=== PATIENT | female | born 1950 | race Caucasian/White ===

== ENCOUNTER 2017-01-22 15:38 | Emergency (ER) | payer MEDICARE ==
[2017-01-22] MEDS ORDERED: oxyCODONE TAB* 5 MG TAB PO ONE (16:31)
--- NOTE | 2017-01-22 16:56 | RAD ---
HISTORY: Hip pain, status post fall COMPARISONS: None relevant TECHNIQUE: Multiple contiguous axial CT images are obtained of the pelvis, with coronal and sagittal multiplanar reconstructions, without intravenous contrast administration. FINDINGS: BONE DENSITY: Normal. BONES: There are subacute appearing pelvic fractures of the left inferior pubic ramus and superior pubic ramus. There is minimal displacement. There is minimal periosteal reaction and callus formation There is a bone island of L5. There is a nondisplaced oblique transverse fracture through the S2 vertebral body. JOINTS: There is mild osteoarthritis of the hips bilaterally. MUSCULATURE: Unremarkable ALIGNMENT: There is no dislocation. SOFT TISSUES: Unremarkable. OTHER FINDINGS: Degenerative changes are noted of the spine IMPRESSION: 1. SUBACUTE APPEARING FRACTURES OF THE LEFT INFERIOR AND SUPERIOR PUBIC RAMI. 2. NONDISPLACED FRACTURE THROUGH THE S2 VERTEBRAL BODY.
--- NOTE | 2017-01-22 16:57 | ED ---
Lower Extremity - HPI Summary HPI Summary: 66F w/ PMH of cardiac disease presents with right hip pain for 2 weeks s/p fall two weeks ago. She fell out of wheelchair two weeks ago and landed on her butt. She has been able to ambulate with pain to the right hip. She normal gets around with walker or wheelchair. She states pain since has been constant but today it got worst. She denies any loss of bowel or bladder and saddle anaesthesia. she states she took an unknown amount of norco today. She states she ran out of oxycodone so do not take any today. She has a follow up with ortho for tuesday already and PT set up also. - History of Current Complaint Chief Complaint: EDExtremityLower Stated Complaint: RIGHT HIP PAIN Time Seen by Provider: 01/22/17 16:15 Pain Intensity: 6 - Allergies/Home Medications Allergies/Adverse Reactions: Allergies Allergy/AdvReac Type Severity Reaction Status Date / Time Penicillins [PCN] Allergy Unknown Rash And Verified 01/22/17 15:45 Itching PMH/Surg Hx/FS Hx/Imm Hx Endocrine/Hematology History: Reports: Hx Anticoagulant Therapy, Hx Diabetes Denies: Hx Blood Disorders, Hx Blood Transfusions, Hx Bone Marrow Disease, Hx Systemic Lupus Erythematosus, Hx Sickle Cell Disease, Hx Thyroid Disease, Hx Anemia, Hx Unexplained Bleeding, Other Endocrine/Hematological Disorders Cardiovascular History: Reports: Hx Angina, Hx Auto Implanted Cardiovert Defib, Hx Cardiomegaly, Hx Congestive Heart Failure, Hx Coronary Artery Disease - CABG, Cardiomyopthy,ICD, Hx Hypertension, Hx Myocardial Infarction, Hx Pacemaker/ICD, Hx 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, Other Cardiovascular Problems/ Disorders - DOUBLE BYPASS & MITRAL VALVE REPLACEMENT Denies: Hx Aneurysm, Hx Angioplasty, Hx Cardiac Arrest, Hx Congenital Heart Disease, Hx Deep Vein Thrombosis, Hx Hypercholesterolemia, Hx Hypotension, Hx Peripheral Vascular Disease, Hx Rheumatic Fever, Hx Syncope Respiratory History: Reports: Hx Pulmonary Edema Denies: Hx Asthma, Hx Chronic Bronchitis, Hx Chronic Obstructive Pulmonary Disease (COPD), Hx Cystic Fibrosis, Hx Lung Cancer, Hx Pleural Effusion, Hx Pneumonia, Hx Pulmonary Embolism, Hx Seasonal Allergies, Hx Sleep Apnea, Other Respiratory Problems/Disorders GI History: Denies: Hx Cirrhosis, Hx Crohn's Disease, Hx Diverticulosis, Hx Gall Bladder Disease, Hx Gastroesophageal Reflux Disease, Hx Gastrointestinal Bleed, Hx Hiatal Hernia, Hx Irritable Bowel, Hx Jaundice, Hx Obstructive Bowel, Hx Ileostomy, Hx Pyloric Stenosis, Hx Ulcer, Other GI Disorders History: Reports: Hx Kidney Stones Denies: Hx Acute Renal Failure, Hx Benign Prostatic Hyperplasia, Hx Chronic Renal Failure, Hx Dialysis, Hx Kidney Infection, Other Problems/Disorders Musculoskeletal History: Denies: Other Musculoskeletal History Sensory History: Reports: Hx Cataracts - 07/18 TOM, Hx Contacts or Glasses, Hx Vision Problem - 02/13/13: glasses Denies: Hx Eye Injury, Hx Eye Prosthesis, Hx Glaucoma, Hx Macular Degeneration, Hx Deafness, Hx Hearing Aid, Hx Hearing Problem, Other Sensory Impairments Opthamlomology History: Reports: Hx Cataracts - 07/18 TOM, Hx Contacts or Glasses, Hx Vision Problem - 02/13/13: glasses Denies: Hx Eye Injury, Hx Eye Prosthesis, Hx Glaucoma, Hx Macular Degeneration, Other Sensory Impairments Neurological History: Reports: Other Neuro Impairments/Disorders - DIABETIC NEUROPATHY Denies: Hx Dementia, Hx Developmental Delay Psychiatric History: Reports: Hx Depression Denies: Hx Anxiety, Hx Attention Deficit Hyperactivity Disorder, Hx Eating Disorder, Hx Panic Disorder, Hx Post Traumatic Stress Disorder, Hx Inpatient Treatment, Hx Community Mental Health Tx, Hx Schizophrenia, Hx Bipolar Disorder , Hx Suicide Attempt, Hx of Violent Episodes Against Others, Hx Substance Abuse , Other Psychiatric Issues/Disorders - Cancer History Hx Chemotherapy: No Hx Radiation Therapy: No - Surgical History Surgery Procedure, Year, and Place: CABG 12/2012, Cataracts 07/2013, Defib/ pacemaker 2012, C section, Gastric bypass 2002, paniculectomy Hx Anesthesia Reactions: No Infectious Disease History: No Infectious Disease History: Denies: Hx Clostridium Difficile, Hx Hepatitis, Hx Shingles, Hx Tuberculosis , Traveled Outside the [place] in Last 30 Days - Family History Known Family History: Positive: Cardiac Disease - Social History Alcohol Use: Rare Substance Use Type: Reports: None Smoking Status (MU): Former Smoker Type: Cigarettes Have You Smoked in the Last Year: No Review of Systems Negative: Fever Negative: Chest Pain Negative: Shortness Of Breath Positive: Myalgia - right hip pain All Other Systems Reviewed And Are Negative: Yes Physical Exam Triage Information Reviewed: Yes Vital Signs On Initial Exam: Initial Vitals Temp Pulse Resp BP Pulse Ox 98.2 F 80 18 114/59 100 01/22/17 15:40 01/22/17 15:40 01/22/17 15:40 01/22/17 15:40 01/22/17 15:40 Vital Signs Reviewed: Yes Appearance: Positive: Pain Distress Skin: Positive: Warm, Dry Head/Face: Positive: Normal Head/Face Inspection Eyes: Positive: Normal, Conjunctiva Clear ENT: Positive: Normal ENT inspection, Pharynx normal, TMs normal Respiratory/Lung Sounds: Positive: Clear to Auscultation, Breath Sounds Present Cardiovascular: Positive: Normal, RRR Musculoskeletal: Positive: Strength/ROM Intact - left hip, Limited @ - right hip due to pain, Passive ROM intake right hip, Other - good pulses Diagnostics - Vital Signs Vital Signs Temp Pulse Resp BP Pulse Ox 01/22/17 15:40 98.2 F 80 18 114/59 100 - Laboratory Lab Statement: Any lab studies that have been ordered have been reviewed, and results considered in the medical decision making process. - CT pelvis CT Interpretation: Positive (See Comments) - IMPRESSION: 1. SUBACUTE APPEARING FRACTURES OF THE LEFT INFERIOR AND SUPERIOR PUBIC RAMI. 2. NONDISPLACED FRACTURE THROUGH THE S2 VERTEBRAL BODY. CT Interpretation Completed By: Radiologist Lower Extremity Course/Dx - Course Course Of Treatment: 66F presents with right hip pain for 2 weeks s/p fall out of wheelchair. She states pain has remained constant for 2 weeks. Her pain is over right hip but fracture is on left side. has been able to ambulate with pain. says pain was just with walking but today started at rest. denies any new injury today. CT shows fracture S4 and left pelvic rami. spoke with dr day for pain managment advise and decided to do equilvant dose of oxycodone into morphine as patient would like morphine so dose is 37 so will have use morphine 15mg twice a day to start and 3 as needed in 2 days if pain not controlled and follow up with dr desai. patient understands and agrees with plan - Diagnoses Differential Diagnosis/HQI/PQRI: Positive: Fracture (Closed), Sprain, Strain Provider Diagnoses: Pelvic fracture - Physician Notifications Discussed Care of Patient With: dr day Time Discussed With Above Provider: 17:45 - discussed pain options, patient wants morphine so suggested start equivalent dose of oxycodone in morphine Discharge - Discharge Plan Condition: Good Disposition: HOME Prescriptions: Morphine TAB (NF) 15 mg PO BID PRN #9 tab MDD 3 PRN Reason: Pain Patient Education Materials: Pelvic Fracture (ED) Referrals: Rubens Desai MD [Primary Care Provider] - Additional Instructions: Take hydrocodone as normal prescribed Take morphine twice a day with minimum of 6 hours between dosage, if pain is very severe can do up to 3 tablets a day Follow up with ortho office Follow up with Dr Desai in 3-4 days Return to ED if develop any new or worsening symptoms
[2017-01-22 17:55] VITALS: BP 104/52
== END 2017-01-22 18:02 | disposition home or self-care (01) ==
LOC: ED 15:38
DX: S32.9XXA Fracture of unspecified parts of lumbosacral spine and pelvis, initial encounter for closed fracture (principal); W05.0XXA Fall from non-moving wheelchair, initial encounter; Y92.9 Unspecified place or not applicable; Z88.0 Allergy status to penicillin; Z87.891 Personal history of nicotine dependence; E11.40 Type 2 diabetes mellitus with diabetic neuropathy, unspecified
CPT/HCPCS: 72192; 99282; A9270-GY

== ENCOUNTER 2017-02-08 12:17 | Inpatient (IN) | payer MEDICARE ==
[2017-02-08] MEDS ORDERED: NS 0.9% 1000 ML* 1,000 ML IV ONE (13:18)
[2017-02-08 13:34] LABS: Hematocrit 33 % (35-47); Mean Corpuscular HGB Conc 33 g/dl (31-36); Mean Corpuscular Hemoglobin 31 pg (27-31); Mean Corpuscular Volume 94 fL (80-97); Mean Platelet Volume 10 um3 (7.4-10.4); Red Blood Count 3.55 10^6/ul (4.0-5.4); Red Cell Distribution Width 14 % (10.5-15)
[2017-02-08 13:46] LABS: Albumin 3.8 g/dL (3.2-5.2); BUN/Creatinine Ratio 38.4 (8-20); C Reactive Protein 20.75 mg/L (< 5.00); EGFR African American 24.4 (>60); Globulin 3.9 g/dL (2-4); Magnesium 2.4 mg/dL (1.9-2.7); Potassium 2.8 mmol/L (3.5-5.0); Total Bilirubin 0.6 mg/dL (0.2-1.0); Total Protein 7.7 g/dL (6.4-8.9)
[2017-02-08 13:57] LABS: TSH (Thyroid Stimulating Horm) 2.27 mcIU/mL (0.34-5.60)
[2017-02-08] MEDS ORDERED: Potassium Chlor TAB* 20 MEQ TAB.ER PO ONE ×2 (14:42→21:00)
[2017-02-08] MEDS: KCL 10 MEQ/50 ML IVPREMIX* 10 MEQ/50 ML BAG IV SCH ×2 (14:50→17:09)
[2017-02-08] MEDS ORDERED: Morphine INJ* 4 MG/ML 1 ML SYRINGE IV PRN (15:42)
[2017-02-08] MEDS ORDERED: Ondansetron INJ* 2 MG/ML VIAL IV PRN (15:42)
[2017-02-08] MEDS ORDERED: Acetaminophen TAB* 325 MG PO PRN (15:42)
[2017-02-08] MEDS ORDERED: NS 0.9% 1000 ML* 1,000 ML IV SCH ×2 (15:45→16:03)
[2017-02-08] MEDS ORDERED: Dextrose 50% Syringe 50 ML* 25 GM/50 ML SYRINGE IV PUSH PRN (15:46)
[2017-02-08] MEDS ORDERED: Morphine TAB (NF) 15 MG TAB PO PRN (15:47)
[2017-02-08] MEDS: Cyclobenzaprine TAB* 10 MG PO PRN (16:15)
--- NOTE | 2017-02-08 16:20 | HP ---
HISTORY AND PHYSICAL:* ADDENDUM: Ms. Gustafson is a 66-year-old female with a history of cardiomyopathy with EF of 25% who stayed over the weekend at one of the local rehab facilities after she was noted to have severe hip pain when she came back from a recent visit to [facility]. She came in to the hospital with complaints of generalized weakness and she was noted to have acute renal failure with hypokalemia, hyponatremia, and hypochloremia. The patient has had significant doses of Lasix at home and she most likely had not been drinking well and had been taking her usual doses of Lasix. The patient is going to be admitted with diagnosis of acute renal failure. She is going to be rehydrated and her diuretic doses are going to be adjusted. Further to evaluate the patient's kidneys, CT without contrast is going to be performed. We will also try to evaluate the patient's bilateral hips while doing the CT of the pelvis. For further details of the patient's presentation and plan, please see history and physical dictated by Candido Mchugh NP, on 02/19 with which I agree. [id number]/CPS #: [id number] MTDD
[2017-02-08 16:26] LABS: Urine Bacteria 1+ (Absent); Urine Bilirubin Negative (Negative); Urine Glucose Negative (Negative); Urine Nitrite Positive (Negative)
[2017-02-08] MEDS ORDERED: Warfarin TAB(*) 2 MG PO SCH (17:00)
[2017-02-08] MEDS ORDERED: cefTRIAXone VIAL(*) 1,000 MG in NS 0.9% 50 ML* 50 ML IVPB SCH (17:00)
--- NOTE | 2017-02-08 17:26 | RAD ---
INDICATION: Right hip pain, acute renal failure. COMPARISON: Comparison is made with a prior CT study of the abdomen and chest from January 09, [address] of the pelvis from January 22, 2017. TECHNIQUE: A CT scan of the abdomen and pelvis was performed without intravenous or oral contrast. Contiguous axial sections were obtained from the lung bases through the symphysis pubis. Images were reconstructed in the coronal and sagittal planes. FINDINGS: There are linear densities at the right lung base most consistent with subsegmental atelectasis. No pleural effusion is seen. No pleural effusion is present. The liver and spleen are within normal limits in size without significant focal abnormality on this noncontrast study. No calcified gallstones are seen. The pancreas appears to be within normal limits in size. The adrenal glands and kidneys are normal in size. There is suggestion of a punctate 1 mm calculus in the lower pole of the right kidney. The calyces and renal pelvises are slightly prominent and similar to the prior exam. 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 No ureteral or bladder calculi are seen. The aorta is normal in caliber with moderate calcific plaque present. No significant enlarged retroperitoneal lymph nodes are seen. The patient appears to be status post gastric bypass surgery which is not well-defined on this noncontrast study. The stomach, small and large bowel appear nondistended. The appendix is within normal limits. There is no evidence for diverticulitis or colitis. No free intraperitoneal air or fluid is seen. There is a chronic mild to moderate compression fracture of the superior endplate of the L3 vertebral body. There is an oblique subacute nondisplaced fracture through the lateral aspect of the S1 vertebra on the right side which appears unchanged. There are comminuted subacute fractures of the left superior and inferior pubic rami which appear similar to the prior exam with bony callus present. No right hip fracture is seen. No hip joint effusion is appreciated. IMPRESSION: 1. 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 THIS APPEARS UNCHANGED FROM THE PRIOR STUDY. 2. SUBACUTE COMMINUTED FRACTURES OF THE LEFT SUPERIOR AND INFERIOR PUBIC RAMI. 3. NONDISPLACED SUBACUTE FRACTURE OF THE S1 VERTEBRA.
[2017-02-08 17:30] LABS: Urine Bacteria 1+ (Absent); Urine Bilirubin Negative (Negative); Urine Glucose Negative (Negative); Urine Nitrite Negative (Negative)
--- NOTE | 2017-02-08 17:43 | HP ---
ATTENDING PHYSICIAN ADDENDUM NOW INCLUDED ON THIS REPORT CC: Dr. Cunningham* HISTORY AND PHYSICAL: DATE OF ADMISSION: 02/08/17 PRIMARY CARE PROVIDER: Dr. Cunningham. ATTENDING PHYSICIAN WHILE IN THE HOSPITAL: Dr. Queenie Hanley * (report dictated by Candido Mchugh NP) CHIEF COMPLAINT: Abnormal labs. HISTORY OF PRESENT ILLNESS: Ms. Gustafson is a 66-year-old female patient who about a week ago was in [facility]. She was ambulating up and down stairs at her daughter's apartment. When she got back from [place] last week, she was having significant amount of right hip pain to the point where she went to the emergency department. She was evaluated on the and was found to have rami fracture in the pelvis and she was also found to have a sacral fracture. She was discharged with pain control. Unfortunately though, the pain has progressed, actually to the point where she was having to caring for herself. She sought care with Dr. Cunningham who evaluated her and felt that she would benefit from a correction facility for rehab and she checked in to [facility] on Tuesday. Labs were obtained and it was found that she had acute renal failure. She does state to me that she has not been really eating or drinking well. She says the pain in her right hip has been progressively getting worse. She denied having any recent trauma to the hip. She does state that she fell in December and in November. The patient states that she has had decreased intake. She says the pain has been increasing. She denies having any pain shooting down the legs. She denies any weakness to the legs. She says that her biggest complaint is that she has pain in her right hip. She denies having any chest pain. No shortness of breath. She denies having any abdominal pain. There has been no nausea or vomiting. She says she had been taking her diuretics as prescribed. She came in to the ER after she was referred here by the [facility] for evaluation. It was noted that she was in acute renal failure and the hospitalist service was asked to evaluate for admission. PAST MEDICAL HISTORY: Significant for: 1. Diabetes. 2. CKD. 3. Depression. 4. Hyperlipidemia. 5. AFib. 6. Neuropathy. 7. Nephropathy. 8. Retinopathy. 9. CAD. 10. CHF with a last known EF of 20% to 25%. 11. History of CVA. PAST SURGICAL HISTORY: 1. She has had gastric bypass. 2. She has had a cholecystectomy. 3. Cataract extraction. 4. . 5. Lithotripsy. 6. CABG with a mitral valve repair. 7. Pacemaker and ICD placement. HOME MEDICATIONS: According to [facility] list include: 1. Morphine 15 mg every 2 hours as needed. 2. Tylenol 650 mg every 4 hours as needed. 3. MiraLAX 17 g p.o. daily. 4. Coumadin 3 mg Tuesday, Tuesday, , Tuesday. 5. Melatonin 5 mg at bedtime. 6. Warfarin 2 mg Tuesday, Tuesday, Tuesday. 7. Lasix 40 mg Tuesday, Tuesday, . 8. Lasix 120 mg Tuesday, Tuesday, Tuesday, Tuesday. 9. Benadryl 50 mg daily at bedtime. 10. Coreg 6.25 mg p.o. b.i.d. 11. Candesartan 8 mg daily. 12. Lipitor 10 mg daily. 13. Morphine (MS Contin) 30 mg p.o. b.i.d. 14. Allopurinol 300 mg a day. 15. Trazodone 50 mg at bedtime. 16. Zoloft 100 mg daily. 17. Prandin 0.5 mg p.o. daily. 18. Zaroxolyn 2.5 mg Tuesday. 19. Lantus 8 units subcu daily. 20. Multivitamin 1 tablet daily. ALLERGIES TO MEDICATIONS: PENICILLIN. FAMILY HISTORY: Her mother and father both had heart attacks. Her mother is a diabetic. SOCIAL HISTORY: She does not smoke. She does not drink. Surrogate decision maker is her and her daughter. REVIEW OF SYSTEMS: There is no documented fever. She denied having any significant weight change. There is no double vision. No ear discharge. She denied having any rhinorrhea. No sore throat. No thyroid enlargement. She denied having any chest pain. There was no orthopnea. No nocturnal dyspnea. There was no abdominal pain. No nausea. No vomiting. No dysuria. No frequency. There was no seizure. No loss of consciousness. No pruritus and no skin ulcerations. Review of 14 systems completed, all others negative. PHYSICAL EXAMINATION GENERAL: At this time, Ms. Gustafson is a 66-year-old female patient. She is sitting in the ER stretcher. She does not appear to be in any acute distress. VITAL SIGNS: Blood pressure 104/57, pulse 88, respirations 18, O2 sat 99%, and temperature 97.5. HEENT: Head is atraumatic and normocephalic. Eyes: EOMs are intact. Sclerae were anicteric and not pale. Throat: Oral mucosa appears to be dry. No oropharyngeal erythema. NECK: Supple. LUNGS: Clear to auscultation. No wheezes, rales, or rhonchi. HEART: Sounds S1, S2. Regular rate and rhythm. No murmurs, rubs, or gallops. ABDOMEN: Soft, flat, and nontender. Bowel sounds present. EXTREMITIES: She has limited range of motion to the right lower hip; particularly when you go to extend or flex the hip she has pain right along the right lateral aspect of the right hip. It does not radiate down the leg. She has no weakness. Her range of motion is limited due to pain. She is able to move the left leg, 5/5 strength. Distal CSM checks are intact bilaterally. NEUROLOGIC: She is awake, alert. She is oriented x3. Her tongue is midline. Scouring Machine Tender are equal. No gross focal deficits. SKIN: Intact. LABORATORY DATA AND DIAGNOSTIC STUDIES: Today revealed WBC of 10.0, RBC of 3.55, hemoglobin 11.3, hematocrit 33, platelet count 250. Sodium 132, potassium 2.8, chloride of 88 , bicarb 29, BUN 98, creatinine is 2.55, her baseline creatinine appears to be about 1.5 to 1.7. Her glucose 167, lactic 1.6 , calcium 10. Total bili 0.6. Magnesium 2.4. AST 24, ALT 14, alk phos 207. CRP of 20. Albumin 3.8. TSH of 2.27. She did have an EKG obtained today which revealed a normal sinus rhythm. No ST elevation. She had inverted T waves in leads II and aVL, but she has had that previously. She does have what appears to be LVH, but again, the EKGs appear to be similar. She did have an echo just done beginning of January almost about a month ago which did show EF of 20% to 25%. She did have a pelvis CT done on the 20th, which impression: Subacute- appearing fracture of the left inferior and superior rami, nondisplaced fracture to the S2 vertebral body. She did have a nuclear medicine scan which showed impression: Limited exam due to magnitude of activity with obstruction of the inferior wall on both stress and rest exams suggestive of ischemia in the anteroseptal junction from the apex to the base. Dilated left ventricle and diffuse hypokinesis with relative sparing of the anterior wall. Low normal left ventricular ejection fraction. Old medical records were reviewed. ASSESSMENT AND PLAN: Ms. Gustafson is a 66-year-old female patient coming in to the ER today with complaints of worsening right hip pain and abnormal lab data. She will be admitted under inpatient status for: 1. Acute renal failure: I suspect this is probably prerenal from dehydration. She has been taking a pretty good dose of Lasix and her output has not done very well, which I suspect is probably because she is not eating as much because she is on pain medication which is suppressing her appetite. My plan at this point is to go ahead and send off a FENa. I am going to get a CT of the abdomen and pelvis to make sure there is no hydronephrosis. She is urinating here. I am going to hydrate her slowly and then when able we would restart her diuretics. May have to do it at a reduced dose. 2. Right hip pain: I am going to re-image the pelvis to make sure there has not been any progression of the sacral fractures or the rami fractures. There has been no trauma. 3. Diabetes: Lispro sliding scale. 4. Depression: Supportive care will be continued. 5. Hyperlipidemia: Continue statin therapy. 6. Atrial fibrillation: Continue warfarin. She is in sinus. We will follow. 7. Neuropathy: Continue with the current medical regimen. 8. Retinopathy: She can follow up with her primary. 9. Nephropathy: Again, she does have worsening kidney function here today. We will hydrate her and send off a FENa, but I think this is most likely prerenal. 10. History of congestive heart failure: I am going to hold the Lasix and diuretics. I am just going to give her a liter of fluids slowly throughout the next 24 hours. We will monitor her closely as obviously she has increased risk for going into heart failure and we will again diurese her as needed. 11. Coronary artery disease: Continue her beta belle with hold parameters. Stain to be continued. 12. History of cerebrovascular accident: Continue secondary prevention. 13. Code status: Full code. 14. Fluids, electrolytes, and nutrition: She can have a consistent carbohydrate diet. TIME SPENT: Time spent on the admission was approximately 70 minutes; greater than half the time was spent face to face with the patient obtaining my history and physical, other half the time spent going over the plan of care with the patient and implementing plan of care. I did discuss the plan of care with my attending, Dr. Hanley; she is in agreement. CANDIDO MCHUGH NP ADDENDUM: Ms. Gustafson is a 66-year-old female with a history of cardiomyopathy with EF of 25% who stayed over the weekend at one of the local rehab facilities after she was noted to have severe hip pain when she came back from a recent visit to [facility]. She came in to the hospital with complaints of generalized weakness and she was noted to have acute renal failure with hypokalemia, hyponatremia, and hypochloremia. The patient has had significant doses of Lasix at home and she most likely had not been drinking well and had been taking her usual doses of Lasix. The patient is going to be admitted with diagnosis of acute renal failure. She is going to be rehydrated and her diuretic doses are going to be adjusted. Further to evaluate the patient's kidneys, CT without contrast is going to be performed. We will also try to evaluate the patient's bilateral hips while doing the CT of the pelvis. For further details of the patient's presentation and plan, please see history and physical dictated by Candido Mchugh NP, on 02/19 with which I agree. QUEENIE HANLEY MD [id number] #: [id number] #: [id number] LUZ MARIA
[2017-02-08] MEDS: Morphine INJ* 2 MG/ML 1 ML SYRINGE IV PRN (18:28)
[2017-02-08] MEDS: Atorvastatin* 10 MG TAB PO SCH (18:29)
[2017-02-08] MEDS: Insulin LISPRO* 1 UNITS UNIT SUBCUT SCH (18:29)
[2017-02-08] MEDS: traZODone TAB* 50 MG TAB PO SCH (22:16)
[2017-02-08] MEDS: Carvedilol TAB* 6.25 MG PO SCH (22:16)
[2017-02-08] MEDS: Morphine TAB Extended Release (*) 30 MG TAB.ER PO SCH (23:08)
[2017-02-09 04:52] LABS: Hematocrit 30 % (35-47); Hemoglobin 9.6 g/dl (12.0-16.0); Mean Corpuscular HGB Conc 32 g/dl (31-36); Mean Corpuscular Hemoglobin 31 pg (27-31); Mean Corpuscular Volume 95 fL (80-97); Mean Platelet Volume 9 um3 (7.4-10.4); Red Blood Count 3.14 10^6/ul (4.0-5.4); Red Cell Distribution Width 14 % (10.5-15); White Blood Count 8.3 10^3/ul (3.5-10.8)
[2017-02-09 05:09] LABS: EGFR African American 33.6 (>60); EGFR Non-African American 26.1 (>60); Potassium 3.6 mmol/L (3.5-5.0)
--- NOTE | 2017-02-09 07:17 | ED ---
Adams Ash SooYoung, scribed for David Patel MD on 02/08/17 at 1243 . Complex/Multi-Sys Presentation - HPI Summary HPI Summary: A 66 y/o F presents to ED with abnormal lab values and dehydration after having labs drawn this AM [employer] H[employer]. Secondary complaint of shooting pain down leg due to a known hip and pelvis hairline fracture onset last week. She is currently taking morphine and as a result has been eating or drinking much less than usual. Denies other pain, SOB, CP. Pt has previously taken morphine after CABG surgery. - History Of Current Complaint Chief Complaint: EDGeneral Time Seen by Provider: 02/08/17 12:41 Hx Obtained From: Patient, Family/Sap Portal Architect - Onset/Duration: Lasting Hours, Still Present Timing: Constant Severity Currently: Moderate Associated Signs And Symptoms: Positive: Other - pos: abnormal lab values; dehydration. Negative: SOB, Chest Pain, Abdominal Pain - Allergies/Home Medications Allergies/Adverse Reactions: Allergies Allergy/AdvReac Type Severity Reaction Status Date / Time Penicillins [PCN] Allergy Unknown Rash And Verified 01/22/17 15:45 Itching Home Medications: Home Medications Acetaminophen TAB* [Tylenol TAB*] 650 mg PO Q4H PRN MDD 3000 mg 02/08/17 [ History Confirmed 02/08/17] Candesartan Cilexetil [Atacand] 8 mg PO DAILY 02/08/17 [History Confirmed ] Furosemide TAB* [Lasix TAB*] 40 mg PO SUTUTH 02/08/17 [History Confirmed ] Furosemide TAB* [Lasix TAB*] 120 mg PO MOWEFRSA 02/08/17 [History Confirmed 02/19] Insulin GLARGINE(*) [Lantus(*)] 8 units SUBCUT DAILY 02/08/17 [History Confirmed 02/08/17] Melatonin 5 mg PO BEDTIME 02/08/17 [History Confirmed 02/08/17] Metolazone TAB* [Zaroxolyn TAB*] 2.5 mg PO BEASLEY 02/08/17 [History Confirmed ] Morphine Sulfate [Diana] 10 mg PO ONCE 02/08/17 [History Confirmed 02/08/17] Morphine TAB (NF) 15 mg PO Q2HR PRN 02/08/17 [History Confirmed 02/08/17] Morphine TAB Extended Rel(*) [Ms Contin(*)] 30 mg PO BID 02/08/17 [History Confirmed 02/08/17] Multivitamins/Minerals TAB* [Theragran/minerals TAB*] 1 tab PO DAILY 02/08/17 [ History Confirmed 02/08/17] Polyethylene Glycol 3350* [Miralax*] 17 gm PO DAILY 02/08/17 [History Confirmed 02/08/17] Repaglinide TAB* [Prandin TAB*] 0.5 mg PO DAILY 02/08/17 [History Confirmed 02/19] Sertraline* [Zoloft*] 100 mg PO DAILY 02/08/17 [History Confirmed 02/08/17] Warfarin TAB(*) [Coumadin TAB(*)] 2 mg PO SUTUFR 02/08/17 [History Confirmed 02/19] Warfarin TAB(*) [Coumadin TAB(*)] 3 mg PO MOWETHSA 02/08/17 [History Confirmed 02/08/17] diPHENhydraMINE PO* [Benadryl PO 50 MG CAP*] 50 mg PO BEDTIME 02/08/17 [History Confirmed 02/08/17] traZODone TAB* [Desyrel TAB*] 50 mg PO BEDTIME 02/08/17 [History Confirmed 02/08] PMH/Surg Hx/FS Hx/Imm Hx Previously Healthy: No Endocrine/Hematology History: Reports: Hx Anticoagulant Therapy, Hx Diabetes Denies: Hx Blood Disorders, Hx Blood Transfusions, Hx Bone Marrow Disease, Hx Systemic Lupus Erythematosus, Hx Sickle Cell Disease, Hx Thyroid Disease, Hx Anemia, Hx Unexplained Bleeding, Other Endocrine/Hematological Disorders Cardiovascular History: Reports: Hx Angina, Hx Auto Implanted Cardiovert Defib, Hx Cardiomegaly, Hx Congestive Heart Failure, Hx Coronary Artery Disease - CABG, Cardiomyopthy,ICD, Hx Hypertension, Hx Myocardial Infarction, Hx Pacemaker/ICD, Hx 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, Other Cardiovascular Problems/ Disorders - DOUBLE BYPASS & MITRAL VALVE REPLACEMENT Denies: Hx Aneurysm, Hx Angioplasty, Hx Cardiac Arrest, Hx Congenital Heart Disease, Hx Deep Vein Thrombosis, Hx Hypercholesterolemia, Hx Hypotension, Hx Peripheral Vascular Disease, Hx Rheumatic Fever, Hx Syncope Respiratory History: Reports: Hx Pulmonary Edema Denies: Hx Asthma, Hx Chronic Bronchitis, Hx Chronic Obstructive Pulmonary Disease (COPD), Hx Cystic Fibrosis, Hx Lung Cancer, Hx Pleural Effusion, Hx Pneumonia, Hx Pulmonary Embolism, Hx Seasonal Allergies, Hx Sleep Apnea, Other Respiratory Problems/Disorders GI History: Denies: Hx Cirrhosis, Hx Crohn's Disease, Hx Diverticulosis, Hx Gall Bladder Disease, Hx Gastroesophageal Reflux Disease, Hx Gastrointestinal Bleed, Hx Hiatal Hernia, Hx Irritable Bowel, Hx Jaundice, Hx Obstructive Bowel, Hx Ileostomy, Hx Pyloric Stenosis, Hx Ulcer, Other GI Disorders History: Reports: Hx Kidney Stones Denies: Hx Acute Renal Failure, Hx Benign Prostatic Hyperplasia, Hx Chronic Renal Failure, Hx Dialysis, Hx Kidney Infection, Other Problems/Disorders Musculoskeletal History: Denies: Other Musculoskeletal History Sensory History: Reports: Hx Cataracts - 07/18 TOM, Hx Contacts or Glasses, Hx Vision Problem - 02/13/13: glasses Denies: Hx Eye Injury, Hx Eye Prosthesis, Hx Glaucoma, Hx Macular Degeneration, Hx Deafness, Hx Hearing Aid, Hx Hearing Problem, Other Sensory Impairments Opthamlomology History: Reports: Hx Cataracts - 07/18 TOM, Hx Contacts or Glasses, Hx Vision Problem - 02/13/13: glasses Denies: Hx Eye Injury, Hx Eye Prosthesis, Hx Glaucoma, Hx Macular Degeneration, Other Sensory Impairments Neurological History: Reports: Other Neuro Impairments/Disorders - DIABETIC NEUROPATHY Denies: Hx Dementia, Hx Developmental Delay Psychiatric History: Reports: Hx Depression Denies: Hx Anxiety, Hx Attention Deficit Hyperactivity Disorder, Hx Eating Disorder, Hx Panic Disorder, Hx Post Traumatic Stress Disorder, Hx Inpatient Treatment, Hx Community Mental Health Tx, Hx Schizophrenia, Hx Bipolar Disorder , Hx Suicide Attempt, Hx of Violent Episodes Against Others, Hx Substance Abuse , Other Psychiatric Issues/Disorders - Cancer History Hx Chemotherapy: No Hx Radiation Therapy: No - Surgical History Surgery Procedure, Year, and Place: CABG 12/2012, Cataracts 07/2013, Defib/ pacemaker 2012, C section, Gastric bypass 2002, paniculectomy Hx Anesthesia Reactions: No - Immunization History Date of Tetanus Vaccine: UTD Date of Influenza Vaccine: UTD Infectious Disease History: No Infectious Disease History: Denies: Hx Clostridium Difficile, Hx Hepatitis, Hx Shingles, Hx Tuberculosis , Traveled Outside the [place] in Last 30 Days - Family History Known Family History: Positive: Cardiac Disease - Social History Occupation: Retired Lives: Alone Alcohol Use: Rare Hx Substance Use: No Substance Use Type: Reports: None Hx Tobacco Use: Yes Smoking Status (MU): Former Smoker Type: Cigarettes Have You Smoked in the Last Year: No Review of Systems Positive: Other - pos: dehydrated; abnormal lab values Negative: Chest Pain Negative: Shortness Of Breath Negative: Abdominal Pain All Other Systems Reviewed And Are Negative: Yes Physical Exam - Summary Physical Exam Summary: Vital signs: reviewed General: Patient is comfortable lying in stretcher with no signs of distress HEENT: within normal limits except for dry nasal and oral mucosa. Lungs: CTA B/L CVS: S1 & S2 present. No murmurs appreciated. ABDOMEN: Soft, non-tender. No signs of distention. No rebound no guarding, and no masses palpated. Bowel sounds are normal. EXTREMITIES: Decreased ROM in the lower extremities secondary to ramus fracture. . NEURO: Alert and oriented x 3. No acute neurological deficits. Speech is normal and follows commands. SKIN: Dry and warm Triage Information Reviewed: Yes Vital Signs On Initial Exam: Initial Vitals Temp Pulse Resp BP Pulse Ox 97.5 F 78 16 107/63 100 02/08/17 12:29 02/08/17 12:29 02/08/17 12:29 02/08/17 12:29 02/08/17 12:29 Vital Signs Reviewed: Yes - Ruthy Coma Scale Coma Scale Total: 15 Diagnostics - Vital Signs Vital Signs Temp Pulse Resp BP Pulse Ox 02/08/17 12:29 97.5 F 78 16 107/63 100 - Laboratory Lab Results: Lab Results 02/08/17 02/08/17 02/08/17 Range/Units 12:55 12:55 12:55 WBC 10.0 (3.5-10.8) 10^3/ul RBC 3.55 L (4.0-5.4) 10^6/ul Hgb 11.0 L (12.0-16.0) g/dl Hct 33 L (35-47) % MCV 94 (80-97) fL MCH 31 (27-31) pg MCHC 33 (31-36) g/dl RDW 14 (10.5-15) % Plt Count 250 (150-450) 10^3/ul MPV 10 (7.4-10.4) um3 Neut % (Auto) 77.8 (38-83) % Lymph % (Auto) 13.4 L (25-47) % [place] % (Auto) 4.6 (1-9) % Eos % (Auto) 3.2 (0-6) % Baso % (Auto) 1.0 (0-2) % Absolute Neuts (auto) 7.8 H (1.5-7.7) 10^3/ul Absolute Lymphs (auto) 1.3 (1.0-4.8) 10^3/ul Absolute Monos (auto) 0.5 (0-0.8) 10^3/ul Absolute Eos (auto) 0.3 (0-0.6) 10^3/ul Absolute Basos (auto) 0.1 (0-0.2) 10^3/ul Absolute Nucleated RBC 0 10^3/ul Nucleated RBC % 0 INR (Anticoag Therapy) (0.89-1.11) Sodium 132 L (133-145) mmol/L Potassium 2.8 L (3.5-5.0) mmol/L Chloride 88 L (101-111) mmol/L Carbon Dioxide 29 (22-32) mmol/L Anion Gap 15 H (2-11) mmol/L BUN 98 H (6-24) mg/dL Creatinine 2.55 H (0.51-0.95) mg/dL Est GFR ( Amer) 24.4 (>60) Est GFR (Non-Af Amer) 19.0 (>60) BUN/Creatinine Ratio 38.4 H (8-20) Glucose 167 H (70-100) mg/dL Lactic Acid 1.6 (0.5-2.0) mmol/L Calcium 10.0 (8.6-10.3) mg/dL Magnesium 2.4 (1.9-2.7) mg/dL Total Bilirubin 0.60 (0.2-1.0) mg/dL AST 25 (13-39) U/L ALT 14 (7-52) U/L Alkaline Phosphatase 207 H (34-104) U/L C-Reactive Protein 20.75 H (< 5.00) mg/L Total Protein 7.7 (6.4-8.9) g/dL Albumin 3.8 (3.2-5.2) g/dL Globulin 3.9 (2-4) g/dL Albumin/Globulin Ratio 1.0 (1-3) TSH 2.27 (0.34-5.60) mcIU/mL 02/08/17 Range/Units 12:55 WBC (3.5-10.8) 10^3/ul RBC (4.0-5.4) 10^6/ul Hgb (12.0-16.0) g/dl Hct (35-47) % MCV (80-97) fL MCH (27-31) pg MCHC (31-36) g/dl RDW (10.5-15) % Plt Count (150-450) 10^3/ul MPV (7.4-10.4) um3 Neut % (Auto) (38-83) % Lymph % (Auto) (25-47) % Gal[place] % (Auto) (1-9) % Eos % (Auto) (0-6) % Baso % (Auto) (0-2) % Absolute Neuts (auto) (1.5-7.7) 10^3/ul Absolute Lymphs (auto) (1.0-4.8) 10^3/ul Absolute Monos (auto) (0-0.8) 10^3/ul Absolute Eos (auto) (0-0.6) 10^3/ul Absolute Basos (auto) (0-0.2) 10^3/ul Absolute Nucleated RBC 10^3/ul Nucleated RBC % INR (Anticoag Therapy) 1.74 H (0.89-1.11) Sodium (133-145) mmol/L Potassium (3.5-5.0) mmol/L Chloride (101-111) mmol/L Carbon Dioxide (22-32) mmol/L Anion Gap (2-11) mmol/L BUN (6-24) mg/dL Creatinine (0.51-0.95) mg/dL Est GFR ( Amer) (>60) Est GFR (Non-Af Amer) (>60) BUN/Creatinine Ratio (8-20) Glucose (70-100) mg/dL Lactic Acid (0.5-2.0) mmol/L Calcium (8.6-10.3) mg/dL Magnesium (1.9-2.7) mg/dL Total Bilirubin (0.2-1.0) mg/dL AST (13-39) U/L ALT (7-52) U/L Alkaline Phosphatase (34-104) U/L C-Reactive Protein (< 5.00) mg/L Total Protein (6.4-8.9) g/dL Albumin (3.2-5.2) g/dL Globulin (2-4) g/dL Albumin/Globulin Ratio (1-3) TSH (0.34-5.60) mcIU/mL Result Diagrams: 02/08/17 12:55 02/08/17 12:55 Lab Statement: Any lab studies that have been ordered have been reviewed, and results considered in the medical decision making process. 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 Secondary complaint of shooting pain down leg due to a known hip and pelvis hairline fracture onset last week. She is currently taking morphine and as a result has been eating or drinking much less than usual. Denies other pain, SOB, CP. Pt has previously taken morphine after CABG surgery. Test results show slight chronic anemia, sodium of 132, potassium of 2.8, BUN of 98, creatine of 2.55 which is consistent with acute on chronic renal failure. C-RP is 20.75. UA is contaminated and will wait for urine cultures. . In ED course, pt given IV fluids, since pt's dehydration may be cause of the acute renal failure. Pt given KCl. Discussed findings and results with Dr. Cunningham, PCP, who recommends admittance to the medical team. Discussed with Dr. Hanley who accepted pt for admission. - Diagnoses Differential Diagnoses/HQI/PQRI: Other - Dehydration, Renal failure Provider Diagnoses: Renal failure, Dehydration - Physician Notifications Discussed Care Of Patient With: Rubens Cunningham - PCP Time Discussed With Above Provider: 15:03 Instructed by Provider To: Other - recommends admitting pt Discharge - Discharge Plan Condition: Stable Disposition: ADMITTED TO [facility] Consult Consult: 1505: Dr. Hanley, hospitalist Will admit. The documentation as recorded by the Adams hagen SooYoung accurately reflects the service I personally performed and the decisions made by me, David Patel MD.
[2017-02-09] MEDS ORDERED: Polyethylene Glycol 3350* 17 GM PACKET PO SCH (09:00)
[2017-02-09] MEDS: Insulin GLARGINE(*) 1 UNITS UNIT SUBCUT SCH (09:11)
[2017-02-09] MEDS: Insulin LISPRO* 1 UNITS UNIT SUBCUT SCH ×3 (09:12→17:25)
[2017-02-09] MEDS: Sertraline* 100 MG TAB PO SCH (09:13)
[2017-02-09] MEDS: Morphine TAB Extended Release (*) 30 MG TAB.ER PO SCH (09:13)
[2017-02-09] MEDS: Carvedilol TAB* 6.25 MG PO SCH ×2 (09:13→20:57)
--- NOTE | 2017-02-09 09:24 | PN ---
Subjective - Subjective Reason for Note: Progress Note History: I have reviewed presentation with the Adam Gustafson, her Mian who is present at this visit and with the H and P provided by Eze Mchugh NP. I am her primary care physician and have been involved in her recent medical care. She sustained fractures of her left superior and inferior pubic rami, she also has a subacute fracture of S1. There is a gap of several weeks between the fall she sustained from her wheelchair and the onset of pain. I recommended to the family she transfer to [facility] as she was not safe at home. She was there over the weekend and has become dehydrated and presented to the emergency room with pre-renal renal insufficiency ontop of underlying chronic diabetic nephropathy with CKD. She has been eating and drinking at [place]. However, she told me she was offered soda and can't drink this owing to her previous bariatric surgery. This morning she has 7/10 right hip pain at rest and this increases on any movement. She is unable to mobilize. However, she has managed PT at [facility]. She ate 1/2 her meal last night and is drinking. She has been given IVF. 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) I51.89 Coronary artery disease (Chronic) I25.10 History of bariatric surgery (Chronic) Z98.84 History of cerebrovascular disease (Chronic) Z86.79 History of coronary artery bypass graft x 2 (Chronic) Z95.1 Presence of combination internal cardiac defibrillator (ICD) and pacemaker ( Chronic) Z95.810 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) E11.22, N18.3 Type 2 diabetes mellitus (Chronic) Current Medications: Current Medications Acetaminophen (Tylenol Tab*) 650 mg PO Q4H PRN PRN Reason: FEVER/PAIN Atorvastatin Calcium (Lipitor*) 10 mg PO QPM [facility] Last Admin: 02/08/17 18:29 Dose: 10 mg Carvedilol (Coreg Tab*) 6.25 mg PO BID [facility] Last Admin: 02/09/17 09:13 Dose: 6.25 mg Cyclobenzaprine HCl (Flexeril Tab*) 10 mg PO BID PRN PRN Reason: SPASMS Last Admin: 02/08/17 16:15 Dose: 10 mg Dextrose (D50w Syringe 50 Ml*) 12.5 gm IV PUSH .FOR FS < 60 - SS PRN PRN Reason: FS < 60 Sodium Chloride (Ns 0.9% 1000 Ml*) 1,000 mls @ 75 mls/hr IV PER RATE [facility] Ceftriaxone Sodium 1,000 mg/ (Sodium Chloride) 50 mls @ 200 mls/hr IVPB Q24H [facility] Last Admin: 02/08/17 22:09 Dose: 200 mls/hr Insulin Glargine (Lantus(*)) 8 units SUBCUT DAILY [facility] Last Admin: 02/09/17 09:11 Dose: 8 units Insulin Human Lispro (Humalog*) 0 units SUBCUT AC [facility] PRN Reason: Protocol Last Admin: 02/09/17 09:12 Dose: 3 units Morphine Sulfate (Ms Contin(*)) 30 mg PO BID [facility] Last Admin: 02/09/17 09:13 Dose: 30 mg Morphine Sulfate (Morphine Inj (Syringe)*) 2 mg IV Q4H PRN PRN Reason: PAIN Last Admin: 02/08/17 18:28 Dose: 2 mg Ondansetron HCl (Zofran Inj*) 4 mg IV Q6H PRN PRN Reason: NAUSEA Oxycodone HCl (Roxycodone Tab*) 10 mg PO Q6H PRN PRN Reason: PAIN Polyethylene Glycol/Electrolytes (Miralax*) 17 gm PO DAILY [facility] Last Admin: 02/09/17 09:19 Dose: Not Given Sertraline HCl (Zoloft*) 100 mg PO DAILY [facility] Last Admin: 02/09/17 09:13 Dose: 100 mg Trazodone HCl (Desyrel Tab*) 50 mg PO BEDTIME [facility] Last Admin: 02/08/17 22:16 Dose: 50 mg Warfarin Sodium (Coumadin Tab(*)) 2 mg PO SuTuFr@1700 [facility] PRN Reason: Protocol Last Admin: 02/08/17 18:29 Dose: 2 mg Warfarin Sodium (Coumadin Tab(*)) 3 mg PO MoWeThSa@1700 [facility] PRN Reason: Protocol - Review of Systems Constitutional Symptoms: No: Fever Cardiology: Negative: Chest Pain, Shortness of Breath, Palpitations, Swelling of Ankles Gastroenterology: Negative: Abdominal Pain, Nausea, Vomiting, Change in Bowel Habits - BM yesterday Genital - Urinary: Positive: Normal Home Medications: Home Medications Medication Instructions Recorded Confirmed Type Allopurinol TAB* [Zyloprim 300 MG 300 mg PO DAILY 12/11/12 02/08/17 History TAB*] Carvedilol TAB* [Coreg TAB*] 6.25 mg PO BID 12/11/12 02/08/17 History Atorvastatin* [Lipitor 10 MG*] 10 mg PO QPM 02/12/13 02/08/17 History Acetaminophen TAB* [Tylenol TAB*] 650 mg PO Q4H PRN MDD 3000 mg 02/08/17 History Candesartan Cilexetil [Atacand] 8 mg PO DAILY 02/08/17 02/08/17 History Furosemide TAB* [Lasix TAB*] 40 mg PO SUTUTH 02/08/17 02/08/17 History Furosemide TAB* [Lasix TAB*] 120 mg PO MOWEFRSA 02/08/17 02/08/17 History Insulin GLARGINE(*) [Lantus(*)] 8 units SUBCUT DAILY 02/08/17 02/08/17 History Melatonin 5 mg PO BEDTIME 02/08/17 02/08/17 History Metolazone TAB* [Zaroxolyn TAB*] 2.5 mg PO BEASLEY 02/08/17 02/08/17 History Morphine Sulfate [Diana] 10 mg PO ONCE 02/08/17 02/08/17 History Morphine TAB (NF) 15 mg PO Q2HR PRN 02/08/17 02/08/17 History Morphine TAB Extended Rel(*) [Ms 30 mg PO BID 02/08/17 02/08/17 History Contin(*)] Multivitamins/Minerals TAB* 1 tab PO DAILY 02/08/17 02/08/17 History [Theragran/minerals TAB*] Polyethylene Glycol 3350* 17 gm PO DAILY 02/08/17 02/08/17 History [Miralax*] Repaglinide TAB* [Prandin TAB*] 0.5 mg PO DAILY 02/08/17 02/08/17 History Sertraline* [Zoloft*] 100 mg PO DAILY 02/08/17 02/08/17 History Warfarin TAB(*) [Coumadin TAB(*)] 2 mg PO SUTUFR 02/08/17 02/08/17 History Warfarin TAB(*) [Coumadin TAB(*)] 3 mg PO MOWETHSA 02/08/17 02/08/17 History diPHENhydraMINE PO* [Benadryl PO 50 mg PO BEDTIME 02/08/17 02/08/17 History 50 MG CAP*] traZODone TAB* [Desyrel TAB*] 50 mg PO BEDTIME 02/08/17 02/08/17 History Allergies: Allergies Allergy/AdvReac Type Severity Reaction Status Date / Time Penicillins [PCN] Allergy Unknown Rash And Verified 01/22/17 15:45 Itching Objective - Vital Signs Vital Signs: Vital Signs 02/08/17 02/08/17 02/08/17 16:00 16:38 17:00 Temperature Pulse Rate 90 84 80 Respiratory Rate Blood Pressure 107/85 122/71 114/59 (mmHg) O2 Sat by Pulse 100 100 86 Oximetry 02/08/17 02/08/17 02/08/17 17:17 17:21 18:25 Temperature 97.6 F 97.5 F Pulse Rate 91 88 Respiratory 16 Rate Blood Pressure 129/72 (mmHg) O2 Sat by Pulse 100 100 Oximetry 02/08/17 02/08/17 02/08/17 18:28 20:00 20:08 Temperature 98.0 F Pulse Rate 76 Respiratory 16 18 18 Rate Blood Pressure 76/47 (mmHg) O2 Sat by Pulse 97 Oximetry 02/08/17 02/08/17 02/09/17 20:15 23:08 00:00 Temperature Pulse Rate 75 Respiratory 18 20 Rate Blood Pressure 88/57 (mmHg) O2 Sat by Pulse Oximetry 02/09/17 02/09/17 02/09/17 00:11 01:08 01:59 Temperature 98.6 F Pulse Rate 80 Respiratory 20 16 16 Rate Blood Pressure 90/54 (mmHg) O2 Sat by Pulse 96 Oximetry 02/09/17 02/09/17 02/09/17 03:49 07:27 07:38 Temperature 98.1 F 97.8 F Pulse Rate 74 78 Respiratory 20 16 18 Rate Blood Pressure 103/52 111/53 (mmHg) O2 Sat by Pulse 98 99 Oximetry 02/09/17 09:13 Temperature Pulse Rate Respiratory 20 Rate Blood Pressure (mmHg) O2 Sat by Pulse Oximetry - Intake and Output Intake and Output: Intake & Output 02/06/17 02/07/17 02/08/17 02/09/17 11:59 11:59 11:59 11:59 Intake Total 699 Output Total 400 Balance 299 Weight 170 lb Intake: IV Fluids 599 NS (0.9%) 549 potassium 10 meq 50 IVPB 50 potassium 10 meq 50 Oral 50 Output: Urine 400 Other: Estimated Void Medium # Bowel Movements 0 # Voids 2 ADLs: Meal Record Start: 02/08/17 16: 35 Freq: DAILY@0900,1400,1800 Status: Active Document 02/08/17 18:00 [id number] (Rec: 02/08/17 20:45 [id number]) Intake and Output Start: 02/08/17 16: 35 Freq: DAILY@0600,1400,2200 Status: Active Document 02/08/17 22:00 [id number] (Rec: 02/08/17 22:22 [id number]) Document 02/09/17 06:00 [id number] (Rec: 02/09/17 06:09 [id number]) - Physical Exam General: No Cyanosis, Yes Anemia, No Jaundice, No Clubbing Lungs and Chest: Yes: Chest Expansion Full, Chest Expansion Symetrica, Percussion Note Resonant, Vessicular Breath Sounds. No: Crackles, Wheezes, Respiratory Distress Heart Rate and Rhythm: Regular JVP: Not Elevated Additional Cardiovascular: Yes: Normal Heart Sounds. No: Heart Murmur, Pedal Edema Abdominal Exam: Yes: Soft, Bowel Sounds Present. No: Distention, Abdominal Mass , Hepatomegaly, Abdominal Tenderness - Extremities Cranial Nerves II-XII Intact: Yes Limbs: Normal Power - legs limited by pain, Normal Tone Results - Results Lab Results: Laboratory Results - last 24 hr 02/08/17 02/08/17 02/08/17 15:56 17:10 17:10 WBC RBC Hgb Hct MCV MCH MCHC RDW Plt Count MPV Neut % (Auto) Lymph % (Auto) [place] % (Auto) Eos % (Auto) Baso % (Auto) Absolute Neuts (auto) Absolute Lymphs (auto) Absolute Monos (auto) Absolute Eos (auto) Absolute Basos (auto) Absolute Nucleated RBC Nucleated RBC % INR (Anticoag Therapy) Sodium Potassium Chloride Carbon Dioxide Anion Gap BUN Creatinine Est GFR ( Amer) Est GFR (Non-Af Amer) BUN/Creatinine Ratio Glucose POC Glucose (mg/dL) Calcium Urine Color Yellow Yellow Urine Appearance Cloudy Cloudy Urine pH 5.0 5.0 Ur Specific [place] 1.008 L 1.008 L Urine Protein Negative Negative Urine Ketones Negative Negative Urine Blood Negative Negative Urine Nitrate Positive H Negative Urine Bilirubin Negative Negative Urine Urobilinogen Negative Negative Ur Leukocyte Esterase 2+ H 2+ H Urine WBC (Auto) 1+(6-10/hpf) H 1+(6-10/hpf) H Urine RBC (Auto) Absent Trace(0-2/hpf) Ur Squamous Epith Cells Present H Present H Urine Bacteria 1+ H 1+ H Hyaline Casts Present H Ur Random Creatinine 53.13 Ur Random Sodium 72 Urine Glucose Negative Negative 02/08/17 02/09/17 02/09/17 18:06 04:32 04:32 WBC 8.3 RBC 3.14 L Hgb 9.6 L Hct 30 L MCV 95 MCH 31 MCHC 32 RDW 14 Plt Count 205 MPV 9 Neut % (Auto) 63.0 Lymph % (Auto) 25.1 [place] % (Auto) 5.0 Eos % (Auto) 6.1 H Baso % (Auto) 0.8 Absolute Neuts (auto) 5.2 Absolute Lymphs (auto) 2.1 Absolute Monos (auto) 0.4 Absolute Eos (auto) 0.5 Absolute Basos (auto) 0.1 Absolute Nucleated RBC 0 Nucleated RBC % 0 INR (Anticoag Therapy) 1.78 H Sodium Potassium Chloride Carbon Dioxide Anion Gap BUN Creatinine Est GFR ( Amer) Est GFR (Non-Af Amer) BUN/Creatinine Ratio Glucose POC Glucose (mg/dL) 184 H Calcium Urine Color Urine Appearance Urine pH Ur Specific [place] Urine Protein Urine Ketones Urine Blood Urine Nitrate Urine Bilirubin Urine Urobilinogen Ur Leukocyte Esterase Urine WBC (Auto) Urine RBC (Auto) Ur Squamous Epith Cells Urine Bacteria Hyaline Casts Ur Random Creatinine Ur Random Sodium Urine Glucose 02/09/17 02/09/17 04:32 07:31 WBC RBC Hgb Hct MCV MCH MCHC RDW Plt Count MPV Neut % (Auto) Lymph % (Auto) [place] % (Auto) Eos % (Auto) Baso % (Auto) Absolute Neuts (auto) Absolute Lymphs (auto) Absolute Monos (auto) Absolute Eos (auto) Absolute Basos (auto) Absolute Nucleated RBC Nucleated RBC % INR (Anticoag Therapy) Sodium 136 Potassium 3.6 Chloride 99 L Carbon Dioxide 30 Anion Gap 7 BUN 85 H Creatinine 1.93 H Est GFR ( Amer) 33.6 Est GFR (Non-Af Amer) 26.1 BUN/Creatinine Ratio 44.0 H Glucose 168 H POC Glucose (mg/dL) 163 H Calcium 9.0 Urine Color Urine Appearance Urine pH Ur Specific [place] Urine Protein Urine Ketones Urine Blood Urine Nitrate Urine Bilirubin Urine Urobilinogen Ur Leukocyte Esterase Urine WBC (Auto) Urine RBC (Auto) Ur Squamous Epith Cells Urine Bacteria Hyaline Casts Ur Random Creatinine Ur Random Sodium Urine Glucose Radiology Results: Patient Name: RUI GUSTAFSON Medical Record#: [id number] Ordering Physician: Candido Mchugh [employer]PERATOR Acct.#: [id number] : 1950 Age: 66 Sex: F Location: [address] [place] [address]/TELEMETRY Exam Date: 02/08/17 1542 ADM Status: ADM IN Order Information: CT ABD/PEL W/O Accession Number: [id number] CPT: 79827 INDICATION: Right hip pain, acute renal failure. COMPARISON: Comparison is made with a prior CT study of the abdomen and chest from January 09, [address] of the pelvis from January 22, 2017. TECHNIQUE: A CT scan of the abdomen and pelvis was performed without intravenous or oral contrast. Contiguous axial sections were obtained from the lung bases through the symphysis pubis. Images were reconstructed in the coronal and sagittal planes. FINDINGS: There are linear densities at the right lung base most consistent with subsegmental atelectasis. No pleural effusion is seen. No pleural effusion is present. The liver and spleen are within normal limits in size without significant focal abnormality on this noncontrast study. No calcified gallstones are seen. The pancreas appears to be within normal limits in size. The adrenal glands and kidneys are normal in size. There is suggestion of a punctate 1 mm calculus in the lower pole of the right kidney. The calyces and renal pelvises are slightly prominent and similar to the prior exam. 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 No ureteral or bladder calculi are seen. The aorta is normal in caliber with moderate calcific plaque present. No significant enlarged retroperitoneal lymph nodes are seen. The patient appears to be status post gastric bypass surgery which is not well- defined on this noncontrast study. The stomach, small and large bowel appear nondistended. The appendix is within normal limits. There is no evidence for diverticulitis or colitis. No free intraperitoneal air or fluid is seen. There is a chronic mild to moderate compression fracture of the superior endplate of the L3 vertebral body. There is an oblique subacute nondisplaced fracture through the lateral aspect of the S1 vertebra on the right side which appears unchanged. There are comminuted subacute fractures of the left superior and inferior pubic rami which appear similar to the prior exam with bony callus present. No right hip fracture is seen. No hip joint effusion is appreciated. IMPRESSION: 1. 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 THIS APPEARS UNCHANGED FROM THE PRIOR STUDY. 2. SUBACUTE COMMINUTED FRACTURES OF THE LEFT SUPERIOR AND INFERIOR PUBIC RAMI. 3. NONDISPLACED SUBACUTE FRACTURE OF THE S1 VERTEBRA. 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 Following her admission to [facility] she clearly was not drinking enough for the dose of her furosemide. Her BUN/Cr have improved overnight with IV hydration. She is not quite at baseline (in the past she was best with a BUN of around 70, though recently this has been lower). She requires further acute hospital observation. We need to get the balance of hydration/diuretic therapy correct Right hip pain (Acute)Closed compression fracture of sacrum (Acute)Fracture of left inferior pubic ramus (Acute)Fracture of superior pubic ramus (Acute) Her pain followed several weeks after her fall. The pain is on the right side, despite the fractures in her pubic rami on the left. I discussed this with radiology. She has right and left sided sacral fractures as well as multiple pelvic fractures. There is some OA of the hips. I asked about a bone scan - this is not needed as everything is explained by the current radiology. I will therefor treat with pain management/PT. 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 I spoke to Rui Gustafson and Mian Ventura (). She requires ongoing acute hospital care until her hydration/CHF protocol is well controlled. They agree with the management plan.
[2017-02-09] MEDS ORDERED: Polyethylene Glycol 3350* 17 GM PACKET PO PRN (09:38)
--- NOTE | 2017-02-09 13:13 | PN ---
Progress Note - Progress Note Note: Phone call: Prisca Robles MD [phone] She is concerned at the disproportionate right hip pain and thinks she needs an MRI. I told her I discussed this with radiology this morning and that they didn' t think it was necessary. Both of us think it is clinically indicated and so I will order the test.
[2017-02-09] MEDS ORDERED: oxyCODONE TAB* 5 MG TAB PO PRN (16:05)
[2017-02-09] MEDS: Warfarin TAB(*) 3 MG PO SCH (17:24)
[2017-02-09] MEDS: Atorvastatin* 10 MG TAB PO SCH (17:24)
[2017-02-09] MEDS: traZODone TAB* 50 MG TAB PO SCH (20:57)
[2017-02-09] MEDS: cefTRIAXone VIAL(*) 1,000 MG in NS 0.9% 50 ML* 50 ML IVPB SCH (21:52)
[2017-02-10] MEDS: Morphine INJ* 2 MG/ML 1 ML SYRINGE IV PRN ×2 (06:46→23:31)
[2017-02-10 07:43] LABS: Hematocrit 27 % (35-47); Hemoglobin 8.9 g/dl (12.0-16.0); Mean Corpuscular HGB Conc 33 g/dl (31-36); Mean Corpuscular Hemoglobin 31 pg (27-31); Mean Corpuscular Volume 95 fL (80-97); Mean Platelet Volume 9 um3 (7.4-10.4); Red Blood Count 2.86 10^6/ul (4.0-5.4); Red Cell Distribution Width 14 % (10.5-15); White Blood Count 6.7 10^3/ul (3.5-10.8)
[2017-02-10 07:54] LABS: BUN/Creatinine Ratio 40.4 (8-20); C Reactive Protein 10.43 mg/L (< 5.00); Calcium 8.9 mg/dL (8.6-10.3); EGFR African American 41.4 (>60); EGFR Non-African American 32.2 (>60); Potassium 3.3 mmol/L (3.5-5.0)
[2017-02-10] MEDS: Insulin GLARGINE(*) 1 UNITS UNIT SUBCUT SCH (08:03)
[2017-02-10] MEDS: Insulin LISPRO* 1 UNITS UNIT SUBCUT SCH ×3 (08:03→16:56)
[2017-02-10] MEDS: Carvedilol TAB* 6.25 MG PO SCH ×2 (08:04→22:06)
[2017-02-10] MEDS: Sertraline* 100 MG TAB PO SCH (08:04)
[2017-02-10] MEDS: oxyCODONE TAB* 5 MG TAB PO PRN (12:13)
[2017-02-10] MEDS: Potassium Chlor TAB* 20 MEQ TAB.ER PO SCH (12:13)
--- NOTE | 2017-02-10 13:26 | RAD ---
CPT II Codes: 3570F INDICATION: Pelvic pain after a fall COMPARISON: CT abdomen pelvis dated February 08, 2017 TECHNIQUE: 20.67 mCi of Tc-99m HDP were injected IV. The whole body was scanned in anterior and posterior projections approximately 2 hours after the injection. FINDINGS: There is increased uptake overlying the left superior pubic ramus with uptake extending to the location of the pubic symphysis. There is uptake bilaterally at the sacrum and involving the S1 vertebral body. Chronic appearing and symmetric uptake is seen at the shoulders, knees and ankles which is more consistent with age-appropriate degenerative changes. The kidneys are normal in size and position and without evidence for obstructive uropathy. IMPRESSION: There is uptake at the S1 vertebral body, sacrum and left superior pubic ramus. This uptake corresponds to the pubic ramus fracture identified on the 6617 CT examination and is compatible with nondisplaced fracture of the S1 vertebral body and sacral insufficiency fracture.
[2017-02-10] MEDS: Atorvastatin* 10 MG TAB PO SCH (16:56)
[2017-02-10] MEDS: Warfarin TAB(*) 3 MG PO SCH (16:57)
[2017-02-10] MEDS: cefTRIAXone VIAL(*) 1,000 MG in NS 0.9% 50 ML* 50 ML IVPB SCH (22:06)
[2017-02-10] MEDS: traZODone TAB* 50 MG TAB PO SCH (22:06)
[2017-02-10] MEDS: Cyclobenzaprine TAB* 10 MG PO PRN (23:32)
[2017-02-11] MEDS: Morphine INJ* 2 MG/ML 1 ML SYRINGE IV PRN (04:56)
[2017-02-11 06:04] LABS: Hematocrit 29 % (35-47); Hemoglobin 9.3 g/dl (12.0-16.0); Mean Corpuscular HGB Conc 33 g/dl (31-36); Mean Corpuscular Hemoglobin 31 pg (27-31); Mean Corpuscular Volume 95 fL (80-97); Mean Platelet Volume 8 um3 (7.4-10.4); Red Blood Count 3.02 10^6/ul (4.0-5.4); Red Cell Distribution Width 14 % (10.5-15); White Blood Count 7.7 10^3/ul (3.5-10.8)
[2017-02-11 06:17] LABS: Albumin 3.1 g/dL (3.2-5.2); BUN/Creatinine Ratio 32.3 (8-20); C Reactive Protein 6.64 mg/L (< 5.00); Calcium 9.2 mg/dL (8.6-10.3); EGFR Non-African American 43.5 (>60); Globulin 3.2 g/dL (2-4); Magnesium 1.8 mg/dL (1.9-2.7); Phosphorus 2.1 mg/dL (2.5-5.0); Potassium 3.6 mmol/L (3.5-5.0); Total Bilirubin 0.3 mg/dL (0.2-1.0); Total Protein 6.3 g/dL (6.4-8.9)
[2017-02-11 08:39] VITALS: BP 131/70
[2017-02-11] MEDS: Sertraline* 100 MG TAB PO SCH (08:48)
[2017-02-11] MEDS: Potassium Chlor TAB* 20 MEQ TAB.ER PO SCH (08:48)
[2017-02-11] MEDS: Carvedilol TAB* 6.25 MG PO SCH (08:48)
[2017-02-11] MEDS: Insulin LISPRO* 1 UNITS UNIT SUBCUT SCH ×2 (08:49→12:44)
[2017-02-11] MEDS: Insulin GLARGINE(*) 1 UNITS UNIT SUBCUT SCH (08:50)
[2017-02-11] MEDS ORDERED: Furosemide TAB* 40 MG PO SCH (09:00)
--- NOTE | 2017-02-11 12:13 | DS ---
CC: Dr. Robles, [facility]; Dr. Rubens Cunningham DATE OF ADMISSION: 02/08/2017. DATE OF DISCHARGE: 02/11/2017. DISPOSITION: To [facility]. DISCHARGE DIAGNOSES: 1. Prerenal acute renal failure. 2. Pain due to osteoporotic fractures of the pelvis and sacrum. 3. Right hip pain likely due to trochanteric bursitis/trauma. 4. Combined systolic and diastolic cardiac failure. 5. Coronary artery disease. 6. History of bariatric surgery. 7. History of cerebrovascular disease. 8. Status post coronary artery bypass graft. 9. Type 2 diabetes mellitus. 10. Status post ICD/pacemaker. 11. Stage 3 chronic kidney disease. 12. Hyperlipidemia. 13. Chronic atrial fibrillation, on Warfarin. 14. Neuropathy. 15. Retinopathy. 16. Urinary tract infection. HISTORY OF PRESENT ILLNESS: Rui Gustafson is a 66-year-old woman admitted with resting right hip pain and abnormal labs due to acute renal failure. Please see the dictated admission note for details of the present illness, past medical history, family history, social and personal history, review of systems , and physical examination. LABORATORY DATA: On admission, CBC: White blood count 10, hemoglobin/ hematocrit 11/33, PLT 250k. CBC on discharge: WBC 7.7, H and H 9.3/29, MCV 95 , PLT 192k. INR's were 1.74, 1.78, 2.54. Chemistries on admission: Sodium 132 , potassium 2.8, chloride 88, BUN 98, creatinine 2.55. Rest of the comprehensive metabolic panel was abnormal for alk phos 207, CRP 20.75, TSH was normal at 2.27, lactic acid was 1.6, phosphorous was 2.1 on February 11. Chemistries on February 11 prior to discharge: Sodium 141, potassium 3.6, chloride 105, CO2 29, BUN/creatinine 40/1.24, glucose 166, phosphorous 2.1, magnesium 1.8 , alk phos 182, CRP 6.64 (down), total protein/albumin 6.3/3.1. Urinalysis on February 08: Yellow, cloudy, specific gravity of 1.008, nitrite positive, esterase 2+, WBC 1+, bacteria 1+. Microbiology: Urine culture grew out Klebsiella pneumoniae sensitive to all antibiotics tested except for Ampicillin. IMAGING STUDIES: 1. Abdomen/pelvis CT on 02/08/2017 showed mild bilateral hydronephrosis secondary to mild congenital bilateral ureteropelvic junction obstructions, unchanged from prior study. Subacute comminuted fractures of the left superior inferior pubic rami. Nondisplaced subacute fracture of the S1 vertebra. 2. Bone scan, nuclear medicine, confirmed the above noted fractures on CT and showed no other abnormalities. EKG on 02/08/2017 showed a sinus rhythm, PAC, probable inferior infarct, T- waves inverted. HOSPITAL COURSE: The patient was initially admitted and felt to have prerenal failure. It was felt that she had been taking significant doses of Lasix and not been drinking well. She was rehydrated. Her diuretics were initially held , then restarted. The right lateral hip pain was further investigated with a CAT scan and the bone scan. It did not show any additional abnormalities. It is felt likely she had trochanteric bursitis, maybe due to falling on the bursa when she fell one of the two times. It was felt that her other fractures seem to be gradually improving with regards to pain. She seemed quite depressed in the hospital. Her Sertraline will be increased. Her hypokalemia was repleted. Her Furosemide is being resumed. Her urinary tract infection was treated. Her blood sugars were well controlled. There was a thought that she should have an MRI of her hip, but this could not be done because of her pacemaker/ defibrillator. Her BUN and creatinine came down. At the time of discharge, she is not taking much pain medication. She wants to go back to the alf. At the time of discharge, her diet is consistent carbohydrate. She is ALLERGIC TO PENICILLIN. Her activity is up with assistance. MEDICATIONS: 1. Acetaminophen 650 every 4 hours as needed for pain. 2. Multivits one a day. 3. Lantus 8 units subcu daily. 4. Metolazone 2.5 mg every Tuesday. 5. Repaglinide 0.5 mg daily. 6. Sertraline 150 mg daily. 7. Trazodone 50 mg at bedtime. 8. Warfarin 2 mg p.o. three times a week, 1 mg p.o. four times a week. 9. Allopurinol 300 mg daily. 10. Atorvastatin 10 mg daily. 11. Candesartan 8 mg daily. 12. Carvedilol 6.25 mg twice a day. 13. Benadryl 50 mg p.o. at bedtime prn sleep. 14. Lasix 40 mg p.o. daily. 15. Melatonin 5 mg p.o. at bedtime. 16. MiraLax 17 gm p.o. daily. 17. Potassium Chloride 20 mEq p.o. daily. 18. Oxycodone 5 mg q.4 hour prn moderate pain and 10 mg p.o. q.4 hour prn severe pain. She is to be a full code. Laboratory orders are for Tuesday, February 14 for an INR, CBC, BMP. [id number] #: [id number] MTDD
[2017-02-11] MEDS: Cyclobenzaprine TAB* 10 MG PO PRN (12:45)
[2017-02-11] MEDS: oxyCODONE TAB* 5 MG TAB PO PRN (14:58)
== END 2017-02-11 15:00 | DRG 683 ==
LOC: ED 12:17 → MEDTELE 15:38 → MED 02-10 20:59
PROVIDERS: ADMIT Internal Medicine; ATTEND Internal Medicine
DX: N17.9 Acute kidney failure, unspecified (principal); I42.9 Cardiomyopathy, unspecified; E11.40 Type 2 diabetes mellitus with diabetic neuropathy, unspecified; I13.0 Hypertensive heart and chronic kidney disease with heart failure and stage 1 through stage 4 chronic kidney disease, or unspecified chronic kidney disease; E11.21 Type 2 diabetes mellitus with diabetic nephropathy; I50.42 Chronic combined systolic (congestive) and diastolic (congestive) heart failure; E86.0 Dehydration; I48.2 Chronic atrial fibrillation; E87.1 Hypo-osmolality and hyponatremia; N39.0 Urinary tract infection, site not specified; M80.08XA Age-related osteoporosis with current pathological fracture, vertebra(e), initial encounter for fracture; I25.10 Atherosclerotic heart disease of native coronary artery without angina pectoris; F32.9 Major depressive disorder, single episode, unspecified; R40.2412 Glasgow coma scale score 13-15, at arrival to emergency department; E11.22 Type 2 diabetes mellitus with diabetic chronic kidney disease; E78.5 Hyperlipidemia, unspecified; E11.319 Type 2 diabetes mellitus with unspecified diabetic retinopathy without macular edema; E87.6 Hypokalemia; E87.8 Other disorders of electrolyte and fluid balance, not elsewhere classified; N18.3 Chronic kidney disease, stage 3 (moderate); M70.61 Trochanteric bursitis, right hip; B96.1 Klebsiella pneumoniae [K. pneumoniae] as the cause of diseases classified elsewhere; N13.30 Unspecified hydronephrosis; W19.XXXA Unspecified fall, initial encounter; Y92.009 Unspecified place in unspecified non-institutional (private) residence as the place of occurrence of the external cause; Z79.4 Long term (current) use of insulin; Z88.0 Allergy status to penicillin; Z95.810 Presence of automatic (implantable) cardiac defibrillator; Z95.1 Presence of aortocoronary bypass graft; I25.2 Old myocardial infarction; Z95.2 Presence of prosthetic heart valve; Z87.442 Personal history of urinary calculi; Z98.42 Cataract extraction status, left eye; Z98.41 Cataract extraction status, right eye; Z98.84 Bariatric surgery status; Z82.49 Family history of ischemic heart disease and other diseases of the circulatory system; Z87.891 Personal history of nicotine dependence; Z86.73 Personal history of transient ischemic attack (TIA), and cerebral infarction without residual deficits; Z90.49 Acquired absence of other specified parts of digestive tract; Z83.3 Family history of diabetes mellitus; Z79.01 Long term (current) use of anticoagulants
CPT/HCPCS: 36415; 74176; 78306; 80048; 80053; 81003; 81015; 82570; 83605; 83735; 84100; 84300; 84443; 85025; 85610; 86140; 87077; 87086; 87186; 87641; 93005; A9270-GY; A9503; J0696; J2270; J3480

== ENCOUNTER 2017-08-31 14:45 | Inpatient (IN) | payer MEDICARE ==
--- NOTE | 2017-08-20 00:27 | HP ---
AMENDED REPORT NOW INCLUDES COSIGNER DESIGNATION - ESIGNED BEFORE ADJUSTMENT HISTORY AND PHYSICAL: DATE OF ADMISSION/SURGERY: 08/31/17 DATE OF HISTORY AND PHYSICAL: 08/18/17 SURGEON: Dr. Bee * (DICTATED BY JEREMIAS ESTEBAN) PROCEDURE: Right clavicle open reduction internal fixation, removal of hardware with iliac crest bone graft. CHIEF COMPLAINT: Right shoulder pain. HISTORY OF PRESENT ILLNESS: Rui has a complex medical picture and has a history of a previous clavicular fracture with a nonunion. She underwent open reduction internal fixation of that right shoulder with Dr. Bee on 06/29/17. It was noted on her postop visit at 2 weeks and 1 day. X-ray showed a complete failure of the internal fixations in the lateral aspect as well as medial aspect of the clavicle. At that point, she was not having pain; however, at her most recent followup on 06/29/17, she was having significant amount of pain and would like to undergo a revision of the internal fixation of her right clavicle. She is in very complex medical picture with numerous heart issues as well as diabetes. She has been cleared by Dr. Singleton cardiovascularly and Dr. 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 Her last A1C is unknown when her last A1c was; however, her fasting blood sugar this morning was 93 and she reports that she is very well controlled. She denies any history of DVT or PE and no history of problems with anesthesia. PAST MEDICAL HISTORY: Includes type 2 diabetes, insulin dependent; acute kidney failure; stroke x2 thought to happen in 2011; pelvis fracture and hip fracture in December 2016; mitral valve repair; 2 coronary artery bypass x2 vessels ; kidney stones; cardiomyopathy, unspecified, atherosclerosis of coronary artery bypass graft; mitral leaf abnormality; automatic implantable cardiac defibrillator in situ; primary cardiomyopathy. PAST SURGICAL HISTORY: Right ankle surgery in November 2012, gastric bypass Leah- en- Y, cardiac bypass, , lithotripsy, and cardiac surgery x2, clavicular open reduction, internal fixation in June 2017. MEDICATIONS: 1. Atorvastatin 10 mg 1 daily. 2. Allopurinol 300 mg 1 daily. 3. Iron 325 mg 1 daily. 4. Multivitamin 1 daily. 5. Coreg 6.25 mg half tab by mouth twice daily. 6. Lantus 100 units per mL 8 units daily. 7. Repaglinide 0.5 mg one 3 times a day. 8. Warfarin 1 mg 2 mg 6 days a week and 2.5 mg 1 day a week or as directed by Dr. Cunningham's office. 9. Furosemide 40 mg 120 mg, Tuesday, Tuesday, Tuesday and Tuesday, 40 mg Tuesday, and Tuesday. 10. Trazodone HCl 50 mg 1 daily at night as needed. 11. Sertraline HCl 100 mg 1 daily. 12. Morphine 15 mg 1 as needed. 13. Hydrocodone acetaminophen 5/325 one tab every 6 hours as needed. ALLERGIES: PENICILLIN and METFORMIN. FAMILY MEDICAL HISTORY: Mother with cardiac disease and diabetes. Father with strokes and diabetes. SOCIAL HISTORY: She is a nonsmoker. She does drink occasional alcohol. She denies any illicit drug use. REVIEW OF SYSTEMS: Positive for her presenting complaints as well as recent changes in vision. She is not able to walk a flight of stairs or C block. She does endorse kidney problems, history of stroke, depression, numbness and tingling in her feet bilaterally, diabetes and a history of anemia. She does deny any history of DVT, problems with anesthesia, no MRSA, hepatitis C or HIV. PHYSICAL EXAMINATION GENERAL: She is a well-nourished, well-developed, 66-year-old female appearing older than her stated age, in no acute distress. Alert and oriented. VITAL SIGNS: Height 62 inches, weight 162 pounds. Blood pressure 122/72, respirations 20, temperature 97, pain level 7, BMI 29.6. HEENT: Normocephalic, atraumatic. Pupils equally round and reactive to light. Extraocular movements intact. NECK: Supple. No palpable cervical lymph nodes. Thyroid is smooth and nontender. PULMONARY: Lungs are clear to auscultation bilaterally with no wheezes, rales, or rhonchi. CARDIAC: Regular rate with notable murmur and trace pedal edema bilaterally. 2 + radial pulses bilaterally. ABDOMEN: Soft and nontender. MUSCULOSKELETAL: Right upper extremity skin is intact. Incision is well healing. There is no erythema or warmth. She is able to forward flex her shoulder to about to 45, abduct to about 40 degrees. She is tender to palpation along the clavicle. STUDIES: X-rays from 07/14/17 demonstrate complete failure of the open reduction internal fixation of the lateral aspect as well as the medial aspect of the right clavicle. 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 PLAN: Rui is to undergo a right clavicle open reduction internal fixation, removal of hardware with iliac crest bone graft with Dr. Bee on 08/31/17. She will return to the clinic in 10 to 14 days postop for followup and suture removal. Pain medication will be sent for patient on day of surgery. She will use Lovenox for DVT prophylaxis. JEREMIAS ESTEBAN [id number]/[facility] #: [id number] LUZ MARIA
[2017-09-13] MEDS ORDERED: Buffered Lidocaine 0.9% SYRIN* 5 ML/SYR SYRINGE INTRADERM ONE (09:27)
[2017-09-14] MEDS ORDERED: Dexamethasone IV* 4 MG/ML 1 ML (4 MG) IV SLOW PU ONE (06:00)
[2017-09-14] MEDS ORDERED: Famotidine IV* 10 MG/ML 2 ML (20 mg) IV ONE (06:00)
[2017-09-14] MEDS ORDERED: Clindamycin 900 MG IVPREMIX(* 900 MG/50 ML SDV IV ONE (14:08)
[2017-09-14] MEDS ORDERED: Famotidine IV* 10 MG/ML 2 ML (20 mg) ONE (14:08)
[2017-09-14] MEDS ORDERED: Buffered Lidocaine 0.9% SYRIN* 5 ML/SYR SYRINGE ONE (14:08)
[2017-09-14] MEDS ORDERED: Dexamethasone IV* 4 MG/ML 1 ML (4 MG) ONE (14:09)
[2017-09-14] MEDS ORDERED: Midazolam* 1 MG/ML 2 ML VIAL (2 MG) ONE ×2 (14:54→15:43)
[2017-09-14] MEDS ORDERED: fentaNYL* 50 MCG/ML 2 ML VIAL (100 MCG VIAL) ONE ×6 (14:54→20:47)
[2017-09-14] MEDS ORDERED: KETAMINE HCL* 50 MG/ML 10 ML VIAL ONE (14:55)
[2017-09-14] MEDS ORDERED: Propofol* 10 MG/ML 20 ML BTL IV PUSH ONE (14:56)
[2017-09-14] MEDS ORDERED: Phenylephrine INJ* 10 MG/ML 1 ML VIAL (10 MG) ONE (14:56)
[2017-09-14] MEDS ORDERED: EPHEDrine (Pressors)* 50 MG/ML VIAL ONE (14:56)
[2017-09-14] MEDS ORDERED: Lidocaine 2% PF * 5 ML VIAL ONE (15:14)
[2017-09-14] MEDS ORDERED: HYDROmorphone INJ* 1 MG/ML CARPUJECT SYRINGE IV PRN (16:38)
[2017-09-14] MEDS ORDERED: Ondansetron INJ* 2 MG/ML VIAL IV PRN ×2 (16:38→18:49)
[2017-09-14] MEDS ORDERED: DiMENhydriNATE IV* 50 MG/ML VIAL IV PUSH PRN (16:38)
[2017-09-14] MEDS ORDERED: Naloxone* 0.4 MG/ML 1 ML VIAL IV PRN (16:38)
[2017-09-14] MEDS ORDERED: Metoprolol Tartrate IV* 1 MG/ML 5 ML VIAL ONE (17:09)
[2017-09-14] MEDS ORDERED: Bupivacaine 0.25% SDV* 30 ML ONE (18:14)
[2017-09-14] MEDS ORDERED: diPHENhydraMINE IV* 50 MG/ML 1 ml VIAL (BENADRYL) IV PRN (18:49)
[2017-09-14] MEDS ORDERED: oxyCODONE/Acetamin 5/325 MG* TAB PO PRN (18:49)
[2017-09-14] MEDS ORDERED: Morphine INJ* 2 MG/ML 1 ML SYRINGE (TWO MG - NEW SYRINGE VERSION) IV PRN (18:49)
[2017-09-14] MEDS ORDERED: Ondansetron TAB* 4 MG PO PRN (18:49)
[2017-09-14] MEDS ORDERED: Magnesium Hydroxide LIQ* 30 ML UDC PO PRN (18:49)
[2017-09-14] MEDS ORDERED: oxyCODONE TAB* 5 MG TAB PO PRN (18:49)
[2017-09-14] MEDS ORDERED: Morphine TAB Extended Release (*) 15 MG TAB.ER PO PRN (19:00)
[2017-09-14] MEDS ORDERED: Morphine ORAL.SOLN 10 mg* 2 MG/ML UDC 5 ml PO PRN (19:00)
[2017-09-14] MEDS: fentaNYL* 50 MCG/ML 2 ML VIAL (100 MCG VIAL) IV PRN ×4 (19:26→20:51)
[2017-09-14 20:34] LABS: INR 0.98 (0.77-1.02)
--- NOTE | 2017-09-14 20:41 | RAD ---
INDICATION: Right clavicular fracture-ORIF COMPARISON: July 14, 2017 TECHNIQUE: AP views were obtained. FINDINGS: There is ORIF of a right clavicular fracture. There is shinto the AC joint. There is advanced osteoarthritis about the glenohumeral joint with cystic change and deformity of the humeral head. IMPRESSION: ORIF CLAVICULAR FRACTURE.
--- NOTE | 2017-09-14 20:41 | RAD ---
INDICATION: Right clavicular fracture. COMPARISON: Chest x-ray June 29, 2017 TECHNIQUE: An AP portable view obtained at 1946 hours is submitted. FINDINGS: Bones/Soft Tissues: There are no acute bony findings. There is ORIF of a right clavicular fracture. There are surgical yee projecting over the right upper chest. There is sternotomy. There is left-sided cardiac pacemaker/defibrillator Cardiomediastinal: The cardiomediastinal silhouette is normal. Lungs: There are no infiltrates. Pleura: There are no pleural effusions. Other: None IMPRESSION: NO ACTIVE DISEASE.
--- NOTE | 2017-09-14 20:42 | RAD ---
INDICATION: Clavicular fracture COMPARISON: None FINDINGS: 14.7 seconds of fluoroscopy were provided for the orthopedics department. Fluoroscopic spot imaging of the right clavicle were obtained for operative control. CPT II Codes: 6045F (fluoro time doc)
[2017-09-14] MEDS ORDERED: MELATONIN PO SCH (21:00)
[2017-09-14] MEDS ORDERED: traZODone TAB* 50 MG TAB PO SCH (21:00)
[2017-09-14] MEDS: oxyCODONE/Acetamin 5/325 MG* TAB PO PRN (23:22)
[2017-09-14] MEDS: Carvedilol TAB* 3.125 MG PO SCH (23:58)
[2017-09-14] MEDS: Docusate CAP* 100 MG PO SCH (23:58)
[2017-09-15] MEDS ORDERED: Insulin GLARGINE(*) 1 UNITS UNIT SUBCUT SCH (00:15)
[2017-09-15] MEDS: Clindamycin 600 MG IVPREMIX(* 600 MG/50 ML SDV IV SCH ×2 (00:18→07:52)
[2017-09-15] MEDS: Magnesium Hydroxide LIQ* 30 ML UDC PO SCH ×2 (01:55→08:59)
[2017-09-15 07:35] LABS: Hematocrit 23 % (35-47); Hemoglobin 7.7 g/dl (12.0-16.0); Mean Platelet Volume 9 um3 (7.4-10.4); Platelet Count 158 10^3/ul (150-450)
[2017-09-15 07:44] LABS: EGFR Non-African American 30.3 (>60)
[2017-09-15] MEDS: oxyCODONE/Acetamin 5/325 MG* TAB PO PRN ×2 (07:51→11:42)
[2017-09-15] MEDS: Repaglinide TAB* 0.5 MG PO SCH ×2 (07:53→11:42)
[2017-09-15 08:08] VITALS: BP 130/63
--- NOTE | 2017-09-15 08:14 | PN ---
Subjective - Subjective Reason for Note: Consultation Note History: Internal medicine consultation. I am Rui Gustafson' primary care physician. She underwent ORIF right clavicle with a graft from right iliac crest and removal of hardware. I was called last night as she had a tachycardia. I thought this was due to pain and this resolved with adequate analgesia. This morning she is feeling well. She has had no chest pain, dyspnea, palpitations. She is not coughing. She has pain in her right graft site. She has walked to the toilet. Active Problems: Active Problems Anemia (Acute) D64.9 DVT prophylaxis (Acute) [id number] Lovenox bridging back to Coumadin Full code status (Acute) Z78.9 H/O mitral valve repair (Acute) Z98.890 History of CVA (cerebrovascular accident) (Acute) Z86.73 Chronically anticoagulated with Coumadin Bridging with Lovenox per Dr Cunningham recommendations Ischemic cardiomyopathy (Acute) I25.5 EF 20-25% Chronic No acute decompensation Right hip pain (Acute) M25.551 status post ORIF clavicle (Acute) POD #1 Asx, medically appropriate for discharge Current Medications: Current Medications Allopurinol (Zyloprim Tab*) 300 mg PO QPM МАРИНА Atorvastatin Calcium (Lipitor*) 10 mg PO QPM МАРИНА Carvedilol (Coreg Tab*) 3.125 mg PO BID [facility] Last Admin: 09/14/17 23:58 Dose: 3.125 mg Diphenhydramine HCl (Benadryl Iv*) 25 mg IV Q6H PRN PRN Reason: itching Docusate Sodium (Colace Cap*) 100 mg PO BID [facility] Last Admin: 09/14/17 23:58 Dose: 100 mg Enoxaparin Sodium (Lovenox(*)) 30 mg SUBCUT Q24H [facility] Ferrous Gluconate (Fergon Tab*) 324 mg PO 1600 МАРИНА Furosemide (Lasix Tab*) 40 mg PO SUTUTH МАРИНА Furosemide (Lasix Tab*) 120 mg PO MOWEFRSA МАРИНА Clindamycin HCl/Dextrose (Cleocin 600 Mg Ivpremix(*) Sdv) 600 mg in 50 mls @ 100 mls/hr IV Q8H [facility] Stop: 09/15/17 15:59 Last Admin: 09/15/17 07:52 Dose: 100 mls/hr Lactated Ringer's (Lactated Ringers 1000 Ml Bag*) 1,000 mls @ 100 mls/hr IV PER RATE [facility] Last Admin: 09/14/17 23:25 Dose: 100 mls/hr Insulin Glargine (Lantus(*)) 8 units SUBCUT 1600 [facility] Last Admin: 09/15/17 00:18 Dose: 8 unit Magnesium Hydroxide (Milk Of Magnesia Liq*) 30 ml PO BID [facility] Last Admin: 09/15/17 01:55 Dose: Not Given Magnesium Hydroxide (Milk Of Magnesia Liq*) 30 ml PO Q6H PRN PRN Reason: constipation Morphine Sulfate (Morphine Inj (Syringe)*) 2 mg IV Q2H PRN PRN Reason: PAIN - BREAKTHROUGH Morphine Sulfate (Morphine Oral.Soln 10 Mg*) 15 mg PO Q4H PRN PRN Reason: PAIN Morphine Sulfate (Ms Contin(*)) 15 mg PO Q6H PRN PRN Reason: PAIN Non-Formulary Medication (Melatonin [Melatonin]) 80 mg PO BEDTIME [facility] Last Admin: 09/15/17 01:55 Dose: Not Given Ondansetron HCl (Zofran Inj*) 4 mg IV Q6H PRN PRN Reason: nausea Ondansetron HCl (Zofran Tab*) 4 mg PO Q6H PRN PRN Reason: NAUSEA Oxycodone HCl (Roxycodone Tab*) 10 mg PO Q4H PRN PRN Reason: PAIN - SEVERE Last Admin: 09/15/17 02:45 Dose: 10 mg Oxycodone/Acetaminophen (Percocet 5/325 Tab*) 2 tab PO Q4H PRN PRN Reason: PAIN - MODERATE Last Admin: 09/15/17 07:51 Dose: 2 tab Oxycodone/Acetaminophen (Percocet 5/325 Tab*) 1 tab PO Q4H PRN PRN Reason: PAIN - MILD Repaglinide (Prandin Tab*) 0.5 mg PO TID [facility] Last Admin: 09/15/17 07:53 Dose: 0.5 mg Sertraline HCl (Zoloft*) 100 mg PO 1600 [facility] Trazodone HCl (Desyrel Tab*) 50 mg PO BEDTIME [facility] Last Admin: 09/14/17 23:58 Dose: 50 mg Valsartan (Diovan Tab*) 40 mg PO QPM МАРИНА Warfarin Sodium (Coumadin Tab(*)) 2 mg PO 1700 МАРИНА PRN Reason: Protocol Home Medications: Home Medications Medication Instructions Recorded Confirmed Type Allopurinol TAB* [Zyloprim 300 MG 300 mg PO QPM 12/11/12 09/14/17 History TAB*] Carvedilol TAB* [Coreg TAB*] 0.5 tab PO BID 12/11/12 09/14/17 History Atorvastatin* [Lipitor 10 MG*] 10 mg PO QPM 02/12/13 09/14/17 History Candesartan Cilexetil [Atacand] 8 mg PO QPM 02/08/17 09/14/17 History Furosemide TAB* [Lasix TAB*] 40 mg PO SUTUTH 02/08/17 09/14/17 History Furosemide TAB* [Lasix TAB*] 120 mg PO MOWEFRSA 02/08/17 09/14/17 History Insulin GLARGINE(*) [Lantus(*)] 8 units SUBCUT 1600 02/08/17 09/14/17 History Melatonin 80 mg PO BEDTIME 02/08/17 09/14/17 History Morphine TAB (NF) 15 mg PO Q4H PRN 02/08/17 09/14/17 History Multivitamins/Minerals TAB* 1 tab PO 1600 02/08/17 09/14/17 History [Theragran/minerals TAB*] Repaglinide TAB* [Prandin TAB*] 0.5 mg PO TID 02/08/17 09/14/17 History Sertraline* [Zoloft*] 100 mg PO 1600 02/08/17 09/14/17 History traZODone TAB* [Desyrel TAB*] 50 - 75 mg PO BEDTIME 02/08/17 09/14/17 History Ferrous Gluconate [Fergon] 27 mg PO 1600 06/22/17 09/14/17 History HYDROcodone/ACETAMIN 5-325 MG* 1 tab PO Q6H PRN 08/18/17 09/14/17 History [[place] 5-325 TAB*] Morphine Sulfate [Morphine Sulfate 15 mg PO Q6H PRN 08/18/17 09/14/17 History Cr] Warfarin TAB(*) [Coumadin TAB(*)] 2 mg PO 1700 08/18/17 09/14/17 History Allergies: Allergies Allergy/AdvReac Type Severity Reaction Status Date / Time Penicillins [PCN] Allergy Unknown Rash And Verified 09/14/17 14:21 Itching PACEMAKER/ICS-NOT MRI Allergy NOT MRI Uncoded 09/14/17 14:21 COMPATIBLE* COMPATIBLE Objective - Vital Signs Vital Signs: Vital Signs 09/14/17 09/14/17 09/14/17 14:29 18:50 18:55 Temperature 98.1 F 97.5 F Pulse Rate 79 109 106 Respiratory 16 13 20 Rate Blood Pressure 141/85 131/83 123/80 (mmHg) O2 Sat by Pulse 100 100 Oximetry 09/14/17 09/14/17 09/14/17 19:00 19:05 19:15 Temperature Pulse Rate 105 104 104 Respiratory 20 20 18 Rate Blood Pressure 122/83 132/80 129/80 (mmHg) O2 Sat by Pulse 100 100 100 Oximetry 09/14/17 09/14/17 09/14/17 19:26 19:30 19:36 Temperature Pulse Rate 103 Respiratory 19 18 21 Rate Blood Pressure 122/76 (mmHg) O2 Sat by Pulse 100 Oximetry 09/14/17 09/14/17 09/14/17 19:45 20:00 20:15 Temperature Pulse Rate 102 101 106 Respiratory 19 19 17 Rate Blood Pressure 120/77 103/90 117/77 (mmHg) O2 Sat by Pulse 100 100 100 Oximetry 09/14/17 09/14/17 09/14/17 20:30 20:45 20:47 Temperature Pulse Rate 100 104 Respiratory 19 17 20 Rate Blood Pressure 113/49 118/73 (mmHg) O2 Sat by Pulse 100 100 Oximetry 09/14/17 09/14/17 09/14/17 20:51 21:32 22:00 Temperature 97.7 F Pulse Rate 116 Respiratory 21 18 18 Rate Blood Pressure 114/74 (mmHg) O2 Sat by Pulse 100 Oximetry 09/14/17 09/14/17 09/14/17 22:58 23:22 23:34 Temperature 98.1 F 97.7 F Pulse Rate 124 127 Respiratory 16 14 16 Rate Blood Pressure 123/58 112/56 (mmHg) O2 Sat by Pulse 99 98 Oximetry 09/15/17 09/15/17 09/15/17 01:33 02:45 03:34 Temperature 98.2 F 98.0 F Pulse Rate 93 92 Respiratory 16 16 14 Rate Blood Pressure 106/57 119/65 (mmHg) O2 Sat by Pulse 95 95 Oximetry 09/15/17 09/15/17 05:34 07:51 Temperature 97.5 F Pulse Rate 87 Respiratory 14 16 Rate Blood Pressure 130/63 (mmHg) O2 Sat by Pulse 97 Oximetry - Intake and Output Intake and Output: Intake & Output 09/12/17 09/13/17 09/14/17 09/15/17 11:59 11:59 11:59 11:59 Intake Total 1600 Output Total 100 Balance 1500 Weight 156 lb Intake: IV Fluids 1600 LR 1600 Oral 0 Output: Urine 100 ADLs: Meal Record Start: 09/14/17 20: 59 Freq: Status: Active Protocol: Created 09/14/17 20:59 [id number] (Rec: 09/14/17 20:59 [id number]) Intake and Output Start: 09/14/17 18: 49 Freq: 06,14,2200 Status: Active Protocol: Created 09/14/17 19:00 [id number] (Rec: 09/14/17 19:00 [id number]) Intake and Output Start: 09/14/17 20: 59 Freq: DAILY@0600,1400,2200 Status: Active Protocol: Created 09/14/17 20:59 [id number] (Rec: 09/14/17 20:59 [id number]) Document 09/15/17 04:52 [id number] (Rec: 09/15/17 04:53 [id number]) - Physical Exam General: No Cyanosis, Yes Anemia, No Jaundice, No Clubbing Lungs and Chest: Yes: Chest Expansion Full, Chest Expansion Symetrica, Percussion Note Resonant, Vessicular Breath Sounds. No: Crackles, Wheezes Heart Rate and Rhythm: Regular JVP: Not Elevated Additional Cardiovascular: Yes: Normal Heart Sounds. No: Heart Murmur, Pedal Edema Abdominal Exam: Yes: Soft, Bowel Sounds Present. No: Distention, Abdominal Tenderness Results - Results Lab Results: Laboratory Results - last 24 hr 09/14/17 09/14/17 09/15/17 14:43 20:18 07:17 Hgb 7.7 L Hct 23 L Plt Count 158 MPV 9 INR (Anticoag Therapy) 0.98 Sodium Potassium Chloride Carbon Dioxide Anion Gap BUN Creatinine Est GFR ( Amer) Est GFR (Non-Af Amer) BUN/Creatinine Ratio Glucose POC Glucose (mg/dL) 178 H Calcium 09/15/17 07:17 Hgb Hct Plt Count MPV INR (Anticoag Therapy) Sodium 141 Potassium 4.3 Chloride 104 Carbon Dioxide 30 Anion Gap 7 BUN 41 H Creatinine 1.70 H Est GFR ( Amer) 38.9 Est GFR (Non-Af Amer) 30.3 BUN/Creatinine Ratio 24.1 H Glucose 242 H POC Glucose (mg/dL) Calcium 9.2 Assessment - Problem List Assessment: Patient Problems Anemia (Acute) DVT prophylaxis (Acute) Full code status (Acute) H/O mitral valve repair (Acute) History of CVA (cerebrovascular accident) (Acute) Ischemic cardiomyopathy (Acute) Right hip pain (Acute) status post ORIF clavicle (Acute) Fracture of left inferior pubic ramus (Acute) Prerenal acute renal failure (Acute) Sinus pause (Acute) 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 She has most pain from the graft site Anemia (Acute) Her hemoglobin has dropped to 7.7. I offered her a transfusion , she preferred not to have this. 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 She is stable. I have stopped her IVF to prevent volume overload. I think her glucose levels will recover. She will take qod iron sulfate as an outpatient. I spoke to the patient and her significant other Mian Ventura by phone and they agree with management plan.
[2017-09-15] MEDS: Docusate CAP* 100 MG PO SCH (08:58)
[2017-09-15] MEDS: Carvedilol TAB* 3.125 MG PO SCH (08:58)
[2017-09-15] MEDS ORDERED: Furosemide TAB* 40 MG PO SCH (09:00)
--- NOTE | 2017-09-15 11:40 | PN ---
Progress Note - Progress Note Date of Service: 09/15/17 SOAP: Subjective: seen at 6:30 am Pt seen today. Feels good. Has been to the bathroom already. Denies numbness and tingling. Better than last time Objective: Temp Pulse Resp BP Pulse Ox 97.5 F 87 16 130/63 97 09/15/17 07:51 09/15/17 07:51 09/15/17 07:51 09/15/17 07:51 09/15/17 07:[address] RUE, RLE: SILT grossly distally. able to flex/ext digits/ foot. brisk cap refill Laboratory Results - last 24 hr 09/14/17 09/14/17 09/15/17 14:43 20:18 07:17 Hgb 7.7 L Hct 23 L Plt Count 158 MPV 9 INR (Anticoag Therapy) 0.98 Sodium Potassium Chloride Carbon Dioxide Anion Gap BUN Creatinine Est GFR ( Amer) Est GFR (Non-Af Amer) BUN/Creatinine Ratio Glucose POC Glucose (mg/dL) 178 H Calcium 09/15/17 07:17 Hgb Hct Plt Count MPV INR (Anticoag Therapy) Sodium 141 Potassium 4.3 Chloride 104 Carbon Dioxide 30 Anion Gap 7 BUN 41 H Creatinine 1.70 H Est GFR ( Amer) 38.9 Est GFR (Non-Af Amer) 30.3 BUN/Creatinine Ratio 24.1 H Glucose 242 H POC Glucose (mg/dL) Calcium 9.2 Xrays acceptable, Chest xray no pneumo Assessment: POD#1 from revision ORIF for clavicle malunion/nonunion with R hip ICBG Plan: WBAT on right hip NWB Right arm; elbow/hand/wrist rom allowed. post op abx discharge when medically stable f/u 2 weeks
[2017-09-15 11:59] LABS: Urine Appearance Cloudy; Urine Blood Negative (Negative); Urine Color Yellow; Urine Ketones Negative (Negative); Urine Protein Negative (Negative); Urine Specific Gravity 1.014 (1.010-1.030); Urine Urobilinogen Negative (Negative)
[2017-09-15] MEDS ORDERED: Ferrous Gluconate TAB* 324 MG TAB PO SCH (16:00)
[2017-09-15] MEDS ORDERED: Sertraline* 100 MG TAB PO SCH (16:00)
[2017-09-15] MEDS ORDERED: Warfarin TAB(*) 2 MG PO SCH (17:00)
[2017-09-15] MEDS ORDERED: Allopurinol TAB* 300 MG PO SCH (18:00)
[2017-09-15] MEDS ORDERED: Valsartan TAB* 40 MG PO SCH (18:00)
[2017-09-15] MEDS ORDERED: Atorvastatin* 10 MG TAB PO SCH (18:00)
[2017-09-15] MEDS ORDERED: Enoxaparin(*) 30 MG/0.3 ML SYR SUBCUT SCH (19:00)
[2017-09-16] MEDS ORDERED: Furosemide TAB* 40 MG PO SCH (09:00)
--- NOTE | 2017-09-17 12:31 | DS ---
AMENDED REPORT NOW INCLUDES COSIGNER DESIGNATION DISCHARGE SUMMARY: DATE OF ADMISSION: 09/14/17 DATE OF DISCHARGE: 09/15/17 DATE OF SURGERY: 09/14/17 PROVIDER: Dr. Gabriel Bee.* (DICTATED BY JEREMIAS FIELDS) PROCEDURE: Right clavicle open reduction and internal fixation, removal of hardware with iliac crest bone graft. HISTORY: Rui has a complex medical picture and has a history of a previous clavicular fracture with a nonunion. She underwent an ORIF of the right shoulder with Dr. Bee on 06/29/17. Her x-rays showed a complete failure of the internal fixation on the lateral aspect as well as the medial aspect of the clavicle. She was having pain and elected to undergo revision of the internal fixation of her right clavicle. HOSPITAL COURSE: On 09/14/17, patient underwent an ORIF of the right clavicle with removal of hardware and iliac crest bone graft without complication. She was transferred to the PACU where she recovered briefly, then to the short-stay surgical unit in stable condition. Postop day #1, hemoglobin was 7.7, hematocrit was 23. She was seen by her primary physician Dr. Cunningham. She did have an episode of tachycardia overnight from operative day to postop day #1, which was likely due to pain and resolved with adequate analgesia. The patient was offered a blood transfusion due to a decreased hemoglobin and hematocrit, but patient did not feel that she needed one at this time. The patient was deemed to be medically stable to discharge home. Her dressing was clean, dry and intact. Sensation to light touch was intact distally. She was able to flex and extend her digits. Brisk capillary refill distally. DISCHARGE MEDICATIONS: 1. Carvedilol 6.25 mg one-half tab b.i.d. 2. Allopurinol 300 mg p.o. q.p.m. 3. Atorvastatin 10 mg p.o. q.p.m. 4. Morphine 15 mg p.o. q. 4 hours p.r.n. 5. Melatonin __ mg p.o. at bedtime. 6. Furosemide 40 mg p.o. . 7. Furosemide 120 mg p.o. . 8. Atacand 8 mg p.o. q.p.m. 9. Trazodone between 50 and 75 mg p.o. bedtime. 10. Zoloft 100 mg p.o. daily. 11. Prandin 0.5 mg p.o. t.i.d. 12. Lantus 8 units subcu daily. 13. Multivitamin. 14. Ferrous gluconate 27 mg p.o. at 1600. 15. Warfarin 2 mg tab as directed. 16. Percocet 5/325 mg 1 to 2 tabs p.o. every 4 to 6 hours p.r.n., max daily dose of 8. 17. Docusate 100 mg p.o. b.i.d. p.r.n. DISCHARGE PLAN: The patient is not to move her right shoulder whatsoever. She is nonweightbearing of right upper extremity. No active or passive range of motion of the right shoulder. She may continue to use elbow, wrist and hand, but no weightbearing of the right upper extremity. She may shower after , but no submerging the wound. Call orthopedic office for increased drainage , redness, increased pain or fever or go to the emergency room if shortness of breath or chest pain. Regular diet as tolerated. Stool softener as needed for constipation. Call the office if no bowel motion within 48 hours. Pain control with Percocet 5/325 one to two tabs every 4 to 6 hours, max 8 per day. JEREMIAS FIELDS [id number]/[facility] #: [id number] LUZ MARIA
--- NOTE | 2017-09-21 22:52 | OP ---
CC: PCP, Rubens Cunningham MD * DATE OF OPERATION: 09/14/17 - ROOM #351 DATE OF : 54 SURGEON: Gabriel Bee MD. MANAGER CASH: JEREMIAS Levin; JEREMIAS Faria; and Gustavo Wise MS- III. ANESTHESIOLOGIST: Dr. Hunter. ANESTHESIA: General with an art-line as well. PRE-OP DIAGNOSIS: Right clavicle malunion, nonunion with failed hardware. POST-OP DIAGNOSIS: Right clavicle malunion, nonunion with failed hardware. OPERATIVE PROCEDURE: Right clavicle revision, open reduction internal fixation with autogenous iliac crest bone graft harvested from the right side as well as removal of hardware. IMPLANTS USED: Acumed lateral clavicle plate with the appropriate length screws. Removed hardware was a Synthes clavicle plate with all 6 screws. COMPLICATIONS: None. ESTIMATED BLOOD LOSS: About 150 cc. INDICATIONS: Rui Gustafson is a 66-year-old female who had a clavicle nonunion , malunion for over a year and a half, who underwent open reduction internal fixation in June that then subsequently failed. She was having persistent pain and issues. Risks and benefits of surgery versus nonoperative treatment were discussed at length. After appropriate optimization by her primary care doctors, she was optimized for surgery. Risks and benefits were discussed at length and included, but are not limited to bleeding, infection, damage to nerves, vessels, surrounding structures, wound nonhealing, persistent pain, need for further surgery, scarring, stiffness, incomplete relief of symptoms, and risks of anesthesia. She has elected to proceed. DESCRIPTION OF PROCEDURE: The patient was greeted in the preoperative area by the attending surgeon. Correct extremity was marked, consent was confirmed. The patient was brought back to the operating suite where she was placed in supine position on the operating table. She then underwent general anesthesia with endotracheal intubation. She had an art-line that was placed; prior to that she also had a pacemaker device, which was turned off. Once she was ready from an anesthesia standpoint, she was placed in a lazy beach chair position. X -ray was brought in to make sure that she could be x-rayed through the bed. The right shoulder and the right anterior iliac crest were prepped and draped in usual sterile fashion beginning with chlorhexidine soap, scrub, and alcohol wipe, and a final prep with ChloraPrep. After appropriate surgical pause indicating side, site, procedure, and administration of antibiotics, the right hip was first addressed. An incision was made posterior to the ASIS about 2 cm posterior about a 4-cm incision. Soft tissues were carefully dissected to expose the fascia, which was sharply incised on bone in line with the fibers. These were kept for later closure. Once the bone was identified, it was skeletonized anteriorly and posteriorly. After the bone was exposed, about a 2 cm window was exposed of bone and a half- inch osteotome was then used to make 2 cuts perpendicular to the bone and then 1 longitudinally connected. This allowed for flaps to open. Once this was done , the curettes and rongeurs were used to remove approximately 10 cc of iliac crest bone and bone marrow aspirate as well. After this was done, the wounds were copiously irrigated. The flaps were then closed. The fascia was closed over the flaps with 0 Vicryl in interrupted fashion for watertight seal. The subcutaneous tissues were closed with 2-0 Vicryl and the skin with 3-0 Monocryl. The wound was then covered to be checked again at the end of the case and then potentially Dermabonded. While the housing assistant property manager was closing the hip wound, the surgeon went to the right clavicle. A second pause was done indicating side, site, procedure, and administration of antibiotics. The previous incision was then incised using 15-blade. The soft tissues were carefully dissected and the plate was identified. The electrocautery device was used to help identify the plate, which was visible and clearly expelled from the bone. The screws were not in bone and were easily removed. The plate was then removed in its entirety. There was no remaining hardware. The 2 ends of the fracture were then visualized and prepared. The soft tissues were carefully removed to allow for mobilization of the clavicle, which was then provisionally reduced with a clamp. X- ray was taken to make sure that it was lined up. Once this was done, appropriate plate length was chosen and then provisionally secured to position medially with a small retention spike and then laterally was secured with a K-wire. Once this was done, x-rays were used to confirm placement and alignment to make sure it was not too laterally placed. At this point, beginning medially, nonlocking screws were placed medially and then a nonlocking screw placed laterally. Once the locking screws were placed, the nonlocking screws were placed laterally. The nonlocking screws did have moderate to excellent bite through most of the screws. Approximately 8 distal locking screws were placed using the Acumed plate of the appropriate length. Once the lateral screws were all filled, the medial screws were filled with many locking screws as could be obtained. The wounds were copiously irrigated with sterile saline. Images were obtained, which did show reduction of the clavicle. This appeared to be a solid construct. After this was done, the wounds were copiously irrigated. The autologous bone grafted bone marrow aspirate was then placed at the level of the fracture site. Please note that the 2 fracture ends did have bony contact. The scar/fascial layer was then closed with 0 Vicryl in an interrupted fashion. The subcutaneous tissues were closed in layers with 2-0 Vicryl and yee. The wound was injected with 0.25 % Marcaine plain. Sterile dressings were applied proximally. The hip wound was examined and found to have no drainage or leakage. The wound was sealed with Dermabond and Adaptic and a small sterile dressing was then placed. She was awoken from anesthesia, placed in a regular sling, and she was given a Cryo/ Cuff. She was transitioned to the PACU in stable condition. The AICD was turned back on. POSTOPERATIVE PLAN: She is admitted for at least 24 hours, postoperative antibiotics and close monitoring. She will be nonweightbearing. She will be allowed only elbow, hand and wrist range of motion. She will be allowed no lifting, pushing, or pulling. I will see her back in 10 to 14 days to make sure there are no changes to her plate. DVT prophylaxis is considered, but deferred. While she is inpatient she will be given heparin or Lovenox, but she will not require this on discharge. I will see the patient back in 10 to 14 days. [id number]/[facility] #: [id number] [facility] HOSPITALLyubov
== END 2017-09-15 13:30 | disposition home or self-care (01) | DRG 497 ==
LOC: AA 09-14 13:44 → SSU 09-14 21:25
PROVIDERS: ADMIT Orthopaedic Surgery; ATTEND Orthopaedic Surgery
PROC: 0PS904Z Reposition Right Clavicle with Internal Fixation Device, Open Approach (ICD-10-PCS; 2017-09-14)
PROC: 0PU907Z Supplement Right Clavicle with Autologous Tissue Substitute, Open Approach (ICD-10-PCS; 2017-09-14)
PROC: 0QB20ZZ Excision of Right Pelvic Bone, Open Approach (ICD-10-PCS; 2017-09-14)
PROC: 0PP904Z Removal of Internal Fixation Device from Right Clavicle, Open Approach (ICD-10-PCS; principal; 2017-09-14 15:00)
DX: S42.021K Displaced fracture of shaft of right clavicle, subsequent encounter for fracture with nonunion (principal); E11.22 Type 2 diabetes mellitus with diabetic chronic kidney disease; I50.9 Heart failure, unspecified; N18.3 Chronic kidney disease, stage 3 (moderate); M10.9 Gout, unspecified; Z87.891 Personal history of nicotine dependence; I25.10 Atherosclerotic heart disease of native coronary artery without angina pectoris; Z86.73 Personal history of transient ischemic attack (TIA), and cerebral infarction without residual deficits; I25.2 Old myocardial infarction; I25.5 Ischemic cardiomyopathy; Z95.2 Presence of prosthetic heart valve; Z98.49 Cataract extraction status, unspecified eye; Z98.84 Bariatric surgery status; Z82.49 Family history of ischemic heart disease and other diseases of the circulatory system; Z83.3 Family history of diabetes mellitus; Z82.3 Family history of stroke; Z88.0 Allergy status to penicillin; Z88.8 Allergy status to other drugs, medicaments and biological substances; I25.9 Chronic ischemic heart disease, unspecified; Z95.1 Presence of aortocoronary bypass graft; Z87.442 Personal history of urinary calculi; R00.0 Tachycardia, unspecified; I51.89 Other ill-defined heart diseases; Z79.4 Long term (current) use of insulin; Z79.01 Long term (current) use of anticoagulants; Z95.810 Presence of automatic (implantable) cardiac defibrillator; D64.9 Anemia, unspecified
CPT/HCPCS: 36415; 71045; 76001; 80048; 81003; 81015; 85014; 85018; 85049; 85610; 87086; A9270-GY; C1713; C1771; J1100; J2250; J2704; J3010; J3490

== ENCOUNTER 2019-06-20 19:07 | Emergency (ER) | payer MEDICARE ==
--- NOTE | 2019-06-20 20:14 | ED ---
HPI Diabetic - HPI Summary HPI Summary: 68-year-old female presents with high sugars for the past couple days. She states that her sugars have been up to 230. States sugars are normally in the 100s. She states she's been feeling weak. Has had a decrease in appetite but does not feel dehydrated. She states that have been changing her Coumadin dosing as her INR has been too high. She hasn't taken 2 doses of Coumadin per her primary. She admits to fatigue. She's had a cough. No urinary symptoms. No chest pain or shortness breath. No headache or dizziness. No nausea vomiting. No abdominal pain. No diarrhea. No other symptoms. - History Of Current Complaint Chief Complaint: EDDiabeticProb Time Seen by Provider: 06/20/19 19:55 - Allergies/Home Medications Allergies/Adverse Reactions: Allergies Allergy/AdvReac Type Severity Reaction Status Date / Time Penicillins Allergy Rash Verified 06/20/19 19:19 Home Medications: Home Medications Candesartan Cilexetil [Atacand] 8 mg PO QPM 06/20/19 [History Confirmed 06/20/19 ] Carvedilol TAB* [Coreg TAB*] 3.125 mg PO BID 06/20/19 [History Confirmed ] Melatonin 80 mg PO BEDTIME 06/20/19 [History Confirmed 06/20/19] Sertraline* [Zoloft*] 100 mg PO DAILY 06/20/19 [History Confirmed 06/20/19] Warfarin TAB(*) [Coumadin TAB(*)] 3 mg PO SEE INSTRUCTIONS 06/20/19 [History Confirmed 06/20/19] PMH/Surg Hx/FS Hx/Imm Hx Endocrine/Hematology History: Reports: Hx Anticoagulant Therapy, Hx Diabetes, Hx Anemia Denies: Hx Blood Disorders, Hx Blood Transfusions, Hx Bone Marrow Disease, Hx Systemic Lupus Erythematosus, Hx Sickle Cell Disease, Hx Thyroid Disease, Hx Unexplained Bleeding, Other Endocrine/Hematological Disorders Cardiovascular History: Reports: Hx Angina, Hx Auto Implanted Cardiovert Defib, Hx Cardiomegaly, Hx Congestive Heart Failure, Hx Coronary Artery Disease - CABG, Cardiomyopthy,ICD, Hx Hypertension, Hx Myocardial Infarction, Hx Pacemaker/ICD - LEAD SPRINT QUAD METRONICE IS NOT MRI COMPATIBLE, Hx 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, Other Cardiovascular Problems/Disorders - DOUBLE BYPASS & MITRAL VALVE REPLACEMENT Denies: Hx Aneurysm, Hx Angioplasty, Hx Cardiac Arrest, Hx Congenital Heart Disease, Hx Deep Vein Thrombosis, Hx Hypercholesterolemia, Hx Hypotension, Hx Peripheral Vascular Disease, Hx Rheumatic Fever, Hx Syncope Respiratory History: Reports: Hx Pulmonary Edema Denies: Hx Asthma, Hx Chronic Bronchitis, Hx Chronic Obstructive Pulmonary Disease (COPD), Hx Cystic Fibrosis, Hx Lung Cancer, Hx Pleural Effusion, Hx Pneumonia, Hx Pulmonary Embolism, Hx Seasonal Allergies, Hx Sleep Apnea, Other Respiratory Problems/Disorders GI History: Denies: Hx Cirrhosis, Hx Crohn's Disease, Hx Diverticulosis, Hx Gall Bladder Disease, Hx Gastroesophageal Reflux Disease, Hx Gastrointestinal Bleed, Hx Hiatal Hernia, Hx Irritable Bowel, Hx Jaundice, Hx Obstructive Bowel, Hx Ileostomy, Hx Pyloric Stenosis, Hx Ulcer, Other GI Disorders History: Reports: Hx Kidney Stones Denies: Hx Acute Renal Failure, Hx Benign Prostatic Hyperplasia, Hx Chronic Renal Failure, Hx Dialysis, Hx Kidney Infection, Other Problems/Disorders Musculoskeletal History: Denies: Other Musculoskeletal History Sensory History: Reports: Hx Cataracts - 07/18 TOM, Hx Contacts or Glasses, Hx Vision Problem - 02/13/13: glasses Denies: Hx Eye Injury, Hx Eye Prosthesis, Hx Glaucoma, Hx Macular Degeneration, Hx Deafness, Hx Hearing Aid, Hx Hearing Problem, Other Sensory Impairments Opthamlomology History: Reports: Hx Cataracts - 07/18 TOM, Hx Contacts or Glasses, Hx Vision Problem - 02/13/13: glasses Denies: Hx Eye Injury, Hx Eye Prosthesis, Hx Glaucoma, Hx Macular Degeneration, Other Sensory Impairments Neurological History: Reports: Other Neuro Impairments/Disorders - DIABETIC NEUROPATHY Denies: Hx Dementia, Hx Developmental Delay Psychiatric History: Reports: Hx Depression Denies: Hx Anxiety, Hx Attention Deficit Hyperactivity Disorder, Hx Eating Disorder, Hx Panic Disorder, Hx Post Traumatic Stress Disorder, Hx Inpatient Treatment, Hx Community Mental Health Tx, Hx Schizophrenia, Hx Bipolar Disorder , Hx Suicide Attempt, Hx of Violent Episodes Against Others, Hx Substance Abuse , Other Psychiatric Issues/Disorders - Cancer History Hx Chemotherapy: No Hx Radiation Therapy: No - Surgical History Surgery Procedure, Year, and Place: PACEMAKER -ICS - 02/13/13 --IS NOT MRI COMPATIBLE. RIGHT CLAVICLE INTERNAL FIXATION Hx Anesthesia Reactions: No - Immunization History Date of Tetanus Vaccine: UTD Date of Influenza Vaccine: UTD Infectious Disease History: No Infectious Disease History: Denies: Hx Clostridium Difficile, Hx Hepatitis, Hx Shingles, Hx Tuberculosis , Traveled Outside the [place] in Last 30 Days - Family History Known Family History: Positive: Cardiac Disease - Social History Alcohol Use: Rare Hx Substance Use: No Substance Use Type: Reports: None Hx Tobacco Use: No Smoking Status (MU): Former Smoker Type: Cigarettes Amount Used/How Often: 1 PPD X 10 YEARS Have You Smoked in the Last Year: No Review of Systems Negative: Fever Negative: Chest Pain Positive: Cough. Negative: Shortness Of Breath Positive: Weakness All Other Systems Reviewed And Are Negative: Yes Physical Exam Triage Information Reviewed: Yes Vital Signs On Initial Exam: Initial Vitals Temp Pulse Resp BP Pulse Ox 98.3 F 74 16 128/89 98 06/20/19 19:13 06/20/19 19:13 06/20/19 19:13 06/20/19 19:13 06/20/19 19:13 Vital Signs Reviewed: Yes Appearance: Positive: Well-Appearing Skin: Positive: Warm, Dry Head/Face: Positive: Normal Head/Face Inspection Eyes: Positive: Normal, Conjunctiva Clear ENT: Positive: Pharynx normal Respiratory/Lung Sounds: Positive: Clear to Auscultation, Breath Sounds Present Cardiovascular: Positive: Normal, RRR Abdomen Description: Positive: Nontender, Soft Bowel Sounds: Positive: Present Musculoskeletal: Positive: Normal Neurological: Positive: Normal Psychiatric: Positive: Normal Diagnostics - Vital Signs Vital Signs Temp Pulse Resp BP Pulse Ox 06/20/19 19:13 98.3 F 74 16 128/89 98 - Laboratory Result Diagrams: 06/20/19 20:40 06/20/19 20:40 Lab Statement: Any lab studies that have been ordered have been reviewed, and results considered in the medical decision making process. - Radiology chest Radiology Interpretation Completed By: ED Physician Summary of Radiographic Findings: no acute findings - EKG No standard instances Cardiac Rate: NL EKG Rhythm: Sinus Rhythm EKG Comparison: No Significant Change Summary of EKG Findings: sinus rhythm, old inferior infarct Re-Evaluation - Re-Evaluation First Eval Re-Evaluation Time: 21:42 Comment: discussed results Diabetic Course/Dx - Course Course Of Treatment: 68-year-old female presents with high sugars for the past couple days. She states that her sugars have been up to 230. States sugars are normally in the 100s. She states she's been feeling weak. Has had a decrease in appetite but does not feel dehydrated. She states that have been changing her Coumadin dosing as her INR has been too high. She hasn't taken 2 doses of Coumadin per her primary. She admits to fatigue. She's had a cough. No urinary symptoms. No chest pain or shortness breath. No headache or dizziness. No nausea vomiting. No abdominal pain. No diarrhea. No other symptoms. On exam has normal physical exam. wbc normal. chest xray normal. ekg similiar to previous. glucose 262. bun/cr similiar to previous. patient unable to give urine. gave 4 insulin. told follow up with primary about sugar and keep log. inr now 2.9. patient understand and agrees with plan. - Diagnoses Differential Dx: Hyperglycemia, Pneumonia, Pyelonephritis Provider Diagnoses: Hyperglycemia Discharge ED - Sign-Out/Discharge Documenting (check all that apply): Patient Departure - Discharge Plan Condition: Good Disposition: HOME Patient Education Materials: Diabetic Hyperglycemia (ED) Referrals: Rubens Cunningham MD [Primary Care Provider] - Additional Instructions: follow up with primary continue your blood sugar log Return to ED if develop any new or worsening symptoms - Billing Disposition and Condition Condition: GOOD Disposition: Home
[2019-06-20 20:48] LABS: ABS Basophils 0.1 10^3/ul (0-0.2); ABS Eosinophils 0.1 10^3/ul (0-0.6); ABS Lymphocytes 1.4 10^3/ul (1.0-4.8); ABS Monocytes 0.6 10^3/ul (0-0.8); ABS Neutrophils 6.5 10^3/ul (1.5-7.7); Eosinophil % 1.2 %; Hematocrit 35 % (35-47); Hemoglobin 11.4 g/dL (12.0-16.0); Lymphocyte % 16.6 %; Mean Corpuscular HGB Conc 33 g/dL (31-36); Mean Corpuscular Hemoglobin 31 pg (27-31); Mean Corpuscular Volume 96 fL (80-97); Mean Platelet Volume 8.9 fL (7.4-10.4); Nucleated Red Blood Cells % 0.1; Platelet Count 214 10^3/uL (150-450); Red Blood Count 3.62 10^6 /uL (3.70-4.87); Red Cell Distribution Width 15 % (10-15); White Blood Count 8.7 10^3/uL (3.5-10.8)
[2019-06-20 20:57] LABS: INR 2.8 (0.82-1.09)
[2019-06-20 21:05] LABS: Albumin 3.9 g/dL (3.2-5.2); Albumin/Globulin Ratio 1.4 (1-3); BUN/Creatinine Ratio 21.5 (8-20); C Reactive Protein 16.38 mg/L (<8.01); Calcium 9.2 mg/dL (8.6-10.3); EGFR African American 26.6 (>60); Globulin 2.8 g/dL (2-4); Potassium 4.1 mmol/L (3.5-5.0); Total Bilirubin 0.5 mg/dL (0.2-1.0); Total Protein 6.7 g/dL (6.4-8.9)
[2019-06-20] MEDS ORDERED: Insulin REGULAR(*) 1 UNITS UNIT SUBCUT ONE (21:12)
[2019-06-20 21:56] VITALS: BP 153/88
== END 2019-06-20 21:50 | disposition home or self-care (01) ==
LOC: ED 19:07
DX: E11.65 Type 2 diabetes mellitus with hyperglycemia (principal); E11.40 Type 2 diabetes mellitus with diabetic neuropathy, unspecified; D64.9 Anemia, unspecified; I25.10 Atherosclerotic heart disease of native coronary artery without angina pectoris; I11.0 Hypertensive heart disease with heart failure; I50.9 Heart failure, unspecified; I25.2 Old myocardial infarction; Z95.2 Presence of prosthetic heart valve; Z95.1 Presence of aortocoronary bypass graft; Z95.810 Presence of automatic (implantable) cardiac defibrillator; Z87.442 Personal history of urinary calculi; Z87.891 Personal history of nicotine dependence; Z88.0 Allergy status to penicillin; Z79.4 Long term (current) use of insulin; Z79.01 Long term (current) use of anticoagulants; Z79.899 Other long term (current) drug therapy
CPT/HCPCS: 36415; 71046; 80053; 82803; 83605; 85025; 85610; 86140; 93005; 99283

== ENCOUNTER 2019-07-13 10:38 | Inpatient (IN) | payer MEDICARE ==
--- NOTE | 2019-07-13 10:46 | ED ---
Lower Extremity - HPI Summary HPI Summary: 68 year old F brought in by EMS to [facility] from home where she lives with her male partner complains of right ankle pain and right lower extremity weakness after falling on to her refrigerator in her kitchen at 00:00 today 07/13 and landing on her left side on to kitchen floor. Patient states she was lying on her left side on the floor for 8 hours and was not able to get up or call for help because her partner was at work. No head trauma or LOC. No pain in right knee, right hip, back. No weakness or acute pain in her right arm or left lower extremity. Patient states her she always has right arm pain d/t right arm injury. Additionally complains of right foot swelling in x1-2 weeks after recent medication change. The patient rates the pain 7/10 in severity. Symptoms aggravated by nothing. Symptoms alleviated by nothing. Patient denies fever, chills, erythema of eyes, sore throat, chest pain, shortness of breath, cough, abdominal pain, nausea/vomiting, dysuria, hematuria, myalgia, rash, or dizziness. Patient states she usually uses walker to ambulate. No smoking. No drinking. - History of Current Complaint Stated Complaint: FALL FOOT PAIN Time Seen by Provider: 07/13/19 10:39 Hx Obtained From: Patient Mechanism Of Injury: Other - falling on to her refrigerator in her kitchen Onset/Duration: Still Present Severity Currently: Moderate Pain Intensity: 7 Pain Scale Used: 0-10 Numeric Timing: Constant Associated Signs And Symptoms: Positive: Negative - LOC, fever, chills, erythema of eyes, sore throat, chest pain, shortness of breath, cough, abdominal pain, nausea/vomiting, dysuria, hematuria, myalgia, rash, or dizziness , pain in right knee, right hip, back, weakness or acute pain in right arm or left lower extremity, Other - right foot swelling Aggravating Factor(s): Nothing Alleviating Factor(s): Nothing - Allergies/Home Medications Allergies/Adverse Reactions: Allergies Allergy/AdvReac Type Severity Reaction Status Date / Time Penicillins Allergy Rash Verified 07/13/19 10:53 Home Medications: Home Medications Hydrocodone/Acetaminophen [Hydrocodone-Acetamin 5-325 mg] 1 each PO .5 TIMES DAILY MDD 5 tabs 07/13/19 [History Confirmed 07/13/19] Melatonin/Pyridoxine HCl (B6) [Melatonin/Vitamin B-6 Ext 3-1 mg] 4 tab PO DAILY 07/13/19 [History Confirmed 07/13/19] PMH/Surg Hx/FS Hx/Imm Hx Endocrine/Hematology History: Reports: Hx Anticoagulant Therapy, Hx Diabetes, Hx Anemia Denies: Hx Blood Disorders, Hx Blood Transfusions, Hx Bone Marrow Disease, Hx Systemic Lupus Erythematosus, Hx Sickle Cell Disease, Hx Thyroid Disease, Hx Unexplained Bleeding, Other Endocrine/Hematological Disorders Cardiovascular History: Reports: Hx Angina, Hx Auto Implanted Cardiovert Defib, Hx Cardiomegaly, Hx Congestive Heart Failure, Hx Coronary Artery Disease - CABG, Cardiomyopthy,ICD, Hx Hypertension, Hx Myocardial Infarction, Hx Pacemaker/ICD - LEAD SPRINT QUAD METRONICE IS NOT MRI COMPATIBLE, Hx 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, Other Cardiovascular Problems/Disorders - DOUBLE BYPASS & MITRAL VALVE REPLACEMENT Denies: Hx Aneurysm, Hx Angioplasty, Hx Cardiac Arrest, Hx Congenital Heart Disease, Hx Deep Vein Thrombosis, Hx Hypercholesterolemia, Hx Hypotension, Hx Peripheral Vascular Disease, Hx Rheumatic Fever, Hx Syncope Respiratory History: Reports: Hx Pulmonary Edema Denies: Hx Asthma, Hx Chronic Bronchitis, Hx Chronic Obstructive Pulmonary Disease (COPD), Hx Cystic Fibrosis, Hx Lung Cancer, Hx Pleural Effusion, Hx Pneumonia, Hx Pulmonary Embolism, Hx Seasonal Allergies, Hx Sleep Apnea, Other Respiratory Problems/Disorders GI History: Denies: Hx Cirrhosis, Hx Crohn's Disease, Hx Diverticulosis, Hx Gall Bladder Disease, Hx Gastroesophageal Reflux Disease, Hx Gastrointestinal Bleed, Hx Hiatal Hernia, Hx Irritable Bowel, Hx Jaundice, Hx Obstructive Bowel, Hx Ileostomy, Hx Pyloric Stenosis, Hx Ulcer, Other GI Disorders History: Reports: Hx Kidney Stones Denies: Hx Acute Renal Failure, Hx Benign Prostatic Hyperplasia, Hx Chronic Renal Failure, Hx Dialysis, Hx Kidney Infection, Other Problems/Disorders Musculoskeletal History: Denies: Other Musculoskeletal History Sensory History: Reports: Hx Cataracts - 07/18 TOM, Hx Contacts or Glasses, Hx Vision Problem - 02/13/13: glasses Denies: Hx Eye Injury, Hx Eye Prosthesis, Hx Glaucoma, Hx Macular Degeneration, Hx Deafness, Hx Hearing Aid, Hx Hearing Problem, Other Sensory Impairments Opthamlomology History: Reports: Hx Cataracts - 07/18 TOM, Hx Contacts or Glasses, Hx Vision Problem - 02/13/13: glasses Denies: Hx Eye Injury, Hx Eye Prosthesis, Hx Glaucoma, Hx Macular Degeneration, Other Sensory Impairments Neurological History: Reports: Other Neuro Impairments/Disorders - DIABETIC NEUROPATHY Denies: Hx Dementia, Hx Developmental Delay Psychiatric History: Reports: Hx Depression Denies: Hx Anxiety, Hx Attention Deficit Hyperactivity Disorder, Hx Eating Disorder, Hx Panic Disorder, Hx Post Traumatic Stress Disorder, Hx Inpatient Treatment, Hx Community Mental Health Tx, Hx Schizophrenia, Hx Bipolar Disorder , Hx Suicide Attempt, Hx of Violent Episodes Against Others, Hx Substance Abuse , Other Psychiatric Issues/Disorders - Cancer History Hx Chemotherapy: No Hx Radiation Therapy: No - Surgical History Surgery Procedure, Year, and Place: PACEMAKER -ICS - 02/13/13 --IS NOT MRI COMPATIBLE. RIGHT CLAVICLE INTERNAL FIXATION Hx Anesthesia Reactions: No - Immunization History Date of Tetanus Vaccine: UTD Date of Influenza Vaccine: UTD Infectious Disease History: Denies: Hx Clostridium Difficile, Hx Hepatitis, Hx Shingles, Hx Tuberculosis - Family History Known Family History: Positive: Cardiac Disease - Social History Alcohol Use: Rare Hx Substance Use: No Substance Use Type: Reports: None Hx Tobacco Use: Yes Smoking Status (MU): Former Smoker Type: Cigarettes Amount Used/How Often: 1 PPD X 10 YEARS Have You Smoked in the Last Year: No Review of Systems Negative: Fever, Chills Negative: Erythema Negative: Sore Throat Negative: Chest Pain Negative: Shortness Of Breath, Cough Negative: Abdominal Pain, Vomiting, Nausea Negative: dysuria, hematuria Musculoskeletal: Negative - acute pain in her right arm or left lower extremity , right knee pain, right hip pain, back pain Positive: Other - right ankle pain, right foot swelling. Negative: Myalgia Negative: Rash Neurological: Negative - Dizziness, LOC Positive: Weakness - right lower extremity All Other Systems Reviewed And Are Negative: Yes Physical Exam - Summary Physical Exam Summary: Constitutional: Well-developed, Well-nourished, Alert. (-) Distressed Skin: Warm, Dry HENT: Normocephalic; Atraumatic Eyes: Conjunctiva normal Neck: Musculoskeletal ROM normal neck. (-) JVD, (-) Stridor, (-) Tracheal deviation Cardio: Rhythm regular, rate normal, Heart sounds normal; Intact distal pulses; The pedal pulses are 2+ and symmetric. Radial pulses are 2+ and symmetric. (-) Murmur Pulmonary/Chest wall: Effort normal. (-) Respiratory distress, (-) Wheezes, (-) Rales Abd: Soft, (-) tenderness, (-) Distension, (-) Guarding, (-) Rebound Musculoskeletal: Right lateral malleolus is tender to palpation. No dorsal flexion or plantar flexion of right ankle d/t pain. There is no right hip or right knee tenderness. The right foot is swollen. Lymph: (-) Cervical adenopathy Neuro: Alert, Oriented x3 Psych: Mood and affect Normal Triage Information Reviewed: Yes Vital Signs Reviewed: Yes Procedures - Sedation Patient Received Moderate/Deep Sedation with Procedure: No Diagnostics - Laboratory Result Diagrams: 07/13/19 11:54 07/13/19 11:54 Lab Statement: Any lab studies that have been ordered have been reviewed, and results considered in the medical decision making process. - Radiology Right ankle x-ray Radiology Interpretation Completed By: Radiologist Summary of Radiographic Findings: 1. LIMITED STUDY. 2. OBLIQUE DISPLACED ANGULATED FRACTURE OF THE DISTAL TIBIA. ED physician has reviewed this report. Right foot x-ray Radiology Interpretation Completed By: Radiologist Summary of Radiographic Findings: SOFT TISSUE SWELLING AND PROBABLE FRACTURES OF THE DISTAL METATARSAL BONES. RECOMMEND ADDITIONAL IMAGING FOR FURTHER DEFINITION. ED physician has reviewed this report. Right hip x-ray Radiology Interpretation Completed By: Radiologist Summary of Radiographic Findings: 1. OSTEOPENIA. 2. OSTEOARTHRITIS. 3. PERIPHERAL ARTERIAL DISEASE. 4. NO RADIOGRAPHIC EVIDENCE FOR HIP FRACTURE. X-RAYS MAY BE NEGATIVE WITH NONDISPLACED HIP FRACTURE, IF THERE IS PERSISTENT CLINICAL CONCERN, RECOMMEND CONSIDERATION OF MRI. IN THE SETTING OF CONTRAINDICATION TO MRI OR LIMITATION IN EMERGENT ACCESS TO MRI, CT WOULD BE SUGGESTED. ED physician has reviewed this report. Right knee x-ray Radiology Interpretation Completed By: Radiologist Summary of Radiographic Findings: 1. Negative for fracture. 2. Small joint effusion. ED physician has reviewed this report. - EKG 1055 Cardiac Rate: NL - 78 BPM EKG Rhythm: Sinus Rhythm Summary of EKG Findings: T wave inversions in V4-V6 which are new. Re-Evaluation - Re-Evaluation First Eval Re-Evaluation Time: 11:54 Change: Unchanged Comment: male partner at patient's bedside. patient informed of DISPLACED ANGULATED FRACTURE OF THE DISTAL TIBIA. patient is agreeable to admission Lower Extremity Course/Dx - Course Course Of Treatment: 68 year old F brought in by EMS from home complains of right ankle pain and right lower extremity weakness after falling on to her refrigerator in her kitchen at 00:00 today 07/13 and landing on her left side on to kitchen floor. No head trauma or LOC. Additionally complains of right foot swelling in x1-2 weeks after recent medication change. . Upon exam, the right lateral malleolus is tender to palpation. No dorsal flexion or plantar flexion of right ankle d/t pain. There is no right hip or right knee tenderness. The right foot is swollen. Bloodwork results with no significant abnormalities except for RBC 3.45, Hgb 10.8, Hct 34, MCV 99, RDW 16, absolute lymphs 0.9, BUN 40, creatinine 1.79, BUN/creatinine 22.3, magnesium 1.8, TSH 9.64. An EKG shows NSR 78 BPM and T wave inversions in V4-V6 which are new. Right ankle shows, per radiologist: 1. LIMITED STUDY. 2. OBLIQUE DISPLACED ANGULATED FRACTURE OF THE DISTAL TIBIA. Right foot shows, per radiologist: SOFT TISSUE SWELLING AND PROBABLE FRACTURES OF THE DISTAL METATARSAL BONES. RECOMMEND ADDITIONAL IMAGING FOR FURTHER DEFINITION. Right hip shows, per radiologist: 1. OSTEOPENIA. 2. OSTEOARTHRITIS. 3. PERIPHERAL ARTERIAL DISEASE. 4. NO RADIOGRAPHIC EVIDENCE FOR HIP FRACTURE. X-RAYS MAY BE NEGATIVE WITH NONDISPLACED HIP FRACTURE, IF THERE IS PERSISTENT CLINICAL CONCERN, RECOMMEND CONSIDERATION OF MRI. IN THE SETTING OF CONTRAINDICATION TO MRI OR LIMITATION IN EMERGENT ACCESS TO MRI, CT WOULD BE SUGGESTED. Right knee shows, per radiologist: 1. Negative for fracture. 2. Small joint effusion. In the ED course, the patient was given Tylenol 975 mg PO. Patient was also given Percocet [address] Subramanian, hospitalist, agrees to admit patient and recommends consulting orthopedics. Spoke with Dr. Parr, orthopedics, who requests splinting, and applying significant elevation and ice to area, and admitting to medicine for pre-op clearance. The patient will be admitted to the hospitalist. - Diagnoses Provider Diagnoses: Right tibial fracture, Fracture of metatarsal bone of right foot - Physician Notifications Discussed Care Of Patient With: Alessandro Subramanian Time Discussed With Above Provider: 12:48 Instructed by Provider To: Other - Dr. Subramanian, hospitalist, agrees to admit patient and recommends consulting orthopedics. Spoke with Dr. Parr, orthopedics , at 12:52 who requests splinting, and applying significant elevation and ice to area, and admitting to medicine for pre-op clearance. Discharge ED - Sign-Out/Discharge Documenting (check all that apply): Patient Departure - Admit - Discharge Plan Condition: Stable Disposition: ADMITTED TO [facility] Referrals: Rubens Cunningham MD [Primary Care Provider] - Additional Instructions: Follow up with your primary care provider in 3 days. Return to the Emergency Department for changing or worsening symptoms. - Attestation Statements Document Initiated by Scribe: Yes Documenting Scribe: Karly Romano Provider For Whom Scribe is Documenting (Include Credential): Geovany Castillo MD Scribe Attestation: Karly Ash, scribed for Geovany Castillo MD on 07/13/19 at 1347. Status of Scribe Document: Ready
[2019-07-13] MEDS ORDERED: Acetaminophen TAB* 325 MG PO ONE (10:48)
--- OUTSIDE RECORDS SUMMARY | 2019-07-13 10:50 | XMS REPORT | Continuity of Care Document ---
:1950 External Reference #:[id number] Author Name Ej Singleton M.D. (transmitted by agent of provider Coreen Garcia) Address [address] [place] [address] Problems Active Problems Provider Date Primary cardiomyopathy Ej Singleton M.D. Onset: 06/21/2013 Arteriosclerosis of autologous vein coronary Ej Singleton M.D. Onset: artery bypass graft Chronic ischemic heart disease Ej Singleton M.D. Onset: 06/21/2013 Automatic implantable cardiac defibrillator Ej Singleton M.D. Onset: in situ Mitral valve disorder Ej Singleton M.D. 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 Onset: 02/01/2014 ventricular systolic dysfunction Coronary arteriosclerosis Ej Singleton M.D. Onset: 02/01/2014 Mitral leaflet abnormality Ej Singleton M.D. Onset: 06/06/2015 Arteriosclerosis of coronary artery bypass Ej Singleton M.D. Onset: 10/2014 graft Cardiomyopathy, unspecified Ica Pacer Schedule Onset: 08/07/2015 Nonunion of fracture Gabriel Bee MD Onset: 06/09/2017 Pain due to internal orthopedic prosthetic Gabriel Bee MD Onset: 08/12/2017 devices, implants and grafts, initial encounter Unspecified fracture of upper end of right Gabriel Bee MD Onset: 04/04/2018 humerus, subsequent encounter for fracture with routine healing Rotator cuff tear arthropathy Gabriel Bee MD Onset: 06/22/2018 Social History Type Date Description Comments Sex Unknown ETOH Use Denies alcohol use Tobacco Use Start: Unknown End: Patient is a former quit in 1975 Unknown smoker Recreational Drug Use Denies Drug Use Smoking Status Reviewed: 07/11/19 Patient is a former quit in 1975 smoker Exercise Type/Frequency Does not exercise Allergies, Adverse Reactions, Alerts Active Allergies Reaction Severity Comments Date Penicillin 06/21/2013 Metformin 05/22/2014 Medications Active Medications SIG Qnty Indications Ordering Date Provider Entresto one a day 90tabs Ej Sosa 07/11/2019 24-26mg Tablets Isa Singleton Atorvastatin Calcium 1 po qd 90tabs Unknown 10mg Tablets Allopurinol 1 po qd 30tabs Unknown 300mg Tablets Iron 1 po qd 90tabs Unknown 325(65Fe) mg Tablets Multivitamins 1 capsule daily 30caps Unknown Capsules Coreg 1/2 by mouth Unknown 6.25mg Tablets twice a day Lantus 8 units daily 6Vials Unknown 100Unit/ML Solution Repaglinide 1 po tid Unknown 0.5mg Tablets Warfarin Sodium as directed Unknown 1mg (followed by Tablets 's office) currently taking 2 mg po once daily/07/11/19 Furosemide 1/2 tab in am and Unknown 80mg Tablets 1/2 tab pm Trazodone HCL 1 po qd at night Unknown 50mg as needed Tablets Sertraline HCL 4 pills daily John Wolff, 50mg [employer] Tablets Hydrocodone-Acetaminop 1 tab every 6 John Wolff, hen hours as needed [employer] 5-325mg Tablets Medications Administered in Office Medication SIG Qnty Indications Ordering Provider Date Triamcinolone (Kenalog) Gabriel Bee MD 01/19/2018 Injection Immunizations Description No Information Available Vital Signs Date Vital Result Comment 07/11/2019 9:13am Height 62 inches 5'2" Weight 162.00 lb with shoes Heart Rate 60 /min BP Systolic Sitting 142 mmHg lue reg cuff BP Diastolic Sitting 68 mmHg lue reg cuff BP Systolic Standing 138 mmHg lue reg cuff BP Diastolic Standing 68 mmHg lue reg cuff Respiratory Rate 16 /min BMI (Body Mass Index) 29.6 kg/m2 Ejection Fraction 20-25% 138 03/22/2019 8:31am Height 62 inches 5'2" Weight 157.00 lb BP Systolic 136 mmHg BP Diastolic 76 mmHg Respiratory Rate 16 /min Pain Level 8 BMI (Body Mass Index) 28.7 kg/m2 Results Test Acquired Date Facility Test Result H/L Range Note Order 07/11/2019 [facility]-House E[facility] <pending> Procedures Date Code Description Status 07/11/2019 56318 EKG Tracing & Interpretation Completed 07/05/2019 33183 Interrogation Device Eval Remote Up To 30 Days Completed Analysis,Rev,RP 07/05/2019 07349 Icd Eval Sing,Dual,Multi Lead Remote Recpt Transm Tech Rev Completed Tech S 07/05/2019 00562 Icd Check Remote Up To 90 Days Single,Dual,Multiple Lead Completed 04/05/2019 18929 Interrogation Device Eval Remote Up To 30 Days Completed Analysis,Rev,RP 04/05/2019 58171 Interrogation Device Eval Remote Up To 30 Days Completed Analysis,Rev,RP 04/05/2019 40771 Icd Eval Sing,Dual,Multi Lead Remote Recpt Transm Tech Rev Completed Tech S 04/05/2019 65267 Icd Eval Sing,Dual,Multi Lead Remote Recpt Transm Tech Rev Completed Tech S 04/05/2019 50246 Icd Check Remote Up To 90 Days Single,Dual,Multiple Lead Completed 04/05/2019 24840 Icd Check Remote Up To 90 Days Single,Dual,Multiple Lead Completed 03/21/2019 00428 Diffusing Capacity Completed 03/21/2019 81427 Plethysmography Determination Lung Volumes & Per Airway Completed Resist 03/21/2019 65433 Pulmonary Function><Bronchodil Completed Medical Devices Description No Information Available Encounters Type Date Location Provider Dx Diagnosis Office Visit 07/11/2019 [facility] Ej Sosa I25.5 Ischemic 9:15a Of [facility] Singleton M.D. cardiomyopathy Z95.810 Presence of automatic (implantable) cardiac defibrillator I25.10 Athscl heart disease of [place] coronary artery w/o ang pctrs R60.0 Localized edema Office Visit 03/22/2019 Pretty Rios M19.111 Post-traumatic 8:30a Orthopedics at [facility] osteoarthritis, [place] right shoulder Z87.81 Personal history of (healed) traumatic fracture Assessments Date Code Description Provider 07/11/2019 I25.5 Ischemic cardiomyopathy Ej Singleton M.D. 07/11/2019 Z95.810 Presence of automatic (implantable) cardiac Ej Singleton M.D. defibrillator 07/11/2019 I25.10 Atherosclerotic heart disease of [place] Ej Singleton M.D. coronary artery with 07/11/2019 R60.0 Edema Ej Singleton M.D. 07/05/2019 I25.5 Ischemic cardiomyopathy Remote Device Checks 07/05/2019 Z95.810 Presence of automatic (implantable) cardiac Remote Device Checks defibrillator 07/05/2019 I48.91 Unspecified atrial fibrillation Remote Device Checks 04/05/2019 I25.5 Ischemic cardiomyopathy Ej Singleton M.D. 04/05/2019 I25.5 Ischemic cardiomyopathy Remote Device Checks 04/05/2019 Z95.810 Presence of automatic (implantable) cardiac Ej Singleton M.D. defibrillator 04/05/2019 Z95.810 Presence of automatic (implantable) cardiac Remote Device Checks defibrillator 03/22/2019 M19.111 Post-traumatic osteoarthritis, right Gabriel Bee MD shoulder 03/22/2019 Z87.81 Personal history of (healed) traumatic Gabriel Bee MD fracture 03/21/2019 R05 Cough Ambar Castillo MD Plan of Treatment Future Appointment(s):10/10/2019 1:30 pm - Ej Singleton M.D. at [facility]08/09/2019 1:30 pm - Edie Cab[place] [facility]07/11/2019 - Ej Singleton M.D.I25.5 Ischemic cardiomyopathyFollow up:3 weeks with ADMINISTRATIVE ACCOUNTANT OV with MD in 3 monthsRecommendations: Stop Atacand when you start Entresto Decrease Lasix to 40 mg a day when you start Entresto Blood work in 2 lhwawW66.810 Presence of automatic (implantable) cardiac hfjbuwyqlhursX73.10 Atherosclerotic heart disease of [place] coronary artery withR60.0 Edema Functional Status Description No Information Available Mental Status Description No Information Available Referrals Description No Information Available
--- OUTSIDE RECORDS SUMMARY | 2019-07-13 10:50 | XMS REPORT | Continuity of Care Document ---
:1950 External Reference #:[id number] Author Name Ej Singleton M.D. (transmitted by agent of provider Eugenia Burroughs) Address [facility] [place] [address] Problems Active Problems Provider Date Primary cardiomyopathy [...] Use Denies Drug Use Smoking Status Reviewed: 03/22/19 Patient is a former quit in 1975 smoker Exercise Type/Frequency Does not exercise Allergies, Adverse Reactions, Alerts Active Allergies Reaction Severity Comments Date Penicillin 06/21/2013 Metformin 05/22/2014 Medications Active Medications SIG Qnty Indications Ordering Date Provider [place]and 1 by mouth every 90tabs Ej Sosa 09/15/2017 8mg Tablets aniyah Singleton M.D. 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 5-325mg Tablets Medications Administered in Office Medication SIG Qnty Indications Ordering Provider Date Triamcinolone (Kenalog) Gabriel Bee MD 01/19/2018 Injection Immunizations Description No Information Available Vital Signs Date Vital Result Comment 03/22/2019 8:31am Height 62 inches 5'2" Weight 157.00 lb BP Systolic 136 mmHg BP Diastolic 76 mmHg Respiratory Rate 16 /min Pain Level 8 BMI (Body Mass Index) 28.7 kg/m2 01/03/2019 2:28pm Height 62 inches 5'2" Weight 157.00 lb per pt Heart Rate 70 /min BP Systolic Sitting 112 mmHg Lue reg cuff BP Diastolic Sitting 60 mmHg Lue reg cuff BMI (Body Mass Index) 28.7 kg/m2 Ejection Fraction 20-25% 01/09/17 echo Results Description No Information Available Procedures Date Code Description Status 04/05/2019 67626 Interrogation Device Eval Remote Up To 30 Days Completed Analysis,Rev,RP 04/05/2019 11462 Interrogation Device Eval Remote Up To 30 Days Completed Analysis,Rev,RP 04/05/2019 66902 Icd Eval Sing,Dual,Multi Lead Remote Recpt Transm Tech Rev Completed Tech S 04/05/2019 17272 Icd Eval Sing,Dual,Multi Lead Remote Recpt Transm Tech Rev Completed Tech S 04/05/2019 73354 Icd Check Remote Up To 90 Days Single,Dual,Multiple Lead Completed 04/05/2019 75491 Icd Check Remote Up To 90 Days Single,Dual,Multiple Lead Completed 03/21/2019 13723 Diffusing Capacity Completed 03/21/2019 09348 Plethysmography Determination Lung Volumes & Per Airway Completed Resist 03/21/2019 42847 Pulmonary Function><Bronchodil Completed 01/03/2019 71345 Interrogation Implant Cardiovasc Monitor System Incl Completed Analysis Int 01/03/2019 25584 Interrogation Implant Cardiovasc Monitor System Incl Completed Analysis Int 01/03/2019 70614 Icd eval w/iterative adjment single lead Icd Completed 01/03/2019 84711 Icd eval w/iterative adjment single lead Icd Completed Medical Devices Description No Information Available Encounters Type Date Location Provider Dx Diagnosis Office Visit 03/22/2019 [facility] Gabriel Bee MD M19.111 Post- traumatic 8:30a at [place] osteoarthritis, right shoulder Z87.81 Personal history of (healed) traumatic fracture Office Visit 01/03/2019 2:45p Demetrius Sosa 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 04/05/2019 I25.5 Ischemic cardiomyopathy Remote Device Checks 04/05/2019 Z95.810 Presence of automatic (implantable) cardiac Ej Singleton M.D. defibrillator 04/05/2019 Z95.810 Presence of automatic (implantable) cardiac Remote Device Checks defibrillator 03/22/2019 M19.111 Post-traumatic osteoarthritis, right Gabriel Bee MD shoulder 03/22/2019 Z87.81 Personal history of (healed) traumatic Gabriel Bee MD fracture 03/21/2019 R05 Cough Ambar Castillo MD 01/03/2019 I25.5 Ischemic cardiomyopathy Ej Singleton M.D. 01/03/2019 I25.5 Ischemic cardiomyopathy Ej Singleton M.D. 01/03/2019 I25.5 Ischemic cardiomyopathy Ica Pacer Schedule 01/03/2019 Z95.810 Presence of automatic (implantable) cardiac Ej Singleton M.D. defibrillator 01/03/2019 Z95.810 Presence of automatic (implantable) cardiac Ej Singleton M.D. defibrillator 01/03/2019 Z95.810 Presence of automatic (implantable) cardiac Ica Pacer Schedule defibrillator 01/03/2019 I25.10 Atherosclerotic heart disease of [place] Ej Singleton M.D. coronary artery with 01/03/2019 R94.31 Abnormal electrocardiogram [ECG] [EKG] Ej Singleton M.D. 01/03/2019 Z01.810 Encounter for preprocedural cardiovascular Ej Singleton M.D. examination Plan of Treatment 03/22/2019 - Gabriel Bee, MDM19.111 Post-traumatic osteoarthritis, right shoulderFollow up:Follow up: for h and pZ87.81 Personal history of (healed) traumatic fracture Functional Status Description No Information Available Mental Status Description No Information Available Referrals Description No Information Available
[2019-07-13] MEDS ORDERED: oxyCODONE/Acetamin 5/325 MG* TAB PO ONE (11:53)
[2019-07-13 12:06] LABS: ABS Eosinophils 0.1 10^3/ul (0-0.6); ABS Lymphocytes 0.9 10^3/ul (1.0-4.8); ABS Monocytes 0.5 10^3/ul (0-0.8); ABS Neutrophils 7.3 10^3/ul (1.5-7.7); Eosinophil % 0.9 %; Hematocrit 34 % (35-47); Hemoglobin 10.8 g/dL (12.0-16.0); Lymphocyte % 10.6 %; Mean Corpuscular HGB Conc 32 g/dL (31-36); Mean Corpuscular Hemoglobin 31 pg (27-31); Mean Corpuscular Volume 99 fL (80-97); Platelet Count 163 10^3/uL (150-450); Red Blood Count 3.45 10^6 /uL (3.70-4.87); Red Cell Distribution Width 16 % (10-15); White Blood Count 8.8 10^3/uL (3.5-10.8)
[2019-07-13 12:20] LABS: Albumin 3.7 g/dL (3.2-5.2); Albumin/Globulin Ratio 1.3 (1-3); BUN/Creatinine Ratio 22.3 (8-20); Calcium 9.2 mg/dL (8.6-10.3); EGFR African American 34.3 (>60); EGFR Non-African American 28.3 (>60); Globulin 2.8 g/dL (2-4); Magnesium 1.8 mg/dL (1.9-2.7); Potassium 3.5 mmol/L (3.5-5.0); Total Bilirubin 0.7 mg/dL (0.2-1.0); Total Protein 6.5 g/dL (6.4-8.9)
[2019-07-13 12:21] LABS: Troponin I 0.03 ng/mL (<0.04)
[2019-07-13 12:50] LABS: TSH (Thyroid Stimulating Horm) 9.64 mcIU/mL (0.34-5.60)
[2019-07-13 13:51] LABS: INR 1.9 (0.82-1.09)
[2019-07-13 14:54] LABS: Urine Appearance Cloudy; Urine Bacteria 1+ (Absent); Urine Bilirubin Negative (Negative); Urine Blood Negative (Negative); Urine Color Yellow; Urine Glucose Negative (Negative); Urine Ketones Negative (Negative); Urine Nitrite Negative (Negative); Urine Protein 1+(30 mg/dL) (Negative); Urine Red Blood Cell 2+(6-10/hpf) (Absent); Urine Specific Gravity 1.012 (1.010-1.030); Urine Squamous Epithelial Cell Present (Absent); Urine Urobilinogen Negative (Negative); Urine White Blood Cell 3+(>20/hpf) (Absent)
--- NOTE | 2019-07-13 15:17 | CONSULT ---
<Juan Allen - Last Filed: 07/13/19 15:17> Consult Consult: 68 year old F brought in by EMS to [facility] from home where she lives with her male partner complains of right ankle pain and right lower extremity weakness after falling on to her refrigerator in her kitchen at 00:00 today 07/13 and landing on her left side on to kitchen floor. Patient states she was lying on her left side on the floor for 8 hours and was not able to get up or call for help because her partner was at work. No head trauma or LOC. No pain in right knee, right hip, back. No weakness or acute pain in her right arm or left lower extremity. The patient rates the pain 7/10 in severity. Symptoms aggravated weight bearing. Symptoms alleviated by nothing. Patient denies fever, chills, erythema of eyes, sore throat, chest pain , shortness of breath, cough, abdominal pain, nausea/vomiting, dysuria, hematuria, myalgia, rash, or dizziness. Patient states she usually uses walker to ambulate. Allergies Allergy/AdvReac Type Severity Reaction Status Date / Time Penicillins Allergy Rash Verified 07/13/19 10:53 Home Medications: 1. Allopurinol 300mg 2. Atorvastatin 10mg 3. Coreg 5.25 4. Entresto 24 - 26 Furosemide 80mg 6. Hydrocodone - Acetaminophen 5 - 325 7. Iron 325 8. Lantus 100 Units/mL 9. Multivitamins 10. Repaglindide 0.5mg 11. Sertraline 50mg 12. Trazodone 50mg 13. Warfarin Sodium 1mg. PMHx 1. Anticoagulant Therapy 2. Diabetes 3. Anemia 4. Angina 5. Auto Implanted Cardiovert Defib 6. Cardiomegaly 7. Congestive Heart Failure 8 .Coronary Artery Disease - CABG,Cardiomyopthy,ICD 9 .Hypertension 10 Hx Myocardial Infarction 11. 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 12. Pulmonary Edema - Surgical History [facility] - 02/13/13 --IS NOT MRI COMPATIBLE. RIGHT CLAVICLE INTERNAL FIXATION - Family History Known Family History: Positive: Cardiac Disease - Social History Alcohol Use: Rare Hx Substance Use: No Substance Use Type: Reports: None Hx Tobacco Use: Yes Smoking Status (MU): Former Smoker Type: Cigarettes Amount Used/How Often: 1 PPD X 10 YEARS Have You Smoked in the Last Year: No Review of Systems Negative: Fever, Chills Negative: Erythema Negative: Sore Throat Negative: Chest Pain Negative: Shortness Of Breath, Cough Negative: Abdominal Pain, Vomiting, Nausea Negative: dysuria, hematuria Musculoskeletal: pain in the left lower extremity, right knee pain, right hip pain, back pain Positive: Other - right ankle pain, right foot swelling. Negative: Myalgia Negative: Rash Neurological: Negative - Dizziness, LOC Positive: Weakness - right lower extremity All Other Systems Reviewed And Are Negative: Yes Physical Exam Physical Exam Summary: Constitutional: Well-developed, Well-nourished, Alert. (-) Distressed HENT: Normocephalic; Atraumatic Cardio: Rhythm regular, rate normal, Heart sounds normal; Intact distal pulses; Pulmonary: Clear to auscultation with no wheezes, rales or rhonchi. Musculoskeletal: Right lower extremity is placed in splint. Splint is clean, dry and intact. IMAGING: Right ankle x-ray Radiology Interpretation Completed By: Radiologist Summary of Radiographic Findings: 1. LIMITED STUDY. 2. OBLIQUE DISPLACED ANGULATED FRACTURE OF THE DISTAL TIBIA. ED physician has reviewed this report. ASSESSMENT: Right distal tibia displaced oblique angulated fracture PLAN: 1. Hospital medicine to admit pt and start optimizing 2. Cardiology to be consulted given heart history and EF of [address] of the lower extremity to further assess the fracture. 4. Plan is a tibial rodding once the pt is medically optimized. <John Farley - Last Filed: 07/14/19 10:53> Consult Consult: I saw the patient briefly with Juan Allen in the ED for an introduction to myself. I then spoke with the patient at the end of the day. Due to worsening EF on echo and elevated INR, per Hospitalist, cardiology had decided that OR would be inappropriate on Tuesday. The INR was lightly reversed with Vitamin K by Hospitalist. The patient appeared comfortable lying in bed each time I saw her. No significant pain with PROM on exam. Foot warm well-perfused. No mention by ED staff of any skin or soft tissue compromise on exam. The exam in ED note just notes TTP of lateral malleolus and foot soft tissue swelling. CT showed non-displaced lateral malleolus fracture not apparent on xray along with the spiral or oblique fracture of tibial shaft. Plan was for pain control, right lower extremity elevation, and cardiology consult for fitness for surgery. No plans for surgery Tuesday, but perhaps Tuesday/Tuesday if the patient is safe for surgery by cards.
[2019-07-13] MEDS ORDERED: Acetaminophen TAB* 325 MG PO PRN (15:19)
[2019-07-13] MEDS ORDERED: Phytonadione Oral Solution* 5 MG/25 ML UDC PO ONE (15:36)
[2019-07-13] MEDS ORDERED: Magnesium Hydroxide LIQ* 30 ML UDC PO PRN (15:41)
[2019-07-13] MEDS ORDERED: Senna TAB 8.6 mg* TAB PO PRN (15:41)
[2019-07-13] MEDS ORDERED: Polyethylene Glycol 3350* 17 GM PACKET PO PRN (15:41)
[2019-07-13] MEDS ORDERED: HYDROcodone/ACETAMIN 5-325 MG* 1 TAB PO SCH ×2 (16:00→17:00)
--- NOTE | 2019-07-13 17:28 | ECHO ---
*[facility]* [place] [address] Fax #: [phone] Transthoracic Echocardiogram Patient: Rui Gustafson : 1950 Study Date: 07/13/2019 Age: 68 Gender: F HR: Height: 63 in /160 cm BSA: 1.75 m^2 Weight: 158.7 lb /72.1 kg BMI: 28.2 kg/m^2 *[employer] Kiln: Petra Mckeon [facility] *Referring Physician: * Edyta Garland *Reading Physician: * Jose Martin Ernandez MD Indications: Abnormal EKG. Cardiomyopathy. History: S/P mitral valve repair 2013,CABG and [place] in the past. Coronary artery disease. Mitral valve disease. Risk factors: Hypertension. Diabetes mellitus. Labs, prior tests, procedures, and surgery: Coronary artery bypass grafting. Conclusions Summary: - Left ventricle: Systolic function is severely reduced. The estimated ejection fraction is 10-15%. Systolic function is worse from the study of January 2017 when it was 20-25%. Doppler parameters are consistent with a reversible restrictive pattern, indicative of decreased left ventricular diastolic compliance and/or increased left atrial pressure (grade 3 diastolic dysfunction). - Regional wall motion abnormality: Akinesis and scarring of the basal inferior myocardium; akinesis of the basal-mid inferoseptal and mid inferior myocardium. - Right ventricle: Systolic function is moderately reduced. - Left atrium: The atrium is mildly to moderately dilated. - Mitral valve: Prior procedures include surgical repair. There is an annuloplasty ring. The findings are consistent with mild stenosis with normal function s/p repair. There is moderate regurgitation. The presence of regurgitation is new since the study of January 2017. Study data: Transthoracic echocardiogram. Procedure: Transthoracic echocardiography was performed. Image quality was good. The study was technically limited due to restricted patient mobility. Complete 2D, spectral Doppler, and color flow Doppler. Location: Emergency department. The previous study was not available, so comparison is made to the report of January 2017. Rhythm: Paced rhythm. Findings Left ventricle: The cavity size is trivially dilated. Wall thickness is normal. Systolic function is severely reduced. The estimated ejection fraction is 10-15%. Systolic function is worse from the study of January 2017 when it was 20-25%. Severe diffuse hypokinesis.with the posterior and lateral harris least impaired and the inferior inferoseptal segments akinetic. Regional wall motion abnormalities: Akinesis and scarring of the basal inferior myocardium; akinesis of the basal-mid inferoseptal and mid inferior myocardium. Doppler parameters are consistent with a reversible restrictive pattern, indicative of decreased left ventricular diastolic compliance and/or increased left atrial pressure (grade 3 diastolic dysfunction). Right ventricle: Well visualized. The cavity size is dilated. Wall thickness is normal. Pacer wire noted in the right ventricle. Systolic function is moderately reduced. Ventricular septum: Well visualized. Left atrium: Well visualized. The atrium is mildly to moderately dilated. Right atrium: Well visualized. The atrium is normal in size. Atrial septum: Well visualized. Mitral valve: Prior procedures include surgical repair. There is an annuloplasty ring. The leaflets are mildly thickened. No echocardiographic evidence for prolapse. The findings are consistent with mild stenosis with normal function s/p repair. There is moderate regurgitation. The presence of regurgitation is new since the study of January 2017. Aortic valve: Well visualized. The valve is trileaflet. The leaflets are mildly thickened. Valve mobility is restricted. The findings are consistent with mild stenosis. There is no significant regurgitation. Tricuspid valve: Well visualized. The leaflets are normal thickness. There is no evidence of stenosis. There is moderate regurgitation. Pulmonic valve: Not well visualized. The leaflets are normal thickness. There is no evidence of stenosis. There is no significant regurgitation. Aorta: The aorta is well visualized and normal size. The aortic arch appears normal. Pericardium: There is no pericardial effusion. No evidence of pleural fluid accumulation. Pulmonary arteries: Not well visualized. Systemic veins: Well visualized. Inferior vena cava: There is (< 50%) respiratory change in the IVC dimension. Measurements Left ventricle Value Ref Aortic valve Value Ref JOANN, LAX 4.9 cm 3.8 - Peak v, S 1.19 m/sec ----- 5.2 VTI, S 20.3 cm ----- ESD, LAX (H) 4.8 cm 2.2 - Mean grad, S 3.0 mm Hg ----- 3.5 Peak grad, S 6.0 mm Hg ----- FS, LAX (L) 3 % 27 - 45 LVOT/AV, VTI ratio 0.54 ----- PW, ED, LAX (H) 1.1 cm 0.6 - GRAEME, VTI 2.43 cm^2 ----- 0.9 GRAEME, Vmax 2.20 cm^2 ----- FS (L) 3 % 27 - 45 PW, ED (H) 1.1 cm 0.6 - Mitral valve Value Ref 0.9 Peak E 1.63 m/sec ----- PW/ID, ED 0.22 -------- Peak A 0.75 m/sec ----- E', lat thierno, TDI (L) 5.3 cm/sec >=10.0 Decel time 153 ms -- --- E/e', lat thierno, TDI 31 -------- PHT 42 ms ----- E', med thierno, TDI (L) 2.6 cm/sec >=7.0 Mean grad, D 3.0 mm Hg -- --- E/e', med thierno, TDI 63 -------- Peak grad, D 11.0 mm Hg ----- E', avg, TDI 4.0 cm/sec -------- Peak E/A ratio 2.2 ----- E/e', avg, TDI (H) 41 <=14 MVA, PHT 5.2 cm^2 -- --- ERO, PISA 0.13 cm^2 ----- LVOT Value Ref MR vol, PISA 19 ml ----- Diam, S 2.40 cm -------- MR fraction, PISA 28 % ----- Area 4.5 cm^2 -------- Peak sheldon, S 0.58 m/sec -------- Pulmonic valve Value Ref VTI, S 10.9 cm -------- Peak v, S 0.64 m/sec ----- Mean grad, S 1 mm Hg -------- Peak grad, S 2.0 mm Hg ----- SV 49 ml -------- Tricuspid valve Value Ref Ventricular septum Value Ref TR peak v (H) 3.96 m/sec <=2.8 IVS, ED (H) 1.0 cm 0.6 - Peak RV-RA grad, S 63 mm Hg ----- 0.9 Max TR sheldon 3.96 m/sec ----- Right ventricle Value Ref Aortic arch Value Ref JOANN, LAX 4.0 cm -------- Arch diam 3.0 cm ----- JOANN minor ax, A4C (H) 4.7 cm 1.9 - mid 3.5 Decending aorta Value Ref Jory peak sheldon 0.43 m/sec ----- Left atrium Value Ref ML dim, A4C 4.8 cm -------- Inferior vena cava Value Ref SI dim, A4C 6.7 cm -------- Diam 2.2 cm ----- Vol/bsa, ES, 1-p (H) 52 ml/m^2 11 - 40 A4C Right atrium Value Ref SI dim, ES (H) 6.0 cm 3.4 - 5.3 ML dim, ES, A4C (H) 5.2 cm 2.6 - 4.4 SI dim, ES, A4C (H) 6.0 cm 3.4 - 5.3 Estimated RAP 8 mm Hg -------- Legend: (L) and (H) suad values outside specified reference range. Prepared and electronically signed by Jose Martin Ernandez MD 07/13/2019 17:28
[2019-07-13] MEDS ORDERED: Potassium Chlor TAB* 10 MEQ TAB.ER PO ONE (18:33)
[2019-07-13] MEDS ORDERED: Nitro 2% OINT* (Nitroglycerin) 1 INCH/PAK PAK TOPICAL ONE (18:33)
[2019-07-13] MEDS: Furosemide IV* 10 MG/ML VIAL (40 MG) IV ONE ×2 (19:32→22:21)
[2019-07-13] MEDS: Magnesium Sulfate 2 GM IV* 2 GM/50 ML BAG IVPB ONE ×3 (19:34→22:24)
[2019-07-13] MEDS: traZODone TAB* 50 MG TAB PO SCH (20:04)
[2019-07-13] MEDS: Carvedilol TAB* 3.125 MG PO SCH (20:04)
[2019-07-13] MEDS: Atorvastatin* 10 MG TAB PO SCH (20:10)
[2019-07-13] MEDS ORDERED: Magnesium Hydroxide LIQ* 30 ML UDC PO SCH (21:00)
[2019-07-13] MEDS ORDERED: Docusate CAP* 100 MG PO SCH (21:00)
[2019-07-13] MEDS ORDERED: Carvedilol TAB* 3.125 MG PO SCH (21:00)
[2019-07-13] MEDS ORDERED: cefTRIAXone(*) 1 GM in NS 0.9% 50 ML* 50 ML IVPB SCH (21:00)
[2019-07-13] MEDS: HYDROcodone/ACETAMIN 5-325 MG* 1 TAB PO SCH (21:30)
[2019-07-13] MEDS: Nystatin TOP POWDER* 15 GM BTL TOPICAL SCH (22:08)
--- NOTE | 2019-07-14 00:36 | HP ---
CC: Dr. Cunningham * ADMISSION HISTORY AND PHYSICAL: DATE OF ADMISSION: 07/13/19 PROVIDER: Edyta Garland NP PRIMARY CARE PROVIDER: Dr. Cunningham. ATTENDING PHYSICIAN WHILE IN THE HOSPITAL: Dr. Alessandro Subramanian * (dictated by Edyta Garland NP). CHIEF COMPLAINT: Right ankle pain. HISTORY OF PRESENT ILLNESS: Ms. Gustafson is a 68-year-old female with a past medical history significant for type 2 diabetes, chronic kidney disease, depression, hyperlipidemia, history of atrial fibrillation, neuropathy, retinopathy, coronary artery disease, history of CHF with best known EF of 20% to 25% and history of a CVA, who presented to the emergency room after a fall at home. The patient reports that she was standing in her kitchen. She lost her balance and fell at approximately 2 a.m. The patient denied any loss of consciousness. She denied any head injury. She denies any neck pain. She did complain of right ankle pain and unable to get up. 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 He then called the ambulance and she was brought to the emergency room for further evaluation. The patient denies any fever, chills, unintended weight loss, denies any chest pain. She does report lower extremity edema. Denies any cough, hemoptysis or shortness of breath. No nausea, vomiting, diarrhea or abdominal pain. Denies any gross hematuria, dysuria, focal weakness or sensory loss. Denies any visual complaints, dysphagia, arthralgias, myalgias. She does have a rash in her bilateral groin. She denies any psychosis or anxiety. While in the emergency room, she had routine lab work drawn and an x-ray of her right ankle. She was found to have a tibia fracture. The patient was splinted and seen by Orthopedics who has recommended that the patient have a surgical repair of her right ankle fracture. Due to her cardiac history and past medical history, Hospital Medicine was asked to see and evaluate her for admission. PAST MEDICAL HISTORY: Significant for: 1. Type 2 diabetes. 2. Chronic kidney disease. 3. Depression. 4. Hyperlipidemia. 5. History of atrial fibrillation. 6. History of neuropathy. 7. Retinopathy. 8. Coronary artery disease. 9. History of congestive heart failure with a last known EF of 20% to 25%. 10. History of CVA. 11. Cardiomyopathy. 12. Chronic ischemic heart disease. 13. History of DVT. 14. [place] in 2012. PAST SURGICAL HISTORY: 1. History of gastric bypass. 2. Cholecystectomy. 3. Cataract surgery. 4. . 5. Lithotripsy. 6. CABG with a mitral valve repair, pacemaker and ICD placement in 2013. 7. Right ankle fracture repair. HOME MEDICATIONS: Include: 1. Iron 325 mg 1 tablet p.o. daily. 2. Multivitamin 1 tab p.o. daily. 3. Coreg 3.125 one tablet, twice daily. 5. Lantus 8 units p.o. daily. 6. Prandin 1 mg p.o. t.i.d. 7. Warfarin 2 mg p.o. daily, last dose was 07/12/19 at 4 p.m. 8. Furosemide 80 mg p.o. daily. 9. Trazodone 50 mg 1 tablet p.o. at bedtime. 10. Sertraline 200 mg p.o. daily. 11. Hydrocodone 5/325 one tablet every 6 hours as needed for pain. 12. Atacand 8 mg 1 tablet every day. ALLERGIES: To PENICILLIN and METFORMIN. FAMILY HISTORY: Father with history of stroke, at the age of 82 from a stroke. Mother with hypertension and [place], from a [place] at age 82. Mother with diabetes. No reported history of cancer. SOCIAL HISTORY: The patient quit smoking in 1979. Prior to that she smoked a pack a day for approximately 8 to 10 years. She denies any alcohol or illicit drug use. She is . She lives with her significant other. Surrogate decision maker in the event she is unable to make her own decisions is her significant other Deonte or her daughter. She is a full code. REVIEW OF SYSTEMS: A 14-point review of systems was completed. All pertinent positives were mentioned in the HPI, otherwise were negative. PHYSICAL EXAMINATION GENERAL: At this time, Ms. Gustafson is a 67-year-old female. She is alert and oriented, resting on the stretcher in the emergency room. She is in no acute distress. VITAL SIGNS: Blood pressure 144/80, heart rate 81, respirations are 22, O2 saturation is 98% on room air, temperature was 97.8. HEENT: Head is atraumatic and normocephalic. Eyes: EOMs are intact. Sclerae are anicteric and not pale. Oral mucosa appeared moist. NECK: Supple. She has no C-spine tenderness. LUNGS: Clear to auscultation bilaterally. Very diminished in the bases. There are no rales, rhonchi, or wheezes. CARDIAC: S1 and S2. Regular rate and rhythm. No rubs or gallops. ABDOMEN: Soft and nontender. Bowel sounds are present x4. EXTREMITIES: She is able to move all 4 extremities. She has limited range of motion to her right ankle as her right leg is splinted. She is able to move her toes. There is no clubbing or cyanosis. Pedal pulses are +2 bilaterally. Radial pulses are +2 bilaterally. She does have edema noted to her bilateral lower extremities and +2. DIAGNOSTIC STUDIES/LAB DATA: WBCs are 8.8, RBCs 3.45, hemoglobin 10.8, hematocrit 34, platelet count 163. INR 1.90. Sodium 142, potassium 3.5, chloride 109, carbon dioxide is 23, anion gap is 10, BUN is 40, creatinine 1.79 , glucose is 147, lactic acid is 0.7, calcium 9.2, magnesium 1.8. ASTs are 19, ALTs are 12, alkaline phosphatase is 82, TSH is 9.64. Urine is yellow, cloudy, pH is 5.0, specific gravity 1.012, urine protein is 1+. Ketones, blood nitrates , bilirubin, urobilinogen were all negative. Leukocyte esterase is 2+, wbc's are 3+, rbc's are 2+, squamous epithelial cells are present, bacteria is present, hyaline casts are present. She had an electrocardiogram that showed sinus rhythm at a rate of 78, left bundle branch block. She does have inverted T waves in V4, 5, and 6, which are consistent with prior EKGs as well as aVL. She had an x-ray of her right ankle, limited study, oblique displaced angulated fracture of the distal tibia. She had a foot x-ray. Radiologist's impression: Soft tissue swelling, probable fractures of the distal metatarsal bones. Recommend additional imaging for further definition. She had a hip and pelvis x-ray. Radiologist's impression: Osteopenia, osteoarthritis, peripheral artery disease, no radiographic evidence for hip fracture as x-rays may be negative with nondisplaced hip fracture. If there is persistent clinical concern, recommend consideration of an MRI. She had a knee x-ray. Radiologist's impression: Negative for fracture. Small joint effusion. She had a CT of the lower extremity. Oblique displaced angulated fracture of the distal tibia metaphyseal oblique nondisplaced intraarticular fracture of the distal fibula. The distal metatarsal area is not visualized. There is suggestion of fracture in that area on prior limited x- ray. Consider CT imaging of the foot for further evaluation. Fractures of the distal tibia and fibula previously described. No additional fractures were seen. The first metatarsal phalangeal joint has severe osteoarthritis. The remaining joint spaces appear relatively maintained. She had a chest x-ray. Radiologist's impression: No focal air space opacification, unchanged cardiomegaly and postoperative changes. ASSESSMENT AND PLAN: Ms. Gustafson is a 68-year-old female with past medical history significant for type 2 diabetes, chronic kidney disease, depression, hyperlipidemia, history of atrial fibrillation, retinopathy, neuropathy, coronary artery disease, history of congestive heart failure with a last known EF of 20% to 25%, history of cerebrovascular accident, who presented to the emergency room with the complaints of right ankle pain after a mechanical fall at home. She will be admitted in patient for: 1. Right ankle fracture. Management per Orthopedics. PT/OT per Orthopedics. The patient will be on bed rest. She needs to have her leg elevated on 4 pillows and ice in place. She is pending surgical clearance. She is pending testing prior to surgical clearance at this time. The patient is currently on Coumadin. She has an INR of 1.90. I will give her 1 dose of 5 mg of vitamin K. 2. Type 2 diabetes. The patient does take Lantus and Prandin at home. We will hold her Prandin and continue her Lantus 8 units subcu daily and she will have fingersticks a.c. and h.s. She can have lispro sliding scale. She will be placed on a consistent carb diet. 3. Depression. She should continue on Zoloft as previously prescribed. 4. Hyperlipidemia. She should continue on atorvastatin as previously prescribed. 5. History of cardiomyopathy and congestive heart failure. The patient should continue on Atacand. I will give her a dose of IV Lasix as she does have +2 pitting edema in her lower extremities. She was recently seen and evaluated by Dr. Singleton at the cardiology office on 07/12/19, who was changing her med due to decompensated congestive heart failure. Her last known EF of 20% to 25%. I am going to get a transthoracic echocardiogram. I did speak to Dr. Ernandez, who will see the patient in consultation prior to surgery, as the patient is high risk given her cardiac history and low EF and decompensated congestive heart failure. Dr. Ernandez did return call after reading the transthoracic echocardiogram and recommended that the patient be given Lasix 40 mg IV, magnesium, potassium 40 mEq, decrease her Coreg to 1.56 twice daily, half an inch of nitro paste, Greene catheter be placed. We will place her on strict Is and Os and daily weights. Her transthoracic echocardiogram today shows an estimated ejection fraction of 10% to 15%. Systolic function is worse from prior study in January 2017 when it was 20% to 25%. Regional wall motion abnormality, akinesis with scaring of the basal inferior myocardium, akinesis of the basal mid inferior septal and mid inferior myocardium, right ventricular systolic function is moderately reduced. The left atrium has mild-to- moderately dilated. Mitral valve prior procedures include surgical repair, this is an annuloplasty ring. Findings consistent with mild stenosis with normal function, status post repair. There is moderate regurgitation. Presence of regurgitation is new since the study of January 2017. Given her worsening ejection fraction, Cardiology will see this patient in the morning and has recommended consideration for possible need for advanced cardiac anesthesia care for surgical repair of her ankle fracture and the possible need to transfer. 6. History of atrial fibrillation. The patient is currently in sinus rhythm. I am going to hold the Coumadin because of her need for surgery. I did give her vitamin K 5 mg p.o. I will repeat an INR in the a.m. 7. FEN. The patient can have a consistent carbohydrate diet. 8. Code status. She is a full code. 9. DVT prophylaxis. SCDs are going to be contraindicated at this time as the patient does have swelling in bilateral lower legs and right ankle fracture. I am holding chemical DVT prophylaxis as the patient has to go for surgery and I am reversing her Coumadin for surgery at this time. TIME SPENT: Time spent on this admission was 60 minutes, greater than half that time was spent at the bedside reviewing events leading thus far to her hospitalization, performing physical exam, and reviewing my plan of care. I have discussed this with my attending, Dr. Alessandro Subramanian; he is in agreement with my plan. EDYTA GARLAND, ELLEN [id number]/[facility] #: [id number] LUZ MARIA
[2019-07-14] MEDS: HYDROcodone/ACETAMIN 5-325 MG* 1 TAB PO SCH ×4 (03:58→21:31)
[2019-07-14 05:56] LABS: ABS Eosinophils 0.1 10^3/ul (0-0.6); ABS Lymphocytes 1.3 10^3/ul (1.0-4.8); ABS Monocytes 0.6 10^3/ul (0-0.8); Eosinophil % 1.2 %; Hematocrit 30 % (35-47); Hemoglobin 9.6 g/dL (12.0-16.0); Lymphocyte % 18.8 %; Mean Corpuscular HGB Conc 32 g/dL (31-36); Mean Corpuscular Hemoglobin 32 pg (27-31); Mean Corpuscular Volume 99 fL (80-97); Mean Platelet Volume 9.2 fL (7.4-10.4); Platelet Count 141 10^3/uL (150-450); Red Blood Count 3.01 10^6 /uL (3.70-4.87); Red Cell Distribution Width 16 % (10-15); White Blood Count 6.9 10^3/uL (3.5-10.8)
[2019-07-14 06:04] LABS: INR 1.49 (0.82-1.09)
[2019-07-14 06:14] LABS: Anion Gap 6 mmol/L (2-11); BUN/Creatinine Ratio 19.7 (8-20); Blood Urea Nitrogen 40 mg/dL (6-24); CO2 Carbon Dioxide 26 mmol/L (22-32); Calcium 8.8 mg/dL (8.6-10.3); Chloride 108 mmol/L (101-111); EGFR African American 29.6 (>60); EGFR Non-African American 24.5 (>60); Glucose 191 mg/dL (70-100); Magnesium 2.5 mg/dL (1.9-2.7); Potassium 4.3 mmol/L (3.5-5.0); Sodium 140 mmol/L (135-145)
--- NOTE | 2019-07-14 08:27 | PN ---
Progress Note - Progress Note Date of Service: 07/14/19 SOAP: Subjective: Pt with right tib/fib fracture. Awaiting cardiology evaluation for medical optimization. Pain well controlled with leg splinted and elevated. Denies paresthesias or numbness. Denies CP/SOB, n/v. Objective: Vital Signs: Temp Pulse Resp BP Pulse Ox 98.3 F 80 17 131/64 96 07/14/19 07:06 07/14/19 07:06 07/14/19 07:06 07/14/19 07:06 07/14/19 07:06 Gen: A&Ox3, NAD at rest laying in bed RLE: Splint C/D/I. +f/e at MTPs. Sensation intact, brisk cap refill Labs: Laboratory Results - last 24 hr 07/13/19 07/13/19 07/13/19 11:54 11:54 11:54 WBC 8.8 RBC 3.45 L Hgb 10.8 L Hct 34 L MCV 99 H MCH 31 MCHC 32 RDW 16 H Plt Count 163 MPV 9.0 Neut % (Auto) 82.6 Lymph % (Auto) 10.6 [place] % (Auto) 5.5 Eos % (Auto) 0.9 Baso % (Auto) 0.4 Absolute Neuts (auto) 7.3 Absolute Lymphs (auto) 0.9 L Absolute Monos (auto) 0.5 Absolute Eos (auto) 0.1 Absolute Basos (auto) 0.0 Absolute Nucleated RBC 0.0 Nucleated RBC % 0.0 INR (Anticoag Therapy) Sodium 142 Potassium 3.5 Chloride 109 Carbon Dioxide 23 Anion Gap 10 BUN 40 H Creatinine 1.79 H Est GFR ( Amer) 34.3 Est GFR (Non-Af Amer) 28.3 BUN/Creatinine Ratio 22.3 H Glucose 147 H POC Glucose (mg/dL) Lactic Acid 0.7 Calcium 9.2 Magnesium 1.8 L Total Bilirubin 0.70 AST 19 ALT 12 Alkaline Phosphatase 82 Total Creatine Kinase 77 Troponin I 0.03 B-Natriuretic Peptide Total Protein 6.5 Albumin 3.7 Globulin 2.8 Albumin/Globulin Ratio 1.3 TSH 9.64 H Urine Color Urine Appearance Urine pH Ur Specific [place] Urine Protein Urine Ketones Urine Blood Urine Nitrate Urine Bilirubin Urine Urobilinogen Ur Leukocyte Esterase Urine WBC (Auto) Urine RBC (Auto) Ur Squamous Epith Cells Urine Bacteria Hyaline Casts Urine Glucose Urine Ascorbic Acid 07/13/19 07/13/19 07/13/19 11:54 13:28 14:12 WBC RBC Hgb Hct MCV MCH MCHC RDW Plt Count MPV Neut % (Auto) Lymph % (Auto) [place] % (Auto) Eos % (Auto) Baso % (Auto) Absolute Neuts (auto) Absolute Lymphs (auto) Absolute Monos (auto) Absolute Eos (auto) Absolute Basos (auto) Absolute Nucleated RBC Nucleated RBC % INR (Anticoag Therapy) 1.90 H Sodium Potassium Chloride Carbon Dioxide Anion Gap BUN Creatinine Est GFR ( Amer) Est GFR (Non-Af Amer) BUN/Creatinine Ratio Glucose POC Glucose (mg/dL) Lactic Acid Calcium Magnesium Total Bilirubin AST ALT Alkaline Phosphatase Total Creatine Kinase Troponin I B-Natriuretic Peptide > 1300 H Total Protein Albumin Globulin Albumin/Globulin Ratio TSH Urine Color Yellow Urine Appearance Cloudy Urine pH 5.0 Ur Specific [place] 1.012 Urine Protein 1+(30 mg/dl) A Urine Ketones Negative Urine Blood Negative Urine Nitrate Negative Urine Bilirubin Negative Urine Urobilinogen Negative Ur Leukocyte Esterase 2+ A Urine WBC (Auto) 3+(>20/hpf) A Urine RBC (Auto) 2+(6-10/hpf) A Ur Squamous Epith Cells Present A Urine Bacteria 1+ A Hyaline Casts Present A Urine Glucose Negative Urine Ascorbic Acid * A 07/13/19 07/13/19 07/14/19 17:41 22:09 05:28 WBC RBC Hgb Hct MCV MCH MCHC RDW Plt Count MPV Neut % (Auto) Lymph % (Auto) [place] % (Auto) Eos % (Auto) Baso % (Auto) Absolute Neuts (auto) Absolute Lymphs (auto) Absolute Monos (auto) Absolute Eos (auto) Absolute Basos (auto) Absolute Nucleated RBC Nucleated RBC % INR (Anticoag Therapy) Sodium 140 Potassium 4.3 Chloride 108 Carbon Dioxide 26 Anion Gap 6 BUN 40 H Creatinine 2.03 H Est GFR ( Amer) 29.6 Est GFR (Non-Af Amer) 24.5 BUN/Creatinine Ratio 19.7 Glucose 191 H POC Glucose (mg/dL) 180 H 347 H Lactic Acid Calcium 8.8 Magnesium 2.5 Total Bilirubin AST ALT Alkaline Phosphatase Total Creatine Kinase Troponin I B-Natriuretic Peptide Total Protein Albumin Globulin Albumin/Globulin Ratio TSH Urine Color Urine Appearance Urine pH Ur Specific [place] Urine Protein Urine Ketones Urine Blood Urine Nitrate Urine Bilirubin Urine Urobilinogen Ur Leukocyte Esterase Urine WBC (Auto) Urine RBC (Auto) Ur Squamous Epith Cells Urine Bacteria Hyaline Casts Urine Glucose Urine Ascorbic Acid 07/14/19 07/14/19 07/14/19 05:28 05:28 07:37 WBC 6.9 RBC 3.01 L Hgb 9.6 L Hct 30 L MCV 99 H MCH 32 H MCHC 32 RDW 16 H Plt Count 141 L MPV 9.2 Neut % (Auto) 71.4 Lymph % (Auto) 18.8 [place] % (Auto) 8.0 Eos % (Auto) 1.2 Baso % (Auto) 0.6 Absolute Neuts (auto) 5.0 Absolute Lymphs (auto) 1.3 Absolute Monos (auto) 0.6 Absolute Eos (auto) 0.1 Absolute Basos (auto) 0.0 Absolute Nucleated RBC 0.0 Nucleated RBC % 0.0 INR (Anticoag Therapy) 1.49 H Sodium Potassium Chloride Carbon Dioxide Anion Gap BUN Creatinine Est GFR ( Amer) Est GFR (Non-Af Amer) BUN/Creatinine Ratio Glucose POC Glucose (mg/dL) 297 H Lactic Acid Calcium Magnesium Total Bilirubin AST ALT Alkaline Phosphatase Total Creatine Kinase Troponin I B-Natriuretic Peptide Total Protein Albumin Globulin Albumin/Globulin Ratio TSH Urine Color Urine Appearance Urine pH Ur Specific [place] Urine Protein Urine Ketones Urine Blood Urine Nitrate Urine Bilirubin Urine Urobilinogen Ur Leukocyte Esterase Urine WBC (Auto) Urine RBC (Auto) Ur Squamous Epith Cells Urine Bacteria Hyaline Casts Urine Glucose Urine Ascorbic Acid Assessment: Right tib/fib fracture Plan: Awaiting medical/cardiac clearance for optimization prior to surgery Cont current pain medication Cont bedrest with strict RLE elevation
[2019-07-14] MEDS ORDERED: Dextrose 50% VIAL 50 ml IV PUSH PRN (08:36)
[2019-07-14] MEDS ORDERED: Insulin GLARGINE(*) 1 UNITS UNIT SUBCUT SCH (09:00)
[2019-07-14] MEDS ORDERED: Furosemide TAB* 40 MG PO SCH (09:00)
[2019-07-14] MEDS ORDERED: Sertraline* 100 MG TAB PO SCH (09:00)
[2019-07-14] MEDS ORDERED: Nitroglycerin 0.2 MG/HR PATCH* (5 MG) TRANSDERM SCH (09:00)
[2019-07-14] MEDS ORDERED: Valsartan TAB* 40 MG PO SCH (09:00)
[2019-07-14] MEDS ORDERED: Allopurinol TAB* 300 MG PO SCH (09:00)
[2019-07-14] MEDS: Nystatin TOP POWDER* 15 GM BTL TOPICAL SCH ×2 (09:05→21:44)
[2019-07-14] MEDS: Insulin LISPRO* 1 UNITS UNIT SUBCUT SCH ×4 (09:06→21:41)
[2019-07-14] MEDS: Carvedilol TAB* 3.125 MG PO SCH ×2 (09:11→21:39)
[2019-07-14] MEDS ORDERED: Heparin DRIP 25,000 UNITS(*) 25,000 UNITS/500 ML BAG IV SCH (10:30)
[2019-07-14 10:54] LABS: Troponin I 0.04 ng/mL (<0.04)
[2019-07-14] MEDS: Heparin VIAL(*) 5000 UNITS/ML VIAL (FIVE THOUSAND) IV PRN ×2 (11:03→23:51)
[2019-07-14 11:10] LABS: ABS Eosinophils 0.1 10^3/ul (0-0.6); ABS Lymphocytes 0.9 10^3/ul (1.0-4.8); ABS Monocytes 0.5 10^3/ul (0-0.8); ABS Neutrophils 5.5 10^3/ul (1.5-7.7); Eosinophil % 0.9 %; Hematocrit 29 % (35-47); Hemoglobin 9.2 g/dL (12.0-16.0); Lymphocyte % 12.8 %; Mean Corpuscular HGB Conc 32 g/dL (31-36); Mean Corpuscular Hemoglobin 32 pg (27-31); Mean Corpuscular Volume 100 fL (80-97); Mean Platelet Volume 9.5 fL (7.4-10.4); Nucleated Red Blood Cells % 0.1; Platelet Count 134 10^3/uL (150-450); Red Blood Count 2.92 10^6 /uL (3.70-4.87); Red Cell Distribution Width 16 % (10-15); White Blood Count 6.9 10^3/uL (3.5-10.8)
--- NOTE | 2019-07-14 11:18 | PN ---
Progress Note - Progress Note Date of Service: 07/14/19 SOAP: Subjective: Patient is on the Hospitalist service, echo late yesterday, seen by Cards this AM. Cards note not yet transcribed, but per report of Hospitalist, Dr. Ernandez deferred to anesthesia on patient's fitness for surgery at [facility]. I await the final note. Patient is on a heparin gtt. Pain control. Having troponins cycled. Patient' s pain is controlled. Per patient and her partner, there was no bleeding on the lower leg or ankle. No skin compromise was noted. Just some swelling and bruising after being on the ground for 7 hours. Objective: RLE: - elevated on 1 pillow - Splint in place - Toes warm - No severe pain with PROM toes. Intact AROM toes flexion and extension. Sensation intact toes Selected Entries 07/14/19 07:06 Temperature 98.3 F Pulse Rate 80 Respiratory 17 Rate Blood Pressure 131/64 (mmHg) O2 Sat by Pulse 96 Oximetry Laboratory Tests 07/13/19 07/13/19 07/13/19 13:28 14:12 17:41 WBC Hct INR (Anticoag Therapy) 1.90 H POC Glucose (mg/dL) 180 H Troponin I Urine Bilirubin Negative Ur Leukocyte Esterase 2+ A Urine WBC (Auto) 3+(>20/hpf) A Ur Squamous Epith Cells Present A Urine Bacteria 1+ A 07/13/19 07/14/19 07/14/19 22:09 05:28 05:28 WBC 6.9 Hct 30 L INR (Anticoag Therapy) POC Glucose (mg/dL) 347 H Troponin I 0.04 H* Urine Bilirubin Ur Leukocyte Esterase Urine WBC (Auto) Ur Squamous Epith Cells Urine Bacteria 07/14/19 07/14/19 07/14/19 05:28 07:37 10:45 WBC 6.9 Hct 29 L INR (Anticoag Therapy) 1.49 H POC Glucose (mg/dL) 297 H Troponin I Urine Bilirubin Ur Leukocyte Esterase Urine WBC (Auto) Ur Squamous Epith Cells Urine Bacteria Assessment: HD 2 R displaced distal tibial shaft fracture, non-displaced lateral malleolus fracture Significant cardiac history with CHF and an EF 10-15%, decreased from echo in 2017 along with CAD, afib with AICD, DM, CKD, neuropathy Plan: - Pain control - RLE elevation - I considered taking down splint for a skin check and reapplying a new splint. However, there is no report of skin compromise by ED staff or patient or her partner. Imaging shows no skin tenting. She is very comfortable in bed so I think that less is more. I don't want to cause significant pain during a re-splinting and possibly leave her in more discomfort. - The patient clearly needs surgery for ORIF R tibial shaft with an intramedullary nail. Likely also plating of the distal fibula. There is no sign of a compartment syndrome or skin or soft tissue compromise, which can occur with tibial shaft fractures. So surgery is not emergent and can be delayed until the patient is safe for surgery from a cardiac standpoint. - Cardiology discussed with patient surgery at [facility] versus transfer to [place] for surgery there with cardiac anesthesia. The patient would require general or spinal anesthesia, although for spinal anesthesia, INR would need to normalize pre-op. - Ortho will continue to follow - If cardiology and anesthesia decide that the patient is safe for surgery at [facility], we will need to make the patient NPO after midnight and stop the heparin gtt 4-6 hours preop. This could be Tuesday or Tuesday at [facility] or in [place].
[2019-07-14 11:19] LABS: EGFR Non-African American 23.2 (>60)
--- NOTE | 2019-07-14 12:56 | CONS ---
CARDIOLOGY CONSULTATION: DATE OF CONSULT: 07/14/19 CONSULTING PROVIDER: Edyta Garland NP REASON FOR EVALUATION: CHF, preoperative evaluation. HISTORY OF PRESENT ILLNESS: This is a very pleasant 68-year-old woman with a longstanding history of ischemic cardiomyopathy and multiple other comorbidities including history of tobacco use, hyperlipidemia, hypertension, renal insufficiency, and diabetes. She has had falls in the past and is limited to walking with a walker and walks short distances in the house, limited by musculoskeletal issues. Yesterday, apparently, she was standing in the kitchen and fell and fractured her right distal tibia with an oblique displaced angulated fracture. She is now admitted and is anticipating Orthopedic Surgery to address this. She denies any chest pain, syncope, or near syncope. No palpitations. She denies orthopnea. No fevers, chills, or sweats. She does report that over the last several weeks she had had increasing edema in her legs and was seen by Dr. Singleton, who increased her diuretic from Lasix 40 mg a day to 80 mg a day. She had gained about 3 pounds 3 weeks ago and had increased edema. She thinks that with the increased Lasix she had some improvement in her edema. When she saw Dr. Singleton on 07/11/19, she had complained of more shortness of breath and more uncomfortable. She had partial improvement in her edema. Her pacemaker interrogation from 07/05/19 revealed no arrhythmias detected; however, there was evidence of changes in thoracic impedance consistent with congestive heart failure. When Dr. Singleton saw her, her weight was up 5 pounds compared to March and his impression was that her cardiovascular status had decompensated and he recommended that she switch to Entresto to replace her Atacand and increased her Lasix from 40 mg to 80 mg. On admission here, she was given IV Lasix 40 and has had resolution of the edema in her left leg. PAST MEDICAL HISTORY: Includes type 2 diabetes chronic renal insufficiency hyperlipidemia coronary artery disease valvular heart disease, ischemic cardiomyopathy neuropathy retinopathy gout history of multiple strokes in the past. (AFIB listed in adnssiuon note but pateint denies afib and her primary car repairer pullman did not list afib in his PMH). JAROCHO thrombus noted on CAS in 2013 PAST SURGICAL HISTORY: Includes mitral valve repair and coronary artery bypass grafting in [address] Tyler. At that time, she had a VAUGHAN to the LAD, a saphenous vein graft to the PDA, mitral valve repair with a #25 ring and tricuspid valve repair with a #30 [place] AnCore band that was in December of 2012. In February of 2013, she had an ICD placed. She also has a history of lithotripsy, gastric bypass in 2004, cholecystectomy, cataract surgery, , and right ankle fracture repair. MEDICATIONS: As an inpatient include: 1. Valsartan 40 mg a day. 2. Trazodone 150 mg at bedtime. 3. Sertraline 200 mg a day. 4. Senna 1 tablet at bedtime. 5. MiraLAX 17 g p.o. daily p.r.n. 6. Nystatin topical. 7. Milk of magnesia p.r.n. 8. Insulin Humulin lispro. 9. Glargine 8 units subcu daily. 10. Ceftriaxone 50 mg q.24. 11. Carvedilol 3.125 half a tablet twice a day. 12. Atorvastatin 10 mg a day. 13. Allopurinol 300 mg a day. 14. [place] 5/325 one q.6. 15. Acetaminophen 650 q.4 p.r.n. 16. She has been getting p.r.n. Lasix IV, 40 mg last night and 40 mg this morning. ALLERGIES: Include PENICILLIN and METFORMIN. FAMILY HISTORY: Includes father of a CVA at 82. Mother with hypertension and OR, of OR at 82. Mother with diabetes. SOCIAL HISTORY: She is accompanied by her partner, former of 6 years and they live together. 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 She has 1 child. She drinks 1 cup of coffee a day. Denies alcohol use. Tobacco use was discontinued in 1979. She denies asthma, emphysema. REVIEW OF SYSTEMS: Review of systems x10 was negative except as above. PHYSICAL EXAM: She is a well-developed, well-nourished, overweight female, in no apparent distress. Blood pressure 131/64, pulse of 80, temperature of 98.4, O2 sat of 96% on room air. JVD of approximately 12 cm with minimal hepatojugular reflux. Carotids 2+ without bruits. No cervical adenopathy. No thyromegaly. Extraocular muscles intact. Sclerae anicteric. Cardiac Exam: S1 , S2 with a 2 to 3/6 holosystolic murmur at the left lower sternal border and 2/ 6 holosystolic murmur at the apex and a soft S3, irregular at times. Chest revealed bibasilar rales, which did not completely clear with coughing. Abdomen : Bowel sounds present. Nontender. No hepatosplenomegaly. Femoral pulses intact without bruits. Distal pulses on the left were diminished. No edema. Right leg was bandaged. She was alert and oriented x3, but admitted to short- term memory issues. Motor strength in the upper extremities 4/4 and in the left lower extremity. Deep tendon reflexes 2/4 in the upper extremities, noted tested in the lower extremities given her limited mobility. DIAGNOSTIC STUDIES/LAB DATA: Chest x-ray revealed cardiomegaly with some mild pulmonary vascular distribution. Labs include anemia with hematocrit of 30, hemoglobin of 9.6, platelet count of 141. BUN of 40, creatinine of 2.03. BNP greater than 1300. Potassium of 4.3, magnesium 2.5. TSH was elevated at 9.64. Troponin of 0.03. EKG from 07/13/19 revealed sinus rhythm with APCs, possible old inferior OR, poor R- wave progression, possible old anterior OR, and lateral ST-T changes, consider ischemia. The lateral T-wave changes were more pronounced compared to June of 2016, raising the possibility of ischemia, although they were present to some degree in 2017. Her echocardiogram from 07/13/19 revealed EF of 10% to 15%, decreased from 20% to 25% in January of 2017. She had reversible restrictive pattern, decreased diastolic compliance and/or increased left atrial pressure. Multiple wall motion abnormalities with severe global hypokinesis, more pronounced akinesis and scarring of the basal inferior and mid inferior septal, mid inferior myocardium. RV systolic function was moderately reduced. [id number] left atrial enlargement. Mitral valve repair with moderate regurgitation and mild stenosis. Mild aortic stenosis. Moderate TR and [id number] pulmonary hypertension. An interval decrease in LV function compared to 2017. IMPRESSION AND PLAN: My impression is that Ms. Gustafson has severe ischemic cardiomyopathy and multiple medical problems including diabetes and renal insufficiency. She appears to have some decompensation of congestive heart failure and interval decrease in her chronically compromised LV function. It is unclear whether this is due to ischemia or not; however, she has a very low output state and is at markedly increased risk for morbidity and mortality to major operative proceeding. I have discussed this with her and her as well as JEREMIAS Lehman and Edyta Garland NP. For the time being, I would recommend the followin. We would try to optimize her risk by optimizing her volume status. We would continue with p.r.n. IV Lasix, watching to avoid prerenal azotemia. 2. We would add nitrates to her regimen for her heart failure and possible ischemic cardiomyopathy. 3. We would continue low dose of valsartan as tolerated. 4. Agree with reducing her carvedilol for the time being. Once her heart failure is better compensated, we could consider advancing that. 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 Singleton's recommendations to convert her to Entresto. 6. She is at increased risk for cardioembolic events on the basis of her low EF and previous stroke, possible AFib, and past JAROCHO thrombus.. I suggest consider using IV heparin to bridge her perioperatively. 7. If you need to proceed to surgery, I would use a magnet over her defibrillator to turn off VT therapy. This is in order to disable the VT therapy and avoid defibrillator shocks due to cautery. 8. We would suggest consultation with Anesthesia to formulate a strategy to optimize her management perioperatively. She is at increased risk and Orthopedics and Anesthesia may consider other options for minimizing her risk with anesthesia. We would try to maintain her potassium over 4. 9. Prognosis is guarded. [id number]/[facility] #: [id number] Discussed with Dr. Tavares and Dr. Farley as well. JFM 07.14.19 MTDD
--- NOTE | 2019-07-14 15:40 | DS ---
CC: Dr. Rubens Cunningham; Dr. Ej Singleton DISCHARGE SUMMARY: DATE OF ADMISSION: 07/13/19 DATE OF TRANSFER: 07/14/19 PRIMARY CARE PHYSICIAN: Dr. Rubens Cunningham. OUTPATIENT RN REHAB: Dr. Ej Singleton. PRIMARY DIAGNOSES: 1. Distal tibia and fibula fractures. 2. Heart failure with reduced ejection fraction, EF 10% to 15%. SECONDARY DIAGNOSES: 1. Coronary artery disease, CO 2012, status post CABG with mitral valve repair , pacemaker and ICD placement in 2013. 2. History of gastric bypass. 3. History of stroke. 4. History of atrial thrombus, on anticoagulation. 5. Diabetes type 2. 6. Chronic kidney disease. CONSULTATIONS: Dr. Ernandez of Cardiology and Dr. Farley of Orthopedic Surgery. DISCHARGE MEDICATIONS: 1. Heparin drip for therapeutic anticoagulation. 2. Carvedilol 1.5625 every 12 hours. 3. Atorvastatin 10 mg nightly. 4. Nitroglycerin 0.2 mg per hour patch. 5. Valsartan 40 mg daily (substituted for home candesartan) 6. Furosemide 40 mg orally daily. 7. Sertraline 200 mg daily. 8. Insulin glargine 8 units daily. 9. Insulin lispro sliding scale (to replace home repaglinide). 10. Acetaminophen 650 mg every 8 hours as needed for mild pain. 11. Hydrocodone/acetaminophen 5/325 every 6 hours as needed for severe pain. 12. Allopurinol 300 mg daily. 13. Trazodone 150 mg at bedtime. 14. Senna 1 tab at bedtime as needed for constipation. 15. Milk of magnesia every 12 hours as needed for constipation. HISTORY OF PRESENT ILLNESS: Ms. Gustafson is a 68-year-old woman with coronary artery disease with an CO in 2012 and a CABG with mitral valve repair, pacemaker and ICD placement in 2013; heart failure, reduced ejection fraction, with EF 20% to 25%; history of CVA and left atrial thrombus; diabetes type 2; chronic kidney disease; depression, who is presenting to the emergency room after a fall. She reports standing in her kitchen when she lost her balance and fell at approximately 2 a.m. on the morning of presentation. The patient denied loss of consciousness or head injury. She denies neck pain, but she does complain of right ankle pain and inability to get up from the ground. 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 He called an ambulance who brought her to the emergency room for further evaluation. The patient denies fevers, chills, weight loss, chest pain , cough. She also denies dysuria, urinary frequency, or suprapubic tenderness. She reports mild lower extremity swelling at her baseline. She denies slurred speech, focal weakness, or decreased sensation. HOSPITAL COURSE: In the emergency room, the patient had an x-ray of her right ankle concerning for tibia fracture. She was splinted and seen by the orthopedics team, who recommended a CT scan and likely surgical repair. Given her significant cardiac history, Cardiology was consulted for preop clearance and the hospitalist service was asked to admit the patient. A repeat transthoracic echocardiogram resulted with reduced ejection fraction now to 10% to 15%. Given the patient's lower extremity edema, she was given furosemide IV with good urine output and resolution in her lower extremity swelling. Her warfarin was held in preparation for surgical procedure, although her INR on presentation was 1.9. She was bridged with a heparin drip given her history of atrial thrombus and stroke. Cardiology consult discussed her case with Anesthesia and the patient was deemed to require cardiac anesthesia for pending Orthopedic Surgery procedure, which is not available at this institution. Discussion with the patient was had and she preferred to return to [facility] where she has had prior cardiac procedures. For cardiac optimization, the patient was started on nitrates by Cardiology and continued on low dose of carvedilol. On the day of discharge, the patient denied pain at rest. She denied orthopnea when lying flat in her hospital bed. She states her lower extremity edema has resolved. She denies constipation. REVIEW OF SYSTEMS: A complete 10-point review of systems was performed and negative. Of note, she explicitly denies dysuria, flank pain, fevers, chills, or urinary frequency. PHYSICAL EXAMINATION: Afebrile, heart rate 80, blood pressure 131/64, respiratory rate 17, oxygen saturation 96% on room air. General: well-appearing woman, in no acute distress, who is alert and interactive with this interviewer and her family at bedside. HEENT: With OP clear. Moist mucous membranes. Neck: Supple. JVP to approximately 12 cm. Carotids 2+ without bruits. Heart: Regular rate and rhythm. 3/6 holosystolic murmur best appreciated at the left lower sternal border. Lungs were clear to auscultation bilaterally. Abdomen: Soft, nontender, nondistended. Extremities: Warm and well perfused without evidence of edema. Distal right leg in bandage, splinted by Ortho. Neuro: A and O x3. No focal deficits. CN II through XII intact. DIAGNOSTIC STUDIES/LAB DATA: CBC notable for hemoglobin 9.2 which appears to be the patient's baseline with MCV of 100. BMP notable for BUN/creatinine 40/2, and this creatinine is the patient's baseline. Troponin 0.04. INR 1.49 on the day of discharge. UA with leukocyte esterase 2+, wbc's 3+, rbc's 2+, urine bacteria 1+. Microbiology with urine culture growing Klebsiella pneumoniae over 100,000 colony- forming units. EKG with normal sinus rhythm with occasional APCs, possible old inferior CO, poor R- wave progression, possible old anterior CO, and lateral ST-T changes with lateral T- wave changes near baseline from prior EKGs. Initial lower extremity CT of the right with oblique, displaced, angulated fracture of the distal tibial metaphysis; oblique, nondisplaced intraarticular fracture of the distal fibula. The distal metatarsal areas not visualized. There was a suggestion of fracture in this area on the prior limited x-ray study. Repeat CT right lower extremity without contrast: There is diffuse soft tissue swelling. Noted fractures of the distal tibia and fibula. No additional fractures seen. Specifically, the metatarsal bones appear intact. The area thought to represent a fracture on the prior lateral x-ray study corresponds with a large osteophyte arising from the first metatarsal, which appears intact. There is moderate-to- severe osteoarthritic change in the first metatarsophalangeal joint. The remaining joint spaces appear relatively maintained. Ankle x-ray: Limited study; oblique, displaced, angulated fracture of the distal tibia. Foot x-ray of the right foot: Soft tissue swelling and probable fractures of the distal metatarsal bones, recommend additional imaging for further definition. Hip/pelvis x-ray 2 views with osteopenia, osteoarthritis, peripheral arterial disease, and no radiographic evidence for hip fracture. Knee x-ray, right, 2 views negative for fracture. Chest x-ray without focal airspace opacification, unchanged cardiomegaly and postoperative changes. DISCHARGE PLAN: The patient was accepted for transfer to [facility] for orthopedic surgery, where she will be able to get cardiac anesthesia given her significant history of cardiac disease. She will be continued on heparin drip for anticoagulation bridge now that she is off her home warfarin in anticipation of surgery. She did receive 1 dose of furosemide 40 mg IV with excellent urine output and her lower extremity edema has resolved, so she is switched back to furosemide 40mg PO daily. Throughout admission, she was without respiratory symptoms and was able to lie flat in bed without experiencing orthopnea or PND. Her only other new medication from this hospitalization is nitroglycerin patch 0.2 mg per hour patch that was placed by Cardiology on 07/14/19. The patient was continued on her home insulin glargine 8 units daily, but her home Prandin was held and she was initiated on insulin sliding scale, so she will be transferred on this. Her antibiotics were not continued as she has been without fever, leukocytosis, or signs or symptoms of a urinary tract infection. DIET: Heart-healthy diet and caffeine is okay. ACTIVITY: Bedrest with strict right lower extremity elevation. DISPOSITION: To [facility]. CONDITION: Stable. TIME SPENT: Approximately 60 minutes was spent on discharge of this patient, more than half of which was spent with care coordination at bedside for interview and exam. [id number]/[facility] #: [id number] LUZ MARIA
[2019-07-14] MEDS ORDERED: VANCOMYCIN PO SOLN* 125 MG/5ML 25 MG/ML PO SCH (17:00)
[2019-07-14] MEDS: Atorvastatin* 10 MG TAB PO SCH (17:39)
[2019-07-14] MEDS ORDERED: Nitro Patch/OINT Remove PATCH OFF SCH ×2 (21:00)
[2019-07-14] MEDS: traZODone TAB* 50 MG TAB PO SCH (21:31)
[2019-07-15 05:03] LABS: ABS Eosinophils 0.2 10^3/ul (0-0.6); ABS Lymphocytes 1.8 10^3/ul (1.0-4.8); ABS Monocytes 0.5 10^3/ul (0-0.8); ABS Neutrophils 4.8 10^3/ul (1.5-7.7); Eosinophil % 2.4 %; Hematocrit 30 % (35-47); Hemoglobin 9.5 g/dL (12.0-16.0); Lymphocyte % 24.2 %; Mean Corpuscular HGB Conc 32 g/dL (31-36); Mean Corpuscular Hemoglobin 32 pg (27-31); Mean Corpuscular Volume 100 fL (80-97); Nucleated Red Blood Cells % 0.1; Platelet Count 132 10^3/uL (150-450); Red Blood Count 2.99 10^6 /uL (3.70-4.87); Red Cell Distribution Width 16 % (10-15); White Blood Count 7.4 10^3/uL (3.5-10.8)
[2019-07-15] MEDS: HYDROcodone/ACETAMIN 5-325 MG* 1 TAB PO SCH (05:22)
[2019-07-15 07:10] VITALS: BP 135/69
[2019-07-15] MEDS ORDERED: Furosemide TAB* 40 MG PO SCH (09:00)
--- NOTE | 2019-07-30 14:00 | DS ---
ADDENDUM: DISCHARGE SUMMARY: Actual date of discharge 07/15/19. CONDITION: Stable. [id number]/[facility] #: [id number]
== END 2019-07-15 06:50 | disposition short-term general hospital (02) | DRG 563 ==
LOC: ED 10:38 → SSU 15:19
PROVIDERS: ADMIT Internal Medicine; ATTEND Internal Medicine
DX: S82.61XA Displaced fracture of lateral malleolus of right fibula, initial encounter for closed fracture (principal); S82.391A Other fracture of lower end of right tibia, initial encounter for closed fracture; S82.831A Other fracture of upper and lower end of right fibula, initial encounter for closed fracture; W18.30XA Fall on same level, unspecified, initial encounter; Y92.009 Unspecified place in unspecified non-institutional (private) residence as the place of occurrence of the external cause; M25.774 Osteophyte, right foot; Z88.0 Allergy status to penicillin; I25.5 Ischemic cardiomyopathy; I08.2 Rheumatic disorders of both aortic and tricuspid valves; I27.20 Pulmonary hypertension, unspecified; I25.10 Atherosclerotic heart disease of native coronary artery without angina pectoris; E11.22 Type 2 diabetes mellitus with diabetic chronic kidney disease; E11.319 Type 2 diabetes mellitus with unspecified diabetic retinopathy without macular edema; N18.9 Chronic kidney disease, unspecified; E78.5 Hyperlipidemia, unspecified; F32.9 Major depressive disorder, single episode, unspecified; I48.91 Unspecified atrial fibrillation; E11.42 Type 2 diabetes mellitus with diabetic polyneuropathy; E11.51 Type 2 diabetes mellitus with diabetic peripheral angiopathy without gangrene; I44.7 Left bundle-branch block, unspecified; M85.851 Other specified disorders of bone density and structure, right thigh; M16.11 Unilateral primary osteoarthritis, right hip; I25.2 Old myocardial infarction; Z79.4 Long term (current) use of insulin; Z79.01 Long term (current) use of anticoagulants; Z79.899 Other long term (current) drug therapy; Z88.8 Allergy status to other drugs, medicaments and biological substances; Z86.718 Personal history of other venous thrombosis and embolism; Z86.73 Personal history of transient ischemic attack (TIA), and cerebral infarction without residual deficits; Z98.84 Bariatric surgery status; Z95.810 Presence of automatic (implantable) cardiac defibrillator; Z95.2 Presence of prosthetic heart valve; Z95.1 Presence of aortocoronary bypass graft; Z83.3 Family history of diabetes mellitus; Z82.49 Family history of ischemic heart disease and other diseases of the circulatory system; Z82.3 Family history of stroke; Z87.891 Personal history of nicotine dependence
CPT/HCPCS: 36415; 71045; 80048; 80053; 81003; 81015; 82550; 82565; 83605; 83735; 83880; 84443; 84484; 84520; 85025; 85610; 85730; 87077; 87086; 87186; 93005; 93306; 99284; A9270-GY; J0696; J1644; J1940; J3475